=== PATIENT | male | born 1940 | race Hispanic/Latino ===

== ENCOUNTER 2017-04-27 11:30 | Outpatient (RCR) | payer MEDICARE ==
[~2017-04-27 11:30] MED LIST: ALENDRONATE SOD70 MG PO; AMLODIPINE-BEN1 EACH PO; ASPIRIN EC81 MG PO; ATORVASTATIN CA20 MG PO; CIPRO500 MG PO; CLOPIDOGREL75 MG PO; EXELON1 EACH TD; INSULIN 70/30 SC; IRON159 MG PO; LIDOCAINE VISC 2% SOLN 15 ML UDC ONE; METFORMIN HCL850 MG PO; OMEPRAZOLE40 MG PO; ULTRAM 50MG50 MG PO
== END 2017-04-29 ==
LOC: WCC 11:30
PROVIDERS: ATTEND Podiatrist Foot & Ankle Surgery
DX: E11.621 Type 2 diabetes mellitus with foot ulcer (principal); M86.172 Other acute osteomyelitis, left ankle and foot; L97.524 Non-pressure chronic ulcer of other part of left foot with necrosis of bone; I70.202 Unspecified atherosclerosis of native arteries of extremities, left leg; I10 Essential (primary) hypertension; I25.10 Atherosclerotic heart disease of native coronary artery without angina pectoris
CPT/HCPCS: 15275; 15276; G0463 ×9; Q4121

== ENCOUNTER → 2017-05-30 | Outpatient (RCR) | payer MEDICARE | LOC: WCC 05-02 12:44 | PROVIDERS: ATTEND Podiatrist Foot & Ankle Surgery | DX: E11.621 Type 2 diabetes mellitus with foot ulcer (principal); M86.172 Other acute osteomyelitis, left ankle and foot; L97.524 Non-pressure chronic ulcer of other part of left foot with necrosis of bone; L97.529 Non-pressure chronic ulcer of other part of left foot with unspecified severity; I70.202 Unspecified atherosclerosis of native arteries of extremities, left leg; B96.5 Pseudomonas (aeruginosa) (mallei) (pseudomallei) as the cause of diseases classified elsewhere; B96.89 Other specified bacterial agents as the cause of diseases classified elsewhere; I10 Essential (primary) hypertension; I25.10 Atherosclerotic heart disease of native coronary artery without angina pectoris | CPT/HCPCS: 15275; 97597; G0463 ×10; Q4131 ==

== ENCOUNTER → 2017-06-27 | Outpatient (RCR) | payer MEDICARE ==
[~2017-06-27] MED LIST changes: +MINERAL OIL/PETROLAT/GLYCERI 6OZ BTL ONE
== END ==
LOC: WCC 06-01 11:26
PROVIDERS: ATTEND Podiatrist Foot & Ankle Surgery
DX: E11.621 Type 2 diabetes mellitus with foot ulcer (principal); M86.172 Other acute osteomyelitis, left ankle and foot; L97.524 Non-pressure chronic ulcer of other part of left foot with necrosis of bone; I70.202 Unspecified atherosclerosis of native arteries of extremities, left leg; I10 Essential (primary) hypertension; I25.10 Atherosclerotic heart disease of native coronary artery without angina pectoris
CPT/HCPCS: 15275 ×2; 36415; 82948; 99212; 99213 ×9; Q4131 ×2

== ENCOUNTER 2017-07-25 12:30 | Outpatient (RCR) | payer MEDICARE ==
[~2017-07-25 12:30] MED LIST changes: -LIDOCAINE VISC 2% SOLN 15 ML UDC ONE
[2017-07-25] MEDS ORDERED: MINERAL OIL/PETROLAT/GLYCERI 6OZ BTL ONE (13:42)
== END 2017-07-28 ==
LOC: WCC 12:30
PROVIDERS: ATTEND Podiatrist Foot & Ankle Surgery
DX: E11.621 Type 2 diabetes mellitus with foot ulcer (principal); M86.172 Other acute osteomyelitis, left ankle and foot; L97.524 Non-pressure chronic ulcer of other part of left foot with necrosis of bone; I70.202 Unspecified atherosclerosis of native arteries of extremities, left leg; I10 Essential (primary) hypertension; I25.10 Atherosclerotic heart disease of native coronary artery without angina pectoris
CPT/HCPCS: 15275; 99212; 99213 ×6; Q4131

== ENCOUNTER → 2017-08-27 | Day surgery (SDC) | payer MEDICARE ==
[2017-08-24 08:48] LABS: BASOPHILS # (AUTO) 0.1 (0.0-0.1); BASOPHILS % 0.5 % (0.0-1.0); EOSINOPHILS # (AUTO) 0.2 (0.0-0.4); EOSINOPHILS % 1.8 % (0.0-6.0); HEMATOCRIT 33.9 % (38.2-49.6); HEMOGLOBIN 11.2 g/dL (14.0-18.0); LYMPHOCYTES # (AUTO) 1.8 (1.0-3.2); LYMPHOCYTES % 18.9 % (18.0-39.1); MEAN CORPUSCULAR VOLUME 72.6 fL (81-99); MONOCYTES # (AUTO) 0.8 (0.2-0.8); MONOCYTES % 8.1 % (4.4-11.3); NEUTROPHILS # (AUTO) 6.9 (2.1-6.9); NEUTROPHILS % 70.5 % (38.7-80.0); PLATELET COUNT 356 x10e3/uL (140-360); RED BLOOD COUNT 4.67 x10e6/uL (4.3-5.7)
[2017-08-24 09:08] LABS: ALANINE AMINOTRANSFERASE 11 IU/L (0-55); ALBUMIN 3.2 g/dL (3.5-5.0); ALBUMIN/GLOBULIN RATIO 0.7 (0.8-2.0); ALKALINE PHOSPHATASE 68 IU/L (40-150); ANION GAP 14.3 mmol/L (8-16); BLOOD UREA NITROGEN 10 mg/dL (7-26); BUN/CREATININE RATIO 15 (6-25); CALCIUM 9.6 mg/dL (8.4-10.2); CARBON DIOXIDE 24 mmol/L (22-29); CHLORIDE 95 mmol/L (98-107); CREATININE, SERUM 0.65 mg/dL (0.72-1.25); EST GLOMERULAR FILTRATION RATE > 60 ML/MIN (60-); GLUCOSE 139 mg/dL (74-118); POTASSIUM 4.3 mmol/L (3.5-5.1); SODIUM 129 mmol/L (136-145)
[~2017-08-27] VITALS: Ht 170.2 cm; Wt 55.3 kg
[~2017-08-27] MED LIST changes: +FENTANYL CITRATE/PF 100MCG/2 ML INJ ONE; +HEPARIN SOD/SOD CHLORIDE 2,000 ML ONE; +IOPAMIDOL 370 MG/ML 200 ML INFUS..BTL INJ ONE; +LIDOCAINE HCL 2% LOCAL 20 ML VIAL ONE; +MIDAZOLAM HCL 2 MG/2 ML VIAL ONE; -MINERAL OIL/PETROLAT/GLYCERI 6OZ BTL ONE; +SODIUM CHLORIDE 0.9% 1000ML 1,000 ML ONE
--- OUTSIDE RECORDS SUMMARY | 2017-08-27 07:07 | XMS REPORT ---
[facility] Address Unknown Phone Unavailable Care Team Providers Care Metallurgy Laboratory Technician Name Role Phone AV DONIS Unavailable Unavailable Problems This patient has no known problems. Allergies, Adverse Reactions, Alerts This patient has no known allergies or adverse reactions. Medications This patient has no known medications. Results Test Description Test Time Test Comments Text Results Atomic Results Result Comments CHEST 2 VIEWS [place] [address] Patient Name: KELLY GUAMAN MR #: [id number] : 1940 Age/Sex: 76/M Req #: [id number] Adm Physician: Ordered by: AV DONIS DPM Report #: [id number] Location: OR Room/Bed: Procedure: [id number] DX/CHEST 2 VIEWS Exam Date: 01/15/17 Exam Time: 1300 REPORT STATUS: Signed PROCEDURE: X-RAY CHEST , TWO VIEWS COMPARISON: 11/15/2016. INDICATIONS: pre-op foot surgery FINDINGS: LUNGS: No consolidations or edema. Biapical pleural- parenchymal scar. Right upper lobe calcified granuloma. PLEURA: No effusions or pneumothorax. HEART T MEDIASTINUM: The heart is within normal size-limits. Tortuous thoracic aorta with atherosclerotic calcification. BONES T SOFT TISSUES: No acute findings. CONCLUSION: No acute thoracic abnormality. Dictated by: Lyubov Doty M.D. on 01/15/2017 at 14:55 Electronically approved by: Lyubov Doty M.D. on 01/15/2017 at 14:55 Dictated By: LYUBOV DOTY MD [id number] Transcribed By: SAIDA on 01/15/17 1455 COPY TO: AV DONIS DPM
--- OUTSIDE RECORDS SUMMARY | 2017-08-27 07:07 | XMS REPORT | Continuity of Care Document ---
Author Author [facility] Organization [facility] Address [address] [place] [address] Phone Unavailable Care Team Providers Care Maths Tutor Name Role Phone KAREN GAMING PCP Insurance Providers Guarantor Juanito Guaman Address [address] [place] [address] Email NONE Payer Medicare A & B Policy Number [id number] Subscriber's Name Juanito Guaman Relationship 18 Self / Same As Patient Group Number [id number] Group Name RETIRED Effective Date 03 Advance Directives Directive Response Recorded Date/Time Does the patient have an advance directive? No 11/09/16 5:04am If yes, is advance directive on file with [facility]? No 11/09/16 5:04am If not on file with [facility] will patient provide a copy? No 01/16/17 8:17am Do you have a Directive to Physician? No 06/28/17 1:48pm Do you have a Medical Power of Cytology Technologist? No 06/28/17 1:48pm Do you have an out of hospital Do Not Resuscitate Order? No 06/28/17 1:48pm Do you have any special needs we should be aware of? No 06/28/17 1:48pm Do you have a support person here with you today? No 06/28/17 1:48pm Did patient receive Notice of Privacy Practices? Yes 06/28/17 1:48pm Did patient receive patient rights and responsibilities? Yes 06/28/17 1:48pm Problems Medical Problem Onset Date Status Cellulitis Unknown Gangrene Unknown Hyponatremia Unknown Osteomyelitis Unknown Poorly controlled diabetes mellitus Unknown Medications Current Home Medications Medication Dose Units Route Directions Days Qty Instructions Start Date Amlodipine Besylate/Benazepril (Amlodipine-Benazepril 5-20 Mg) 1 Each Capsule 1 Tab Oral Daily Atorvastatin Calcium 20 Mg Tablet 40 Mg Oral Bedtime 30 Tab Ciprofloxacin Hcl (Cipro) 500 Mg Tablet 500 Mg Oral Every 12 Hours 30 Tab Clopidogrel Bisulfate (Clopidogrel) 75 Mg Tablet 75 Mg Oral Daily 30 Days 30 Tab 10/25/16 Ferrous Sulfate, Dried (Iron) 159 Mg Tablet.er 1 Tab Oral Daily Insulin 70/30 8 Units Subcutaneously Twice A Day Metformin Hcl 850 Mg Tablet 850 Mg Oral Twice A Day 30 Tab Omeprazole 40 Mg Capsule.dr 40 Mg Oral Daily Rivastigmine Tartrate (Exelon) 1 Each Patch 9.5 Mg Transderm Daily Tramadol Hcl (Ultram 50MG*) 50 Mg Tab 50 Mg Oral Three Times A Day as needed for Pain Past Home Medications Medication Directions Ordered Status Alendronate Sodium 70 Mg Tablet, 70 Mg Oral Weekly Discontinued Aspirin (Aspirin Ec) 81 Mg Tablet.dr, 81 Mg Oral Daily 10/25/16 Discontinued Social History Social History Problem Response Recorded Date/Time Onset Date Status Hx Psychiatric Problems No 11/09/2016 5:04am Not Applicable Not Applicable Hx Eating Disorder No 11/09/2016 5:04am Not Applicable Not Applicable Hx Substance Use Disorder No 11/09/2016 5:04am Not Applicable Not Applicable Hx Depression No 11/09/2016 5:04am Not Applicable Not Applicable Hx Alcohol Use No 11/09/2016 5:04am Not Applicable Not Applicable Hx Substance Use Treatment No 11/09/2016 5:04am Not Applicable Not Applicable Hx Physical Abuse No 11/09/2016 5:04am Not Applicable Not Applicable Hospital Discharge Instructions No hospital discharge instruction information available. Plan of Care Prescriptions See Medication Section Functional Status No functional status information available. Allergies, Adverse Reactions, Alerts Allergen Type Severity Reaction Status Last Updated Aspirin Allergy Unknown RASH/FACIAL SWELLING Active 01/15/17 Immunizations No immunization information available. Vital Signs Acute Vital Signs Vital Response Date/Time Temperature (Fahrenheit) 97.0 degrees F (97.6 - 99.5) 11/16/2016 4:21pm Pulse Pulse Rate (adult) 69 bpm (60 - 90) 11/16/2016 4:21pm Respiratory Rate 20 bpm (12 - 24) 11/16/2016 4:21pm Blood Pressure 152/71 mm Hg 11/16/2016 4:21pm Results Laboratory Results Test Name Result Units Flags Reference Collection Date/Time Result Date/ Time Comments Triglycerides Level 203 MG/DL H 0-149 10/23/2016 9:45am 10/23/2016 10: 19am Cholesterol Level 185 MD/DL 0-199 10/23/2016 9:45am 10/23/2016 10:19am Less than 200 mg/dL Low Risk 201 - 239 mg/dL Borderline Risk 240 mg/dl and greater High Risk LDL Cholesterol 93 MG/DL 60-130 10/23/2016 9:45am 10/23/2016 10:19am HDL Cholesterol 51 MG/DL 40-60 10/23/2016 9:45am 10/23/2016 10:19am Cholesterol/HDL Ratio 3.6 L 3.9-4.7 10/23/2016 9:45am 10/23/2016 10: 19am Prothrombin Time 13.6 seconds 11.9-14.5 11/11/2016 10:30am 11/11/2016 10:52am Prothromb Time International Ratio 0.99 11/11/2016 10:30am 2016 10:52am Oral Anticoagulant Therapy INR Values: 1. Low Intensity Therapy 1.5 - 2.0 2. Moderate Intensity Therapy 2.0 - 3.0 3. High Intensity Therapy(1) 2.5 - 3.5 4. High Intensity Therapy(2) 3.0 - 4.0 5. Panic Value INR > 5.0 Activated Partial Thromboplast Time 50.9 seconds H 23.8-35.5 11/11/2016 10:30am 11/11/2016 11:39am Urine Color STRAW YELLOW 11/11/2016 11:15am 11/11/2016 12:08pm Urine Clarity CLEAR CLEAR 11/11/2016 11:1511/11/2016 12:08pm Urine Specific [place] 1.010 1.010-1.025 11/11/2016 11:152016 12:08pm Urine pH 8 H 5 - 7 11/11/2016 11:11/11/2016 12:08pm Urine Leukocyte Esterase NEGATIVE NEGATIVE 11/11/2016 11:152016 12:08pm Urine Nitrite NEGATIVE NEGATIVE 11/11/2016 11:1511/11/2016 12: 08pm Urine Protein NEGATIVE NEGATIVE 11/11/2016 11:11/11/2016 12: 08pm Urine Glucose (UA) 1+ H NEGATIVE 11/11/2016 11:1511/11/2016 12: 08pm Urine Ketones TRACE H NEGATIVE 11/11/2016 11:11/11/2016 12:08pm Urine Urobilinogen 0.2 mg/dL 0.2 - 1 11/11/2016 11:1511/11/2016 12: 08pm Urine Bilirubin NEGATIVE NEGATIVE 11/11/2016 11:11/11/2016 12: 08pm Urine Blood NEGATIVE NEGATIVE 11/11/2016 11:1511/11/2016 12:08pm Urine WBC 0-5 /HPF 0-5 11/11/2016 11:1511/11/2016 12:27pm Urine RBC 0-5 /HPF 0-5 11/11/2016 11:1511/11/2016 12:27pm Urine Bacteria NONE /HPF NONE 11/11/2016 11:1511/11/2016 12:27pm Urine Epithelial Cells RARE /LPF NONE 11/11/2016 11:1511/11/2016 12: 27pm Urine Sperm PRESENT NONE 11/11/2016 11:1511/11/2016 12:27pm Lactic Acid Level 10.5 MG/DL 4.5-19.8 11/08/2016 10:30pm 11/08/2016 10: 54pm Magnesium Level 2.2 MG/DL H 1.3-2.1 11/08/2016 9:15pm 11/08/2016 10: 42pm Creatine Kinase 29 IU/L L 30-200 11/09/2016 4:35pm 11/09/2016 5:06pm Creatine Kinase MB 0.70 ng/mL 0.00-5.00 11/09/2016 4:35pm 11/09/2016 5: 35pm Troponin I 0.004 ng/mL 0-0.300 11/09/2016 4:35pm 11/09/2016 5:35pm Vancomycin Level Trough 7.7 ug/mL 5.0-10.0 11/15/2016 8:30am 2016 9:15am White Blood Count 10.16 x10e3/uL 4.8-10.8 03/14/2017 1:35pm 03/14/2017 5:10pm Red Blood Count 4.37 x10e6/uL 4.3-5.7 03/14/2017 1:35pm 03/14/2017 5: 10pm Hemoglobin 11.3 g/dL L 14.0-18.0 03/14/2017 1:35pm 03/14/2017 5:10pm Hematocrit 34.5 % L 38.2-49.6 03/14/2017 1:35pm 03/14/2017 5:10pm Mean Corpuscular Volume 78.9 fL L 81-99 03/14/2017 1:35pm 03/14/2017 5: 10pm Mean Corpuscular Hemoglobin 25.9 pg L 28-32 03/14/2017 1:35pm 2016 5:10pm Mean Corpuscular Hemoglobin Concent 32.8 g/dL 31-35 03/14/2017 1:35pm 03/14/2017 5:10pm Red Cell Distribution Width 16.3 % H 11.7-14.4 03/14/2017 1:35pm 2016 5:10pm Platelet Count 415 x10e3/uL H 140-360 03/14/2017 1:35pm 03/14/2017 5: 10pm Neutrophils (%) (Auto) 70.0 % 38.7-80.0 03/14/2017 1:35pm 03/14/2017 5: 10pm Lymphocytes (%) (Auto) 21.0 % 18.0-39.1 03/14/2017 1:35pm 03/14/2017 5: 10pm Monocytes (%) (Auto) 7.4 % 4.4-11.3 03/14/2017 1:35pm 03/14/2017 5: 10pm Eosinophils (%) (Auto) 0.7 % 0.0-6.0 03/14/2017 1:35pm 03/14/2017 5: 10pm Basophils (%) (Auto) 0.5 % 0.0-1.0 03/14/2017 1:35pm 03/14/2017 5:10pm IM GRANULOCYTES % 0.4 % 0.0-1.0 03/14/2017 1:35pm 03/14/2017 5:10pm Neutrophils # (Auto) 7.1 H 2.1-6.9 03/14/2017 1:35pm 03/14/2017 5: 10pm Lymphocytes # (Auto) 2.1 1.0-3.2 03/14/2017 1:35pm 03/14/2017 5:10pm Monocytes # (Auto) 0.8 0.2-0.8 03/14/2017 1:35pm 03/14/2017 5:10pm Eosinophils # (Auto) 0.1 0.0-0.4 03/14/2017 1:35pm 03/14/2017 5:10pm Basophils # (Auto) 0.1 0.0-0.1 03/14/2017 1:35pm 03/14/2017 5:10pm Absolute Immature Granulocyte (auto 0.04 x10e3/uL 0-0.1 03/14/2017 1: 35pm 03/14/2017 5:10pm Sodium Level 131 mmol/L L 136-145 03/14/2017 1:35pm 03/14/2017 5:30pm Potassium Level 4.5 mmol/L 3.5-5.1 03/14/2017 1:3503/14/2017 5:30pm Chloride Level 96 mmol/L L 98-107 03/14/2017 1:3503/14/2017 5:30pm Carbon Dioxide Level 23 mmol/L 22-29 03/14/2017 1:35pm 03/14/2017 5: 30pm Anion Gap 16.5 mmol/L H 8-16 03/14/2017 1:35pm 03/14/2017 5:30pm Blood Urea Nitrogen 8 mg/dL 7-26 03/14/2017 1:35pm 03/14/2017 5:30pm Creatinine 0.69 mg/dL L 0.72-1.25 03/14/2017 1:35pm 03/14/2017 5:30pm BUN/Creatinine Ratio 12 6-25 03/14/2017 1:35pm 03/14/2017 5:30pm Estimat Glomerular Filtration Rate > 60 ML/MIN 60- 03/14/2017 1:35pm 5:30pm Ranges were taken from the National Kidney Disease Education Program and the National Kid[employer] Foundation literature. Reference ranges: 60 or greater: Normal 16-59 (for 3 consecutive months): Chronic kidney disease 15 or less: Kidney failure Glucose Level 94 mg/dL 74-118 03/14/2017 1:35pm 03/14/2017 5:30pm Calcium Level 9.5 mg/dL 8.4-10.2 03/14/2017 1:35pm 03/14/2017 5:30pm Hemoglobin A1c Percent 6.1 % 4.0-7.0 03/14/2017 1:35pm 03/14/2017 5: 28pm Total Bilirubin 0.5 mg/dL 0.2-1.2 03/14/2017 1:35pm 03/14/2017 5:30pm Aspartate Amino Transf (AST/SGOT) 23 IU/L 5-34 03/14/2017 1:35pm 2016 5:30pm Alanine Aminotransferase (ALT/SGPT) 17 IU/L 0-55 03/14/2017 1:35pm 5:30pm Total Protein 8.6 g/dL H 6.5-8.1 03/14/2017 1:35pm 03/14/2017 5:30pm Albumin 3.5 g/dL 3.5-5.0 03/14/2017 1:35pm 03/14/2017 5:30pm Globulin 5.1 g/dL H 2.3-3.5 03/14/2017 1:35pm 03/14/2017 5:30pm Albumin/Globulin Ratio 0.7 L 0.8-2.0 03/14/2017 1:35pm 03/14/2017 5: 30pm Alkaline Phosphatase 98 IU/L 40-150 03/14/2017 1:35pm 03/14/2017 5: 30pm Prealbumin 12 mg/dL 9-32 03/14/2017 1:35pm 03/15/2017 10:22am Performed at: - [facility] [id number] Acupuncturist: Brenden Shay MD, Phone: [phone] Bedside Glucose 276 mg/dL H 70-120 06/04/2017 10:43am 06/04/2017 10: 53am Meter ID: [id number] Microbiology Results Procedure Source Organism/Result Collection Date/Time Result Date/Time Result Status Blood Culture Blood GRAM POSITIVE MARIANO 11/08/2016 9:19pm 11/14/2016 8:11am Final Blood Culture Blood NO GROWTH AFTER 5 DAYS, FINAL REPORT 11/08/2016 9:19pm 11/14/2016 5:23am Final Wound Culture Foot, Left PSEUDOMONAS AERUGINOSA 01/16/2017 10:37am 2016 10:08am Final Procedures Procedure Status Date Provider(s) DETACHMENT AT LEFT FOOT, PARTIAL 1ST RAY, OPEN APPROACH Completed 11/15/16 PAULINE GALEAS DPM INSERTION OF INFUSION DEV INTO SUP VENA CAVA, PERC APPROACH Completed DOROTHY HERZOG MD SKIN SUB GRAFT FACE/NK/HF/G Completed 01/16/17 AV DONIS DPM AMPUTATION THRU METATARSAL Completed 01/16/17 AV DONIS DPM X-ray of chest, two views Active 11/08/16 JOHN DONAHUE MD X-ray of chest, two views Active 01/15/17 AV DONIS DPM Encounters Encounter Location Arrival/Admit Date Discharge/Depart Date Attending Provider Discharged [facility] 07/25/17 12:30pm 11:59pm AV DONIS DPM Discharged [facility]ring [facility] 06/01/17 11:26am 11:59pm AV DONIS DPM Discharged [facility]ring [facility] 05/02/17 12:44pm 11:59pm AV DONIS DPM Discharged [facility]ring [facility] 03/30/17 11:59am 11:59pm AV DONIS DPM Discharged [facility]urring [facility] 02/28/17 9:11am 03/29/17 11:59pm AV DONIS DPM Discharged [facility]ring [facility] 01/29/17 7:26am 02/27/17 11:59pm JOHANNA NOWAK MD Registered Surgical Day Care [facility] 01/16/17 8:17am AV DONIS DPM Discharged [facility]ring [facility] 12/29/16 9:25am 01/27/17 11:59pm AV DONIS DPM Departed Emergency Room [facility] 12/10/16 5:14pm 7:11pm LOUISA FERNÁNDEZ MD Discharged [facility]ring [facility] 12/04/16 7:48am 12/28/16 11:59pm AV DONIS DPM Discharged [facility]urring [facility] 11/20/16 9:15am 11/27/16 11:59pm JOHANNA NOWAK MD Discharged Inpatient [facility] 11/09/16 12:57am 6:37pm STEPHEN DUFF MD Discharged Inpatient (obs) [facility] 10/24/16 5:32pm 12:56pm DAMARIS HAIDER MD Registered Surgical Day Care [facility] 10/24/16 6:48am DAMARIS HAIDER MD
[2017-08-27 07:09] VITALS: BP 120/67
[2017-08-27 11:26] VITALS: BP 135/68
--- NOTE | 2017-10-02 12:38 | Operative Report ---
DATE OF PROCEDURE: August 27, 2017 INDICATIONS: Coronary artery disease, abnormal stress test. PROCEDURES PERFORMED: 1. Left heart catheterization, selective coronary angiography. 2. Deployment of right groin Vascade. Access was obtained in the right femoral artery. A 6-Nauruan sheath was placed. Diagnostic coronary angiogram revealed a patent left main. Left anterior descending artery 50%, mid 90%, circumflex 90% tandem lesions. 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 Grade 2 collaterals from the left coronary system supplied the right posterior descending artery. Left internal mammary artery was widely patent. Right groin repaired using Vascade closer device. Patient was discharged home with recommendations for coronary artery bypass surgery. Job#: [id number]
== END | disposition home or self-care (01) ==
LOC: CATH LAB 07:05
PROVIDERS: ATTEND Internal Medicine Interventional Cardiology
DX: I25.10 Atherosclerotic heart disease of native coronary artery without angina pectoris (principal); I25.82 Chronic total occlusion of coronary artery; R94.39 Abnormal result of other cardiovascular function study; I10 Essential (primary) hypertension; Z88.6 Allergy status to analgesic agent; Z01.812 Encounter for preprocedural laboratory examination; Z79.02 Long term (current) use of antithrombotics/antiplatelets; Z79.4 Long term (current) use of insulin
CPT/HCPCS: 36415; 77002; 80053; 85025; 93458; C1760; C1769; J2001; J2250; J7030; Q9967; 36140

== ENCOUNTER → 2018-10-04 | Outpatient (CLI) | payer MEDICARE ==
[~2018-10-04] MED LIST changes: -FENTANYL CITRATE/PF 100MCG/2 ML INJ ONE; -HEPARIN SOD/SOD CHLORIDE 2,000 ML ONE; -IOPAMIDOL 370 MG/ML 200 ML INFUS..BTL INJ ONE; -LIDOCAINE HCL 2% LOCAL 20 ML VIAL ONE; -MIDAZOLAM HCL 2 MG/2 ML VIAL ONE; +REGADENOSON 0.4 MG/5 ML SYR IV ONE; -SODIUM CHLORIDE 0.9% 1000ML 1,000 ML ONE
== END ==
LOC: NM 09:54
PROVIDERS: ATTEND Internal Medicine
DX: I25.10 Atherosclerotic heart disease of native coronary artery without angina pectoris (principal); Z95.1 Presence of aortocoronary bypass graft
CPT/HCPCS: 78452; 93017; A9502; J2785

== ENCOUNTER 2018-10-17 14:31 | Observation (INO) | payer MEDICARE ==
[2018-10-16 14:47] LABS: BASOPHILS # (AUTO) 0.1 (0.0-0.1); BASOPHILS % 0.5 % (0.0-1.0); EOSINOPHILS # (AUTO) 0.1 (0.0-0.4); EOSINOPHILS % 0.9 % (0.0-6.0); HEMATOCRIT 38.6 % (38.2-49.6); HEMOGLOBIN 12.9 g/dL (14.0-18.0); LYMPHOCYTES # (AUTO) 1.6 (1.0-3.2); LYMPHOCYTES % 14.5 % (18.0-39.1); MEAN CORPUSCULAR HEMOGLOBIN 29.3 pg (28-32); MEAN CORPUSCULAR HGB CONC 33.4 g/dL (31-35); MEAN CORPUSCULAR VOLUME 87.5 fL (81-99); MONOCYTES # (AUTO) 0.8 (0.2-0.8); MONOCYTES % 7.4 % (4.4-11.3); NEUTROPHILS # (AUTO) 8.4 (2.1-6.9); NEUTROPHILS % 76.3 % (38.7-80.0); PLATELET COUNT 281 x10e3/uL (140-360); RED BLOOD COUNT 4.41 x10e6/uL (4.3-5.7); RED CELL DISTRIBUTION WIDTH 12.3 % (11.7-14.4)
[2018-10-16 14:57] LABS: INR 0.96; PROTHROMBIN TIME 13.3 seconds (11.9-14.5)
[2018-10-16 15:07] LABS: ALANINE AMINOTRANSFERASE 22 IU/L (0-55); ALBUMIN 3.8 g/dL (3.5-5.0); ALKALINE PHOSPHATASE 70 IU/L (40-150); ANION GAP 13.8 mmol/L (8-16); BLOOD UREA NITROGEN 15 mg/dL (7-26); BUN/CREATININE RATIO 20 (6-25); CALCIUM 9.6 mg/dL (8.4-10.2); CARBON DIOXIDE 25 mmol/L (22-29); CHLORIDE 93 mmol/L (98-107); CREATININE, SERUM 0.76 mg/dL (0.72-1.25); EST GLOMERULAR FILTRATION RATE > 60 ML/MIN (60-); GLUCOSE 170 mg/dL (74-118); POTASSIUM 4.8 mmol/L (3.5-5.1); SODIUM 127 mmol/L (136-145)
[~2018-10-17] VITALS: Ht 170.2 cm; Wt 62.1 kg
[~2018-10-17 14:31] MED LIST changes: -REGADENOSON 0.4 MG/5 ML SYR IV ONE
--- OUTSIDE RECORDS SUMMARY | 2018-10-17 14:34 | XMS REPORT | Clinical Summary ---
Author Author [employer] [facility] [employer] Address Unknown Phone Unavailable Care Team Providers Care Manager Oracle Database Name Role Phone Asked, No Pcp PCP Unavailable Allergies Comments Active Allergy Reactions Severity Noted Date Aspirin Swelling High 11/07/2017 Medications End Date Status Medication Sig Dispensed Refills Start Date Active insulin 70/30 NPH and Inject 10 0 regular human (HumuLIN Units under 70/30) 100 unit/mL the skin 2 (70-30) injection (two) times a day before meals. Active alendronate (FOSAMAX) 70 Take 70 mg by 0 MG tablet mouth every 7 days. Take in the morning with a full glass of water on an empty stomach, do NOT take anything else by mouth or lie down for the next 30 min. TAKES SUNDAY Active metFORMIN (GLUCOPHAGE) Take 500 mg 0 500 mg tablet by mouth 2 (two) times a day with meals. Active clopidogrel (PLAVIX) 75 Take 75 mg by 0 mg tablet mouth daily. Active omeprazole (PriLOSEC) 40 Take 40 mg by 0 MG capsule mouth daily. 11/17/2018 Active atorvastatin (LIPITOR) 10 Take 1 tablet 90 tablet 0 MG tablet (10 mg total) 8 by mouth nightly. 11/17/2018 Active ferrous sulfate 325 (65 Take 1 tablet 90 tablet 0 FE) MG tablet (325 mg 8 total) by mouth 2 (two) times a day with meals. 11/17/2017 Discontinued amlodipine-benazepril Take 1 0 (LOTREL) 10-20 mg per capsule by capsule mouth daily. 02/15/2018 metoprolol tartrate Take 1 tablet 180 tablet 0 (LOPRESSOR) 25 mg tablet (25 mg total) 8 by mouth 2 (two) times a day for 90 days. Active Problems Problem Noted Date Physical deconditioning 11/13/2017 Postoperative anemia due to acute blood loss 11/13/2017 Thrombocytopenia due to blood loss 11/13/2017 CAD (coronary artery disease) 11/12/2017 S/P CABG x 3 11/12/2017 Acute postoperative pulmonary insufficiency 11/12/2017 Post-op pain 11/12/2017 Essential hypertension 11/12/2017 Type 2 diabetes mellitus without complication 11/12/2017 Encounters Care Team Description Date Type Specialty Nancy Aragon RN 11/17/2017 Patient Quality Outreach Roberto Carlos Martines MD CABx3 (AO-FREE POWER-LAD; AO-OM2-PDA) 11/12/2017 Surgery Cardiothoracic Surgery Jennifer Eugene NP 11/12/2017 Anesthesia Cardiothoracic Surgery Event Roberto Carlos Martines MD 11/12/2017 Hospital Cardiovascular - Encounter 11/17/2017 Roberto Carlos Martines MD 11/07/2017 Hospital Radiology Encounter Roberto Carlos Martines MD 11/07/2017 Hospital Pulmonology Encounter Roberto Carlos Martines MD Preop testing (Primary Dx) 11/07/2017 Pre-Admit Pre-Admission Testing Testing Appointment after 10/16/2017 Social History Date Tobacco Use Types Packs/Day Years Used Never Smoker Smokeless Tobacco: Never Used Alcohol Use Drinks/Week oz/Week Comments Yes 2 Standard 1.2 drinks or equivalent Sex Assigned at Date Recorded Not on file Industry Job Start Date Occupation Not on file Not on file Not on file Travel End Travel History Travel Start No recent travel history available. Last Filed Vital Signs Time Taken Vital Sign Reading 11/17/2017 11:14 AM CDT Blood Pressure 124/59 11/17/2017 11:14 AM CDT Pulse 86 11/17/2017 11:14 AM CDT Temperature 36.8 C (98.2 F) 11/17/2017 11:14 AM CDT Respiratory Rate 14 11/17/2017 11:14 AM CDT Oxygen Saturation 99% - Inhaled Oxygen - Concentration 11/17/2017 5:00 AM CDT Weight 59.5 kg (131 lb 3.2 oz) 11/12/2017 1:28 PM CDT Height 170 cm (5' 6.93") 11/12/2017 1:28 PM CDT Body Mass Index 20.59 Plan of Treatment Health Maintenance Due Date Last Done Comments DIABETIC RETINAL EYE EXAM 1938 DIABETIC FOOT EXAM 1948 URINE MICROALBUMIN 1948 SHINGLES VACCINES (#1) 1988 65+ PNEUMOCOCCAL VACCINE 09/12/2003 04/30/2017 (2 of 2 - PPSV23) INFLUENZA VACCINE 11/28/2018 04/30/2017 Implants Device Identifier Shelf Expiration Date Model / Serial / Lot Implanted Type [place] [id number] / / Lead Pace Gonzalo Mycrdl Unipol Tmpry Cardiovasc N/A: N/A [employer] Streamline - [id number] [facility] - Implanted: 11/12/2017 (Quantity not Implants CARDIAC on file) SRGRY 02/27/2022 [id number] / / [id number] Drain Fluted Full Chnl Silicone Rnd Surgical N/A: N/A CR BARD Hubless 19fr 1/4in 6.3mm - Implants; [id number] Expanders; Implanted: 11/12/2017 (Quantity not Extenders; on file) Surgical Wires 02/27/2022 [id number] / / [id number] Drain Fluted Full Chnl Silicone Rnd Surgical N/A: N/A CR BARD Hubless 19fr 1/4in 6.3mm - Implants; [id number] Expanders; Implanted: 11/12/2017 (Quantity not Extenders; on file) Surgical Wires 05/27/2022 [id number] / / [id number] Silver Perph Vasclr Ptfe 1.2x10cm Vascular N/A: N/A BARD 1.65mm - [id number] Graft PERIPHERAL Implanted: 11/12/2017 (Quantity not VASCULAR on file) Procedures Comments Procedure Name Priority Date/Time Associated Diagnosis POC GLUCOSE Routine 11/17/2017 12:27 PM CDT POC GLUCOSE Routine 11/17/2017 11:13 AM CDT POC GLUCOSE Routine 11/17/2017 7:41 AM CDT HC COMPLETE BLD COUNT Routine 11/17/2017 W/AUTO DIFF 4:45 AM CDT ZZESTIMATED GFR Routine 11/17/2017 4:00 AM CDT MAGNESIUM LEVEL Routine 11/17/2017 4:00 AM CDT BASIC METABOLIC PANEL Routine 11/17/2017 4:00 AM CDT POC GLUCOSE Routine 11/16/2017 9:13 PM CDT POC GLUCOSE Routine 11/16/2017 4:49 PM CDT XR CHEST 1 VW PORTABLE Routine 11/16/2017 1:34 PM CDT POC GLUCOSE Routine 11/16/2017 12:23 PM CDT POC GLUCOSE Routine 11/16/2017 8:03 AM CDT HC COMPLETE BLD COUNT Routine 11/16/2017 W/AUTO DIFF 5:00 AM CDT ZZESTIMATED GFR Routine 11/16/2017 4:00 AM CDT MAGNESIUM LEVEL Routine 11/16/2017 4:00 AM CDT BASIC METABOLIC PANEL Routine 11/16/2017 4:00 AM CDT POC GLUCOSE Routine 11/15/2017 10:22 PM CDT POC GLUCOSE Routine 11/15/2017 5:00 PM CDT POC GLUCOSE Routine 11/15/2017 12:07 PM CDT POC GLUCOSE Routine 11/15/2017 7:30 AM CDT POC GLUCOSE Routine 11/15/2017 5:46 AM CDT POC GLUCOSE Routine 11/15/2017 5:11 AM CDT CBC HEMOGRAM Routine 11/15/2017 3:03 AM CDT ZZESTIMATED GFR Routine 11/15/2017 12:00 AM CDT PHOSPHORUS LEVEL Routine 11/15/2017 12:00 AM CDT IONIZED CALCIUM Routine 11/15/2017 12:00 AM CDT MAGNESIUM LEVEL Routine 11/15/2017 12:00 AM CDT BASIC METABOLIC PANEL Routine 11/15/2017 12:00 AM CDT POC GLUCOSE Routine 11/14/2017 9:11 PM CDT POC GLUCOSE Routine 11/14/2017 4:40 PM CDT POC GLUCOSE Routine 11/14/2017 1:39 PM CDT POC GLUCOSE Routine 11/14/2017 11:56 AM CDT POC GLUCOSE Routine 11/14/2017 11:24 AM CDT POC GLUCOSE Routine 11/14/2017 10:08 AM CDT POC GLUCOSE Routine 11/14/2017 7:43 AM CDT POC GLUCOSE Routine 11/14/2017 6:28 AM CDT ECG 12-LEAD Routine 11/14/2017 6:14 AM CDT POC GLUCOSE Routine 11/14/2017 5:38 AM CDT POC GLUCOSE Routine 11/14/2017 4:34 AM CDT POC GLUCOSE Routine 11/14/2017 4:03 AM CDT POC GLUCOSE Routine 11/14/2017 1:32 AM CDT ZZESTIMATED GFR Routine 11/14/2017 1:15 AM CDT MAGNESIUM LEVEL Routine 11/14/2017 1:15 AM CDT BASIC METABOLIC PANEL Routine 11/14/2017 1:15 AM CDT POC GLUCOSE Routine 11/14/2017 12:33 AM CDT CBC HEMOGRAM Routine 11/14/2017 12:30 AM CDT POC GLUCOSE Routine 11/14/2017 12:03 AM CDT POC GLUCOSE Routine 11/14/2017 12:01 AM CDT POC GLUCOSE Routine 11/13/2017 8:11 PM CDT IONIZED CALCIUM Routine 11/13/2017 4:40 PM CDT PHOSPHORUS LEVEL Routine 11/13/2017 4:40 PM CDT MAGNESIUM LEVEL Routine 11/13/2017 4:40 PM CDT POTASSIUM LEVEL Routine 11/13/2017 4:40 PM CDT POC GLUCOSE Routine 11/13/2017 3:40 PM CDT POC GLUCOSE Routine 11/13/2017 2:21 PM CDT POC GLUCOSE Routine 11/13/2017 11:17 AM CDT XR CHEST 1 VW PORTABLE STAT 11/13/2017 9:38 AM CDT POC GLUCOSE Routine 11/13/2017 7:11 AM CDT XR CHEST 1 VW PORTABLE Routine 11/13/2017 6:52 AM CDT POC GLUCOSE Routine 11/13/2017 6:05 AM CDT ECG 12-LEAD Routine 11/13/2017 5:44 AM CDT POC GLUCOSE Routine 11/13/2017 5:02 AM CDT IONIZED CALCIUM Routine 11/13/2017 4:00 AM CDT PHOSPHORUS LEVEL Routine 11/13/2017 4:00 AM CDT O2 SATURATION, VENOUS Routine 11/13/2017 4:00 AM CDT ZZESTIMATED GFR Routine 11/13/2017 4:00 AM CDT MAGNESIUM LEVEL Routine 11/13/2017 4:00 AM CDT BASIC METABOLIC PANEL Routine 11/13/2017 4:00 AM CDT CBC HEMOGRAM Routine 11/13/2017 4:00 AM CDT POC GLUCOSE Routine 11/13/2017 3:55 AM CDT POC GLUCOSE Routine 11/13/2017 2:46 AM CDT POC GLUCOSE Routine 11/13/2017 1:00 AM CDT POC GLUCOSE Routine 11/13/2017 12:20 AM CDT POC GLUCOSE Routine 11/12/2017 10:59 PM CDT POC GLUCOSE Routine 11/12/2017 10:06 PM CDT POC GLUCOSE Routine 11/12/2017 9:06 PM CDT ECG 12-LEAD Routine 11/12/2017 8:39 PM CDT XR CHEST 1 VW PORTABLE Routine 11/12/2017 8:35 PM CDT IONIZED CALCIUM, ARTERIAL Routine 11/12/2017 8:30 PM CDT PROTHROMBIN TIME WITH INR Routine 11/12/2017 8:30 PM CDT PARTIAL THROMBOPLASTIN Routine 11/12/2017 TIME (PTT) 8:30 PM CDT HC COMPLETE BLD COUNT Routine 11/12/2017 W/AUTO DIFF 8:30 PM CDT ARTERIAL BLOOD GAS Routine 11/12/2017 8:30 PM CDT ZZESTIMATED GFR Routine 11/12/2017 8:23 PM CDT PHOSPHORUS LEVEL Routine 11/12/2017 8:23 PM CDT MAGNESIUM LEVEL Routine 11/12/2017 8:23 PM CDT BASIC METABOLIC PANEL Routine 11/12/2017 8:23 PM CDT IONIZED CALCIUM, ARTERIAL STAT 11/12/2017 7:10 PM CDT GLUCOSE LEVEL, SYRINGE STAT 11/12/2017 7:10 PM CDT HEMOGLOBIN, SYRINGE STAT 11/12/2017 7:10 PM CDT POTASSIUM, SYRINGE STAT 11/12/2017 7:10 PM CDT SODIUM LEVEL, SYRINGE STAT 11/12/2017 7:10 PM CDT ARTERIAL BLOOD GAS, STAT 11/12/2017 CORRECTED 7:10 PM CDT FIBRINOGEN Routine 11/12/2017 6:32 PM CDT PLATELET COUNT Routine 11/12/2017 6:32 PM CDT PROTHROMBIN TIME WITH INR Routine 11/12/2017 6:32 PM CDT LACTIC ACID, SYRINGE Routine 11/12/2017 6:32 PM CDT GLUCOSE LEVEL, SYRINGE Routine 11/12/2017 6:32 PM CDT HEMOGLOBIN, SYRINGE Routine 11/12/2017 6:32 PM CDT IONIZED CALCIUM, ARTERIAL Routine 11/12/2017 6:32 PM CDT SODIUM LEVEL, SYRINGE Routine 11/12/2017 6:32 PM CDT POTASSIUM, SYRINGE Routine 11/12/2017 6:32 PM CDT ARTERIAL BLOOD GAS, Routine 11/12/2017 CORRECTED 6:32 PM CDT TRANSFUSE RED BLOOD CELLS Routine 11/12/2017 6:08 PM CDT GLUCOSE LEVEL, SYRINGE STAT 11/12/2017 5:35 PM CDT IONIZED CALCIUM, ARTERIAL STAT 11/12/2017 5:35 PM CDT HEMOGLOBIN, SYRINGE STAT 11/12/2017 5:35 PM CDT POTASSIUM, SYRINGE STAT 11/12/2017 5:35 PM CDT SODIUM LEVEL, SYRINGE STAT 11/12/2017 5:35 PM CDT ARTERIAL BLOOD GAS, STAT 11/12/2017 CORRECTED 5:35 PM CDT GLUCOSE LEVEL, SYRINGE STAT 11/12/2017 5:01 PM CDT IONIZED CALCIUM, ARTERIAL STAT 11/12/2017 5:01 PM CDT SODIUM LEVEL, SYRINGE STAT 11/12/2017 5:01 PM CDT HEMOGLOBIN, SYRINGE STAT 11/12/2017 5:01 PM CDT POTASSIUM, SYRINGE STAT 11/12/2017 5:01 PM CDT ARTERIAL BLOOD GAS, STAT 11/12/2017 CORRECTED 5:01 PM CDT TRANSFUSE RED BLOOD CELLS Routine 11/12/2017 4:39 PM CDT GLUCOSE LEVEL, SYRINGE STAT 11/12/2017 4:28 PM CDT IONIZED CALCIUM, ARTERIAL STAT 11/12/2017 4:28 PM CDT LACTIC ACID, SYRINGE STAT 11/12/2017 4:28 PM CDT HEMOGLOBIN, SYRINGE STAT 11/12/2017 4:28 PM CDT SODIUM LEVEL, SYRINGE STAT 11/12/2017 4:28 PM CDT POTASSIUM, SYRINGE STAT 11/12/2017 4:28 PM CDT ARTERIAL BLOOD GAS, STAT 11/12/2017 CORRECTED 4:28 PM CDT ANESTHESIA CHELE Routine 11/12/2017 4:17 PM CDT Procedure Note - Ariadne Covarrubias MD - 11/12/2017 4:17 PM CDT Procedure Performed: CHELE Start Time: 11/12/2017 1:38 PM End Time: 11/12/2017 7:23 PM Preanesth esia Checklist: Patient identified , IV assessed, risks and benefits discussed, monitors and equipment assessed, procedure being performed at surgeon's request, anesthesia consent obtained. General Procedure Informatio n Diagnostic Indication s for Echo: hemodynami c monitoring Physician Requesting Echo: ROBERTO CARLOS MARTINES Location performed: OR Intubated Bite block not placed Heart visualized Probe Insertion: Easy Probe Type: Multiplane Modalities : 2D only, color flow mapping and pulse wave Doppler Echocardi ographic and Doppler Measuremen ts Ventricle s Right Ventricle: Cavity size normal. Hypertroph y not present. Thrombus not present. Global function normal. Ejection Fraction 50%. Left Ventricle: Cavity size normal. Hypertroph y present. Thrombus not present. Global Function normal. Ejection Fraction 55%. Ventricul ar Regional Function: 1- Basal Anterosept al: normal 2- Basal Anterior: normal 3- Basal Anterolate ral: normal 4- Basal Inferolate ral: normal 5- Basal Inferior: normal 6- Basal Inferosept al: normal 7- Mid Anterosept al: normal 8- Mid Anterior: normal 9- Mid Anterolate ral: normal 10- Mid Inferolate ral: normal 11- Mid Inferior: normal 12- Mid Inferosept al: normal 13- Apical Anterior: normal 14- Apical Lateral: normal 15- Apical Inferior: normal 16- Apical Septal: normal 17- [place]: normal Valves Aortic Valve: Annulus normal. Stenosis not present. Regurgitat ion absent. Leaflets normal. Leaflet motions normal. Mitral Valve: Annulus normal. Stenosis not present. Regurgitat ion absent. Leaflets normal. Leaflet motions normal. Tricuspid Valve: Annulus normal. Stenosis not present. Regurgitat ion absent. Leaflets normal. Leaflet motions normal. Pulmonic Valve: Annulus normal. Stenosis not present. Regurgitat ion absent. Aorta Ascending Aorta: Size normal. Diameter 2 cm. Dissection not present. Plaque thickness less than 3 mm. Mobile plaque not present. Aortic Arch: Size normal. Diameter 2.3 cm. Dissection not present. Plaque thickness greater than 3 mm. Mobile plaque not present. Descending Aorta: Size normal. Diameter 2.1 cm. Dissection not present. Plaque thickness greater than 3 mm. Mobile plaque not present. Atria Right Atrium: Size normal. Spontaneou s echo contrast not present. Thrombus not present. Tumor not present. Device not present. Left Atrium: Size dilated. Spontaneou s echo contrast not present. Thrombus not present. Tumor not present. Device not present. Left atrial appendage normal. Septa Atrial Septum: Intra-atri al septal morphology aneurysmal . Ventricul ar Septum: Intra-vent ricular septum morphology normal. Diastolic Function Measuremen ts: Diastolic Dysfunctio n Grade=II E=ms A=ms E/A Ratio= DT=ms S/D= IVRT= Other Findings Pericardiu m: normal Pleural Effusion: none Pulmonary Arteries: normal Pulmonary Venous Flow: blunted (decreased ) systolic flow Anesthesi a Informatio n Performed Personally Anesthesio logist: ARIADNE COVARRUBIAS Echocardio gram Comments: Post-proce dure: under-fill ed ventricula r chambers, good biventricu lar function with LVEF >60%, no RWMA's, valves functional ly and structural ly normal, no aortic dissection , no effusions seen. Pt tolerated procedure well - CHELE probe inserted and removed without difficulty . PA CATHETER Routine 11/12/2017 1:42 PM CDT Procedure Note - Ariadne Covarrubias MD - 11/12/2017 1:42 PM CDT PA catheter Performed by: MATTHEW MARQUIS Authorized by: ARIADNE COVARRUBIAS Patient Location: OR Start Time: 11/12/2017 1:19 PM End Time: 11/12/2017 1:25 PM Staff: Anesthesio logist: ARIADNE COVARRUBIAS Other Staff: VALERIA SZYMANSKI Performed by: Other staff and anesthesio logist Preprocedu re: patient identified , IV checked, site and side verified, risks and benefits discussed, procedure verified, surgical consent complete, patient position confirmed, monitors and equipment checked and pre-op evaluation complete MSBT: antiseptic used, all elements of maximal sterile barrier technique followed, hand hygiene performed, cap/gown used by other personnel and solutions labeled Procedure details: PA Catheter Type: MIXER OPERATOR VACUUM PAN SALT PA Catheter Size: 9 PA Catheter Side: Right PA Catheter Site: Internal jugular PA Catheter secured at: 48 cm PA Catheter placed: PA Catheter placed through a second separate venous access point PA Catheter placed: PA Catheter placed without difficulty Waveform: PA Catheter wave confirmed Ports flushed: All ports flushed pre-proced ure Balloon checked: Balloon checked prior to insertion Post-proc edure: No arrhythmia : No arrhythmia s noted Patient tolerance: Patient tolerated the procedure well with no immediate complicati ons CENTRAL LINE Routine 11/12/2017 1:38 PM CDT Procedure Note - Ariadne Covarrubias MD - 11/12/2017 1:38 PM CDT Central line Performed by: MATTHEW MARQUIS Authorized by: ARIADNE COVARRUBIAS Patient Location: OR Start Time: 11/12/2017 1:14 PM End Time: 11/12/2017 1:19 PM Staff: Anesthesio logist: ARIADNE COVARRUBIAS Other Staff: VALERIA SZYMANSKI Performed by: Other staff and anesthesio logist Preprocedu re:patient identified , IV checked, site and side verified, risks and benefits discussed, procedure verified, surgical consent complete, patient position confirmed, monitors and equipment checked and pre-op evaluation complete MSBT: antiseptic used during central venous catheter insertion, all elements of maximal sterile barrier technique followed, hand hygiene performed prior to central venous catheter insertion, cap/gown used by other personnel during central venous catheter insertion, solutions labeled and all ports not used during insertion clamped Indication s: Indication s: Vascular access Anesthesia : Anesthesia : General Procedure details: Patient position: Supine Catheter Type: Triple lumen Catheter Size: 9 Fr Catheter Site: internal jugular vein Catheter site laterality : Right Pre-proced ure: Landmarks identified Ultrasound guidance used: Yes Ultrasound image saved: No Number of attempts: 1 Successful placement: Yes Guidewire removal: Guidewire removal is confirmed Guidewire removal witnessed by: MATTHEW MARQUIS Post-proce dure: Post-proce dure: line sutured, sterile dressing applied per protocol and ports flushed with saline Post-proce dure: Blood cleaned with CHG and sterile caps on all hubs Assessment : Blood return through all ports and free fluid flow Patient tolerance: Patient tolerated the procedure well with no immediate complicati ons ARTERIAL LINE Routine 11/12/2017 1:36 PM CDT Procedure Note - Airadne Covarrubias MD - 11/12/2017 1:36 PM CDT Arterial line Performed by: MATTHEW MARQUIS Authorized by: ARIADNE COVARRUBIAS Patient Location: Pre-op Start Time: 11/12/2017 1:01 PM End Time: 11/12/2017 1:02 PM Staff: Anesthesio logist: ARIADNE COVARRUBIAS Performed by: Resident/C KEVAN Pre-proced ure: patient identified , IV checked, site and side verified, risks and benefits discussed, procedure verified, surgical consent complete, patient position confirmed, monitors and equipment checked and pre-op evaluation complete MSBT: antiseptic used, all elements of maximal sterile barrier technique followed, hand hygiene performed, cap/gown used by other personnel and solutions labeled Indication s: Indication s: multiple ABGs and hemodynami c monitoring Anesthesia : Anesthesia : Local infiltrati on Procedure Details: Arterial Line placement: Placed post induction Line placement site: Brachial Line placement side: Left Arterial line gauge: 20 G Number of attempts: 1 Ultrasound guidance used: No Post-proce dure: Post-proce dure: Sterile dressing applied and line sutured Post procedure circulatio n, sensation, movement: Normal Patient tolerance: Patient tolerated the procedure well with no immediate complicati ons Notes: Attempted right radial access in pre op with US. Atery is very small, poorly visualized . Accessed once but unable to thread cath. Elect brachial to left NM AN ELECTIVE Routine 11/12/2017 ENDOTRACHEAL AIRWAY 1:35 PM CDT Procedure Note - Ariadne Covarrubias MD - 11/12/2017 1:35 PM CDT Airway Date/Time: 11/12/2017 1:03 PM Performed by: MATTHEW MARQUIS Authorized by: ARIADNE COVARRUBIAS Location: OR Urgency: Elective Difficult Airway: No Anesthesio logist: ARIADNE COVARRUBIAS Resident/C KEVAN/AA: MATTHEW MARQUIS Other Anesthesia Staff: VALERIA SZYMANSKI Performed by: other anesthesia staff Preoxygena maurisio with 100% O2: Yes C-spine Precaution s Maintained Throughout : Yes Mask Ventilatio n: Easy mask Final Airway Type: Endotrache al airway Final Endotrache al Airway: ETT Cuffed: Yes Technique Used: Direct laryngosco py Insertion Site: Oral Blade Type: Romano Laryngosco pe Blade/Vide olaryngosc ope Blade Size: 2 ETT Size (mm): 8.0 Cuff at minimum occlusion pressure: Yes Measured from: Lips ETT to Lips (cm): 21 Placement Verified by: CO2 detection, direct visualizat ion and equal breath sounds Laryngosco pic view: Grade I - full view of glottis Rapid Sequence Induction (RSI): No Modified RSI: No Number of Attempts at Approach: 1 MAGNESIUM LEVEL STAT 11/12/2017 1:30 PM CDT IONIZED CALCIUM, ARTERIAL STAT 11/12/2017 1:30 PM CDT HEMOGLOBIN, SYRINGE STAT 11/12/2017 1:30 PM CDT GLUCOSE LEVEL, SYRINGE STAT 11/12/2017 1:30 PM CDT POTASSIUM, SYRINGE STAT 11/12/2017 1:30 PM CDT SODIUM LEVEL, SYRINGE STAT 11/12/2017 1:30 PM CDT ARTERIAL BLOOD GAS, STAT 11/12/2017 CORRECTED 1:30 PM CDT POC GLUCOSE Routine 11/12/2017 12:07 PM CDT XR CHEST 2 VW Routine 11/07/2017 Preop testing 1:45 PM CDT URINE CULTURE Routine 11/07/2017 1:26 PM CDT SPIROMETRY Routine 11/07/2017 Preop testing 1:02 PM CDT ECG PRE/POST OP Routine 11/07/2017 Preop testing 12:29 PM CDT PREPARE RBC Routine 11/07/2017 12:05 PM CDT ZZESTIMATED GFR Routine 11/07/2017 12:05 PM CDT URINALYSIS SCREEN AND Routine 11/07/2017 Preop testing MICROSCOPY, WITH REFLEX 12:05 PM CDT TO CULTURE HEMOGLOBIN A1C Routine 11/07/2017 Preop testing 12:05 PM CDT COMPREHENSIVE METABOLIC Routine 11/07/2017 Preop testing PANEL 12:05 PM CDT TYPE AND SCREEN Routine 11/07/2017 Preop testing 12:05 PM CDT PROTHROMBIN TIME WITH INR Routine 11/07/2017 Preop testing 12:05 PM CDT PARTIAL THROMBOPLASTIN Routine 11/07/2017 Preop testing TIME (PTT) 12:05 PM CDT HC COMPLETE BLD COUNT Routine 11/07/2017 Preop testing W/AUTO DIFF 12:05 PM CDT VITAMIN B12 LEVEL Routine 11/07/2017 Preop testing 12:04 PM CDT FERRITIN LEVEL Routine 11/07/2017 Preop testing 12:04 PM CDT TOTAL IRON BINDING Routine 11/07/2017 Preop testing CAPACITY 12:04 PM CDT after 10/16/2017 Results * POC glucose (11/17/2017 12:27 PM CDT) Only the most recent of 43 results within the time period is included. Pathologist [facility] POC glucose 289 (H) 65 - 99 mg/dL [facility] DEPARTMENT Comment: OF PATHOLOGY Meter ID: [id number] AND GENOMIC Php Web Developer: Arron Bird MEDICINE Specimen Performing Organization Address City/State/Zipcode Phone Number [facility] DEPARTMENT OF [address] [place] [address] PATHOLOGY AND GENOMIC MEDICINE * CBC with platelet and differential (11/17/2017 4:45 AM CDT) Only the most recent of 4 results within the time period is included. WBC 9.33 4.50 - 11.00 k/uL [facility] DEPARTMENT OF PATHOLOGY AND GENOMIC MEDICINE RBC 3.34 (L) 4.40 - 6.00 m/uL [facility] DEPARTMENT OF PATHOLOGY AND GENOMIC MEDICINE HGB 8.7 (L) 14.0 - 18.0 g/dL [facility] DEPARTMENT OF PATHOLOGY AND GENOMIC MEDICINE HCT 26.6 (L) 41.0 - 51.0 % [facility] DEPARTMENT OF PATHOLOGY AND GENOMIC MEDICINE MCV 79.6 (L) 82.0 - 100.0 fL [facility] DEPARTMENT OF PATHOLOGY AND GENOMIC MEDICINE MCH 26.0 (L) 27.0 - 34.0 pg [facility] DEPARTMENT OF PATHOLOGY AND GENOMIC MEDICINE MCHC 32.7 31.0 - 37.0 g/dL [facility] DEPARTMENT OF PATHOLOGY AND GENOMIC MEDICINE RDW - SD 50.1 37.0 - 55.0 fL [facility] DEPARTMENT OF PATHOLOGY AND GENOMIC MEDICINE MPV 9.7 8.8 - 13.2 fL [facility] DEPARTMENT OF PATHOLOGY AND GENOMIC MEDICINE Platelet count 209 150 - 400 k/uL [facility] DEPARTMENT OF PATHOLOGY AND GENOMIC MEDICINE Nucleated RBC 0.00 /100 WBC [facility] DEPARTMENT OF PATHOLOGY AND GENOMIC MEDICINE Neutrophils 69.4 (H) 39.0 - 69.0 % [facility] DEPARTMENT OF PATHOLOGY AND GENOMIC MEDICINE Lymphocytes 14.5 (L) 25.0 - 45.0 % [facility] DEPARTMENT OF PATHOLOGY AND GENOMIC MEDICINE Monocytes 12.5 (H) 0.0 - 10.0 % [facility] DEPARTMENT OF PATHOLOGY AND GENOMIC MEDICINE Eosinophils 2.8 0.0 - 5.0 % [facility] DEPARTMENT OF PATHOLOGY AND GENOMIC MEDICINE Basophils 0.4 0.0 - 1.0 % [facility] DEPARTMENT OF PATHOLOGY AND GENOMIC MEDICINE Immature 0.4Comment: "Immature 0.0 - 1.0 % [facility] [facility] DE[facility] granulocytes granulocytes" (promyelocytes, OF PATHOLOGY myelocytes, metamyelocytes) AND GENOMIC MEDICINE Specimen Blood Performing Organization Address City/State/Zipcode Phone Number [facility] DEPARTMENT OF [address] [place] [address] PATHOLOGY AND GENOMIC MEDICINE * Estimated GFR (11/17/2017 4:00 AM CDT) Only the most recent of 7 results within the time period is included. GFR Non Af Amer >90 mL/min/1.73 m2 [facility] DEPARTMENT OF PATHOLOGY AND GENOMIC MEDICINE GFR Af Amer >90 mL/min/1.73 m2 [facility] DEPARTMENT Comment: OF PATHOLOGY Chronic kidney disease: <60 AND GENOMIC mL/min/1.73m2 MEDICINE Kidney failure: <15 mL/min/1.73m2 The estimated GFR is calculated from the IDMS-traceable Modification of Diet in Renal Disease Equation. The accuracy of the calculation is poor when the creatinine is normal. Calculated values >90 mL/min/1.73m2 are not reported. This equation has not been validated in children (<18 years), women, the elderly (>70 years), or ethnic groups other than Caucasians and Americans. Specimen Plasma specimen Performing Organization Address City/[facility] [place] [address] PATHOLOGY [facility] * Magnesium level (11/17/2017 4:00 AM CDT) Only the most recent of 8 results within the time period is included. [facility] Magnesium 1.8 1.6 - 2.4 mg/dL [facility] PATHOLOGY AND GENOMIC MEDICINE Specimen Plasma specimen Performing Organization Address City/[facility] [place] [address] PATHOLOGY [facility] * Basic metabolic panel (11/17/2017 4:00 AM CDT) Only the most recent of 6 results within the time period is included. Pathologist [facility] Sodium 133 (L) 135 - 148 mEq/L [facility] DEPARTMENT OF PATHOLOGY AND GENOMIC MEDICINE Potassium 3.8 3.5 - 5.0 mEq/L [facility] DEPARTMENT OF PATHOLOGY AND GENOMIC MEDICINE Chloride 95 (L) 98 - 112 mEq/L [facility] DEPARTMENT OF PATHOLOGY AND GENOMIC MEDICINE CO2 26 24 - 31 mEq/L [facility] DEPARTMENT OF PATHOLOGY AND GENOMIC MEDICINE Anion gap 12@ANIO 7 - 15 mEq/L [facility] DEPARTMENT OF PATHOLOGY AND GENOMIC MEDICINE BUN 13 8 - 23 mg/dL [facility] DEPARTMENT OF PATHOLOGY AND GENOMIC MEDICINE Creatinine 0.6 (L) 0.7 - 1.2 mg/dL [facility] DEPARTMENT OF PATHOLOGY AND GENOMIC MEDICINE Glucose 95 65 - 99 mg/dL [facility] DEPARTMENT OF PATHOLOGY AND GENOMIC MEDICINE Calcium 8.5 (L) 8.8 - 10.2 mg/dL [facility] DEPARTMENT OF PATHOLOGY AND GENOMIC MEDICINE Specimen Plasma specimen Performing Organization Address [facility] [place] [address] PATHOLOGY AND GENOMIC MEDICINE * XR Chest 1 Vw Portable (11/16/2017 1:34 PM CDT) Only the most recent of 4 results within the time period is included. Specimen Narrative Performed At EXAMINATION:XR CHEST 1 [facility] CLINICAL H[facility]ORY:Shortness of breath COMPARISON:November 13, 2017 IMPRESSION: Changes related to midline sternotomy are noted.There is thoracic scoliosis. Heart size is the upper is normal.Pulmonary vessels are congested bilaterally with some minimal interstitial infiltrates.There is blunting of the costophrenic sulcus and atelectasis at the left lung base.There appear to be subacute left rib fractures with callus formation. [facility]-[id number] Procedure Note Hm Interface, Radiology Results Incoming - 11/16/2017 1:53 PM CDT EXAMINATION: XR CHEST 1 VW PORTABLE CLINICAL HISTORY: Shortness of breath COMPARISON: November 13, 2017 IMPRESSION: Changes related to midline sternotomy are noted. There is thoracic scoliosis. Heart size is the upper is normal. Pulmonary vessels are congested bilaterally with some minimal interstitial infiltrates. There is blunting of the costophrenic sulcus and atelectasis at the left lung base. There appear to be subacute left rib fractures with callus formation. [facility]-[id number] Performing Organization Address City/[facility]/Zipcode Phone Number [place] [phone] [place] [address] * CBC hemogram (11/15/2017 3:03 AM CDT) Only the most recent of 3 results within the time period is included. WBC 12.75 (H) 4.50 - 11.00 k/uL [facility] DEPARTMENT OF PATHOLOGY AND GENOMIC MEDICINE RBC 3.38 (L) 4.40 - 6.00 m/uL [facility] DEPARTMENT OF PATHOLOGY AND GENOMIC MEDICINE HGB 8.7 (L) 14.0 - 18.0 g/dL [facility] DEPARTMENT OF PATHOLOGY AND GENOMIC MEDICINE HCT 27.3 (L) 41.0 - 51.0 % [facility] DEPARTMENT OF PATHOLOGY AND GENOMIC MEDICINE MCV 80.8 (L) 82.0 - 100.0 fL [facility] DEPARTMENT OF PATHOLOGY AND GENOMIC MEDICINE MCH 25.7 (L) 27.0 - 34.0 pg [facility] DEPARTMENT OF PATHOLOGY AND GENOMIC MEDICINE MCHC 31.9 31.0 - 37.0 g/dL [facility] DEPARTMENT OF PATHOLOGY AND GENOMIC MEDICINE RDW - SD 50.6 37.0 - 55.0 fL [facility] DEPARTMENT OF PATHOLOGY AND GENOMIC MEDICINE MPV 9.8 8.8 - 13.2 fL [facility] DEPARTMENT OF PATHOLOGY AND GENOMIC MEDICINE Platelet count 120 (L) 150 - 400 k/uL [facility] DEPARTMENT OF PATHOLOGY AND GENOMIC MEDICINE Nucleated RBC 0.00 /100 WBC [facility] DEPARTMENT OF PATHOLOGY AND GENOMIC MEDICINE Specimen Blood Performing Organization Address City/[facility]/Zipcode Phone Number [address] [address] PATHOLOGY AND GENOMIC MEDICINE * Phosphorus level (11/15/2017 12:00 AM CDT) Only the most recent of 4 results within the time period is included. Phosphorus 2.2 (L) 2.4 - 4.5 mg/dL [facility] DEPARTMENT OF PATHOLOGY AND GENOMIC MEDICINE Specimen Plasma specimen Performing Organization Address [facility] [place] [address] [facility] MEDICINE * Ionized calcium (11/15/2017 12:00 AM CDT) Only the most recent of 3 results within the time period is included. pH 7.57 [facility] DEPARTMENT OF PATHOLOGY AND GENOMIC MEDICINE Ionized calcium 1.06 (L) 1.11 - 1.32 mmol/L [facility] PATHOLOGY AND GENOMIC MEDICINE Specimen Plasma specimen Performing Organization Address [facility] Phone Number [facility] [place] [address] [facility] MEDICINE * ECG 12 lead (11/14/2017 6:14 AM CDT) Only the most recent of 3 results within the time period is included. Ventricular 82 [facility] MUSE rate Atrial rate 82 H MUSE NM interval 174 [facility] QRSD interval 82 [facility] MUSE QT interval 382 [facility] MUSE QTC interval 446 [facility] P axis 1 32 [facility] QRS axis 1 33 [facility] MUSE T wave axis 32 [facility] MUSE EKG impression Normal sinus rhythm-Possible [facility] MUSE Inferior infarct , age undetermined-Abnormal ECG-In automated comparison with ECG of 13-NOV-2017 05:44,-No significant change was found- Specimen Performing Organization Address City/[facility] Phone Number [facility] MUSE [address] [place] [address] * Potassium level (11/13/2017 4:40 PM CDT) Potassium 4.0 3.5 - 5.0 mEq/L [facility] DEPARTMENT PATHOLOGY AND GENOMIC MEDICINE Specimen Plasma specimen Performing Organization Address [facility] [place] [address] [facility] MEDICINE * O2 saturation, venous (11/13/2017 4:00 AM CDT) [facility] Hemoglobin, 9.9 (L) 14.0 - 18.0 g/dL [facility] DEPARTMENT venous, syringe OF PATHOLOGY AND GENOMIC MEDICINE O2 saturation, 73 (H) 40 - 70 % [facility] DEPARTMENT venous OF PATHOLOGY AND GENOMIC MEDICINE Specimen Blood Performing Organization Address City/[facility] Phone Number [facility] [place] [address] PATHOLOGY AND GENOMIC MEDICINE * Ionized calcium, arterial (11/12/2017 8:30 PM CDT) Only the most recent of 7 results within the time period is included. [facility] Ionized 1.18 1.11 - 1.32 mmol/L [facility] DEPARTMENT calcium, OF PATHOLOGY arterial AND GENOMIC MEDICINE Specimen Blood Performing Organization Address [facility] Phone Number [facility] [address] PATHOLOGY AND GENOMIC MEDICINE * Partial thromboplastin time, activated (11/12/2017 8:30 PM CDT) Only the most recent of 2 results within the time period is included. [facility] PTT 30.9 23.0 - 36.0 sec [facility] DEPARTMENT Comment: OF PATHOLOGY PTT therapeutic range for AND GENOMIC unfractionated heparin is MEDICINE 61.0-112.0 seconds which corresponds to Anti-Xa 0.3-0.7 U/ml. Specimen Blood Performing Organization Address [facility] Phone Number [facility] [address] PATHOLOGY AND [employer] MEDICINE * Prothrombin time with INR (11/12/2017 8:30 PM CDT) Only the most recent of 3 results within the time period is included. [facility] Prothrombin 20.0 (H) 12.0 - 15.0 sec [facility] DEPARTMENT time OF PATHOLOGY AND GENOMIC MEDICINE INR 1.7 [facility] DEPARTMENT Comment: OF PATHOLOGY The International Normalized AND GENOMIC Ratio (INR) is a therapeutic MEDICINE monitoring tool for patients who are stable on oral anticoagulant therapy. An INR of 2.0-3.0 is suggested for deep vein thrombosis/pulmonary embolism. Specimen Blood Performing Organization Address [facility] Phone Number [facility] [address] PATHOLOGY AND [employer] MEDICINE * Arterial blood gas (11/12/2017 8:30 PM CDT) pH, arterial 7.45 7.35 - 7.45 [facility] DEPARTMENT OF PATHOLOGY AND GENOMIC MEDICINE pCO2, arterial 31 (L) 35 - 45 mmHg [facility] DEPARTMENT OF PATHOLOGY AND GENOMIC MEDICINE pO2, arterial 206 (H) 80 - 90 mmHg [facility] DEPARTMENT OF PATHOLOGY AND GENOMIC MEDICINE Bicarbonate, 21.0 21.0 - 28.0 mmol/L [facility] DEPARTMENT arterial OF PATHOLOGY AND GENOMIC MEDICINE Base excess, -2 -2 - 2 mEq/L [facility] DEPARTMENT arterial OF PATHOLOGY AND GENOMIC MEDICINE O2 saturation, 99 95 - 100 % [facility] DEPARTMENT arterial OF PATHOLOGY AND GENOMIC MEDICINE Specimen Blood Performing Organization Address City/[facility] [place] [address] PATHOLOGY AND GENOMIC MEDICINE * Sodium level, syringe (11/12/2017 7:10 PM CDT) Only the most recent of 6 results within the time period is included. Sodium, syringe 135 135 - 148 mEq/L [facility] DEPARTMENT OF PATHOLOGY AND GENOMIC MEDICINE Specimen Blood Performing Organization Address City/[facility] [place] [address] PATHOLOGY AND GENOMIC MEDICINE * Potassium, syringe (11/12/2017 7:10 PM CDT) Only the most recent of 6 results within the time period is included. Potassium, 3.5 3.5 - 5.0 mEq/L [facility] DEPARTMENT syringe OF PATHOLOGY AND GENOMIC MEDICINE Specimen Blood Performing Organization Address City/[facility] [place] [address] PATHOLOGY AND GENOMIC MEDICINE * Hemoglobin, syringe (11/12/2017 7:10 PM CDT) Only the most recent of 6 results within the time period is included. Hemoglobin, 9.5 (L) 14.0 - 18.0 g/dL [facility] DEPARTMENT syringe OF PATHOLOGY AND GENOMIC MEDICINE Specimen Blood Performing Organization Address City/[facility] [place] [address] PATHOLOGY AND GENOMIC MEDICINE * Glucose level, syringe (11/12/2017 7:10 PM CDT) Only the most recent of 6 results within the time period is included. Glucose, 209 (H) 65 - 99 mg/dL [facility] DEPARTMENT syringe OF PATHOLOGY AND GENOMIC MEDICINE Specimen Blood Performing Organization Address [facility] Phone Number [facility] [place] [address] PATHOLOGY AND GENOMIC MEDICINE * Arterial blood gas, corrected (11/12/2017 7:10 PM CDT) Only the most recent of 6 results within the time period is included. pH, arterial 7.42 7.35 - 7.45 [facility] DEPARTMENT OF PATHOLOGY AND GENOMIC MEDICINE pCO2, arterial 35 35 - 45 mmHg [facility] DEPARTMENT OF PATHOLOGY AND GENOMIC MEDICINE pO2, arterial 366 (H) 80 - 90 mmHg [facility] DEPARTMENT OF PATHOLOGY AND GENOMIC MEDICINE Temperature, 37.0 Degrees C [facility] DEPARTMENT [employer] OF PATHOLOGY AND GENOMIC MEDICINE O2 saturation, 100 95 - 100 % [facility] DEPARTMENT arterial OF PATHOLOGY AND GENOMIC MEDICINE pH, arterial 7.42 [facility] DEPARTMENT corrected OF PATHOLOGY AND GENOMIC MEDICINE pCO2, arterial 35 mmHg [facility] DEPARTMENT corrected OF PATHOLOGY AND GENOMIC MEDICINE pO2, arterial 366 mmHg [facility] DEPARTMENT corrected OF PATHOLOGY AND GENOMIC MEDICINE Base excess, -2 -2 - 2 mEq/L [facility] DEPARTMENT arterial OF PATHOLOGY AND GENOMIC MEDICINE Specimen Blood Performing Organization Address [facility] Phone Number [facility] [place] [address] PATHOLOGY AND GENOMIC MEDICINE * Lactic acid, syringe (11/12/2017 6:32 PM CDT) Only the most recent of 2 results within the time period is included. Lactic acid, 2.0 0.5 - 2.2 mmol/L [facility] DEPARTMENT syringe OF PATHOLOGY AND GENOMIC MEDICINE Specimen Blood Performing Organization Address [facility] Phone Number [facility] [place] [address] PATHOLOGY AND GENOMIC MEDICINE * Fibrinogen (11/12/2017 6:32 PM CDT) Fibrinogen 184 (L) 200 - 450 mg/dL [facility] DEPARTMENT OF PATHOLOGY AND GENOMIC MEDICINE Specimen Blood Performing Organization Address [facility] [place] [address] PATHOLOGY AND GENOMIC MEDICINE * Platelet count (11/12/2017 6:32 PM CDT) Platelet count 96 (L) 150 - 400 k/uL [facility] DEPARTMENT OF PATHOLOGY AND GENOMIC MEDICINE Specimen Performing Organization Address [facility] Phone Number [facility] DEPARTMENT OF [address] [place] [address] PATHOLOGY AND GENOMIC MEDICINE * XR Chest 2 Vw (11/07/2017 1:45 PM CDT) Specimen Narrative Performed At EXAMINATION:XR CHEST 2 [facility] CL[facility]ICAL [facility]:77 years Male Z01.818 Encounter for other preprocedural examination, PREOP OPC COMPARISON:None IMPRESSION: 1.Heart size and central vasculature are normal. There are calcifications in the aortic arch. 2.There is blunting of the left costophrenic angle consistent with small effusion versus pleural thickening. There is some adjacent left basilar atelectasis and/or scarring. The right lung is grossly clear. 3.The bones are demineralized with degenerative changes in the spine. There are multiple old left-sided rib fractures. [facility]-[id number] Procedure Note Interface, Radiology Results Incoming - 11/07/2017 1:53 PM CDT EXAMINATION: XR CHEST 2 VW CLINICAL HISTORY:77 years Male Z01.818 Encounter for other preprocedural examination, PREOP OPC COMPARISON: None IMPRESSION: 1. Heart size and central vasculature are normal. There are calcifications in the aortic arch. 2. There is blunting of the left costophrenic angle consistent with small effusion versus pleural thickening. There is some adjacent left basilar atelectasis and/or scarring. The right lung is grossly clear. 3. The bones are demineralized with degenerative changes in the spine. There are multiple old left-sided rib fractures. [facility]-[id number] Performing Organization Address City/[facility]/Zipcode Phone Number [facility] [address] [place] [address] * Urine culture (11/07/2017 1:26 PM CDT) Urine culture SEE COMMENTComment: [facility] DEPARTMENT Bacteriuria screen negative. OF PATHOLOGY AND GENOMIC MEDICINE Specimen Performing Organization Address City/[facility]/Zipcode Phone Number [facility] DEPARTMENT OF [address] [place] [phone] PATHOLOGY AND GENOMIC MEDICINE * Spirometry (11/07/2017 1:02 PM CDT) FEV1 Pre 2.21 1.99 - 3.40 L [facility] FEV1/FVC % Pre 86.17 63.66 - 81.85 % [facility] FVC Pre 2.57 2.73 - 4.39 L [facility] PEF Pre 5.50 4.15 - 9.02 L/s [facility] FEF 25-75% Pre 2.61 0.40 - 3.56 L/s [facility] FEV1 Predicted 2.69 [facility] FEV1 LLN 1.99 [facility] FEV1 % Pre of 82.3 % [facility] Predicted FVC Predicted 3.56 [facility] FVC LLN 2.73 [facility] FVC % Pre of 72.2 % [facility] Predicted FEV1/FVC % 73 [facility] Predicted FEV1/FVC % LLN 64 [facility] FEV1/FVC % Pre 118.4 % [facility] of Predicted FEF 25-75% 1.98 [facility] Predicted FEF 25-75% LLN 0.40 [facility] FEF 25-75% % 132.1 % [facility] Pre of Predicted PEF Predicted 6.59 [facility] PEF LLN 4.15 [facility] PEF % Pre of 83.4 % [facility] Predicted VC Predicted 3.56 [facility] VC LLN 2.73 [facility] ERV Predicted 0.87 [facility] ERV LLN 0.87 [facility] FRCpl % 3.60 [facility] Predicted FRCpl % LLN 2.62 [facility] IC Predicted 2.65 [facility] IC LLN 2.65 [facility] RV Predicted 2.74 [facility] RV LLN 2.06 [facility] RV % TLC 45 [facility] Predicted RV % TLC LLN 36 [facility] TLC Predicted 6.52 [facility] TLC LLN 5.37 [facility] Raw Predicted 3.06 [facility] Raw LLN 3.06 [facility] R0.5IN 3.06 [facility] Predicted R0.5IN LLN 3.06 [facility] sGaw Predicted 0.08 [facility] sGaw LLN 0.08 [facility] DLCO Predicted 22.83 [facility] DLCO LLN 14.87 [facility] DLCOc Predicted 22.83 [facility] DLCOc LLN 14.87 [facility] DL/VA Predicted 3.83 [facility] DL/VA LLN 2.63 [facility] KCOc SB 3.83 [facility] Predicted KCOc SB LLN 2.63 [facility] VA SB Predicted 6.24 [facility] VA SB LLN 4.88 [facility] MIP Predicted 76.76 [facility] MIP LLN 21.93 [facility] MEP Predicted 128.35 [facility] MEP LLN 85.58 [facility] MVV Predicted 101 [facility] MVV LLN 86 [facility] Specimen Performing Organization Address City/[facility] Phone Number [facility] [address] [place] [address] * ECG Pre/Post Op (11/07/2017 12:29 PM CDT) Ventricular 69 [facility] MUSE rate Atrial rate 69 [facility] MUSE NM interval 212 [facility] MUSE QRSD interval 82 [facility] MUSE QT [facility] 386 [facility] MUSE QTC interval 413 [facility] MUSE P axis 1 77 [facility] MUSE QRS axis 1 42 [facility] MUSE T wave axis 38 [facility] MUSE EKG impression Sinus rhythm with 1st degree [facility] MUSE AV block-Otherwise normal ECG-No previous ECGs available- Specimen Performing Organization Address City/[facility] Phone Number [facility] MUSE [address] [place] [address] * Urinalysis screen and microscopy, with reflex to culture (11/07/2017 12:05 PM CDT) Specimen site Clean catch [facility] DEPARTMENT OF PATHOLOGY AND GENOMIC MEDICINE Color, UA Yellow [facility] DEPARTMENT OF PATHOLOGY AND GENOMIC MEDICINE Appearance, UA Clear [facility] DEPARTMENT OF PATHOLOGY AND GENOMIC MEDICINE Specific 1.014 1.001 - 1.035 [facility] DEPARTMENT gravity, OF PATHOLOGY AND GENOMIC MEDICINE pH, UA 6.0 5.0 - 8.5 [facility] DEPARTMENT OF PATHOLOGY AND GENOMIC MEDICINE Protein, UA Negative Negative [facility] DEPARTMENT OF PATHOLOGY AND GENOMIC MEDICINE Glucose, UA Negative Negative [facility] DEPARTMENT OF PATHOLOGY AND GENOMIC MEDICINE Ketones, UA Trace (A) Negative [facility] DEPARTMENT OF PATHOLOGY AND GENOMIC MEDICINE Bilirubin, UA Negative Negative [facility] DEPARTMENT OF PATHOLOGY AND GENOMIC MEDICINE Blood, UA Negative Negative [facility] DEPARTMENT OF PATHOLOGY AND GENOMIC MEDICINE Nitrite, UA Negative Negative [facility] DEPARTMENT OF PATHOLOGY AND GENOMIC MEDICINE Urobilinogen, <2.0 <2.0 [facility] DEPARTMENT UA OF PATHOLOGY AND GENOMIC MEDICINE Leukocyte Negative Negative [facility] DEPARTMENT esterase, UA OF PATHOLOGY AND GENOMIC MEDICINE WBC, UA 1 0 - 1 /HPF [facility] DEPARTMENT OF PATHOLOGY AND GENOMIC MEDICINE RBC, UA 1 0 - 5 /HPF [facility] DEPARTMENT OF PATHOLOGY AND GENOMIC MEDICINE Bacteria, UA Few None seen [facility] DEPARTMENT OF PATHOLOGY AND GENOMIC MEDICINE Yeast, UA None seen [facility] DEPARTMENT OF PATHOLOGY AND GENOMIC MEDICINE Yeast with None seen [facility] DEPARTMENT pseudohyphae, OF PATHOLOGY UA AND GENOMIC MEDICINE Specimen Urine Performing Organization Address City/State/Zipcode Phone Number [facility] DEPARTMENT OF [address] [place] [address] PATHOLOGY AND GENOMIC MEDICINE * Prepare RBC (11/07/2017 12:05 PM CDT) Product name Red Blood Cells -1, Leukored [facility] DEPARTMENT OF PATHOLOGY AND GENOMIC MEDICINE Unit number [id number] [facility] DEPARTMENT OF PATHOLOGY AND GENOMIC MEDICINE Product code [id number] [facility] DEPARTMENT OF PATHOLOGY AND GENOMIC MEDICINE Dispense status Transfused [facility] DEPARTMENT OF PATHOLOGY AND GENOMIC MEDICINE Blood [id number] [facility] DEPARTMENT expiration date OF PATHOLOGY AND GENOMIC MEDICINE Blood type code 6200 [facility] DEPARTMENT OF PATHOLOGY AND GENOMIC MEDICINE Blood type A POSITIVE [facility] DEPARTMENT OF PATHOLOGY AND GENOMIC MEDICINE Product name Red Blood Cells -1, Leukored [facility] DEPARTMENT OF PATHOLOGY AND GENOMIC MEDICINE Unit number [id number] [facility] DEPARTMENT OF PATHOLOGY AND GENOMIC MEDICINE Product code [id number] [facility] DEPARTMENT OF PATHOLOGY AND GENOMIC MEDICINE Dispense status Transfused [facility] DEPARTMENT OF PATHOLOGY AND GENOMIC MEDICINE Blood [id number] [facility] DEPARTMENT expiration date OF PATHOLOGY AND GENOMIC MEDICINE Blood type code 6200 [facility] DEPARTMENT OF PATHOLOGY AND GENOMIC MEDICINE Blood type A POSITIVE [facility] DEPARTMENT OF PATHOLOGY AND GENOMIC MEDICINE Product name Red Blood Cells -1, Leukored [facility] DEPARTMENT OF PATHOLOGY AND GENOMIC MEDICINE Unit number [id number] [facility] DEPARTMENT OF PATHOLOGY AND GENOMIC MEDICINE Product code [id number] [facility] DEPARTMENT OF PATHOLOGY AND GENOMIC MEDICINE Dispense status Returned to BB not transfused [facility] DEPARTMENT OF PATHOLOGY AND GENOMIC MEDICINE Blood [id number] [facility] DEPARTMENT expiration date OF PATHOLOGY AND GENOMIC MEDICINE Blood type code 6200 [facility] DEPARTMENT OF PATHOLOGY AND GENOMIC MEDICINE Blood type A POSITIVE [facility] DEPARTMENT OF PATHOLOGY AND GENOMIC MEDICINE Product name Red Blood Cells -1, Leukored [facility] DEPARTMENT OF PATHOLOGY AND GENOMIC MEDICINE Unit number [id number] [facility] DEPARTMENT OF PATHOLOGY AND GENOMIC MEDICINE Product code [id number] [facility] DEPARTMENT OF PATHOLOGY AND GENOMIC MEDICINE Dispense status Returned to BB not transfused [facility] DEPARTMENT OF PATHOLOGY AND GENOMIC MEDICINE Blood [id number] [facility] DEPARTMENT expiration date OF PATHOLOGY AND GENOMIC MEDICINE Blood type code 6200 [facility] DEPARTMENT OF PATHOLOGY AND GENOMIC MEDICINE Blood type A POSITIVE [facility] DEPARTMENT OF PATHOLOGY AND GENOMIC MEDICINE Specimen Performing Organization Address City/[facility]/Zipcode Phone Number [facility] DEPARTMENT [address] [address] PATHOLOGY AND GENOMIC MEDICINE * Type and screen (11/07/2017 12:05 PM CDT) ABO grouping A [facility] DEPARTMENT OF PATHOLOGY AND GENOMIC MEDICINE Rh type POS [facility] DEPARTMENT OF PATHOLOGY AND GENOMIC MEDICINE Antibody screen NEG [facility] DEPARTMENT (gel) OF PATHOLOGY AND GENOMIC MEDICINE Specimen Blood Performing Organization Address City/State/Zipcode Phone Number [facility] DEPARTMENT OF [address] [place] [phone] PATHOLOGY AND GENOMIC MEDICINE * Hemoglobin A1c (11/07/2017 12:05 PM CDT) Pathologist [facility] Hemoglobin A1C 6.5 (H) 4.0 - 5.6 % [facility] DEPARTMENT Comment: OF PATHOLOGY HbA1c cutoffs for diagnosing AND GENOMIC diabetes: MEDICINE 4.0% - 5.6%=normal 5.7% - 6.4%=increased risk for diabetes (prediabetes) >=6.5%=diabetes Goals for glycemic control (ADA 2016) < 7.0%Target for non adults with diabetes. More or less stringent targets may be appropriate for individual patients. <7.5% Target for Children and adolescents with type 1 diabetes. Specimen Blood Performing Organization Address City/State/Zipcode Phone Number [facility] DEPARTMENT OF [address] [place] [address] PATHOLOGY AND GENOMIC MEDICINE * Comprehensive metabolic panel (11/07/2017 12:05 PM CDT) Sodium 131 (L) 135 - 148 mEq/L [facility] DEPARTMENT OF PATHOLOGY AND GENOMIC MEDICINE Potassium 5.4 (H) 3.5 - 5.0 mEq/L [facility] DEPARTMENT OF PATHOLOGY AND GENOMIC MEDICINE Chloride 92 (L) 98 - 112 mEq/L [facility] DEPARTMENT OF PATHOLOGY AND GENOMIC MEDICINE CO2 25 24 - 31 mEq/L [facility] DEPARTMENT OF PATHOLOGY AND GENOMIC MEDICINE Anion gap 14@ANIO 7 - 15 mEq/L [facility] DEPARTMENT OF PATHOLOGY AND GENOMIC MEDICINE BUN 19 8 - 23 mg/dL [facility] DEPARTMENT OF PATHOLOGY AND GENOMIC MEDICINE Creatinine 0.6 (L) 0.7 - 1.2 mg/dL [facility] DEPARTMENT OF PATHOLOGY AND GENOMIC MEDICINE Glucose 248 (H) 65 - 99 mg/dL [facility] DEPARTMENT OF PATHOLOGY AND GENOMIC MEDICINE Calcium 9.1 8.8 - 10.2 mg/dL [facility] DEPARTMENT OF PATHOLOGY AND GENOMIC MEDICINE Protein 8.1 6.3 - 8.3 g/dL [facility] DEPARTMENT Comment: OF PATHOLOGY [place] AND GENOMIC 4.6-7.0 g/dL MEDICINE 1 week 4.4-7.6 g/dL 7 months-1year 5.1-7.3 g/dL 1-2 years5.6-7 .5 g/dL >3 years6.0-8 .0 g/dL 18-150 6.3-8.3 g/dL Albumin 3.5 3.5 - 5.0 g/dL [facility] DEPARTMENT OF PATHOLOGY AND GENOMIC MEDICINE A/G ratio 0.8 0.7 - 3.8 [facility] DEPARTMENT OF PATHOLOGY AND GENOMIC MEDICINE Alkaline 63 40 - 129 U/L [facility] DEPARTMENT phosphatase OF PATHOLOGY AND GENOMIC MEDICINE AST 14 10 - 50 U/L [facility] DEPARTMENT OF PATHOLOGY AND GENOMIC MEDICINE ALT 8 5 - 50 U/L [facility] DEPARTMENT OF PATHOLOGY AND GENOMIC MEDICINE Total bilirubin <0.2 0.0 - 1.2 mg/dL [facility] DEPARTMENT OF PATHOLOGY AND GENOMIC MEDICINE Specimen Plasma specimen Performing Organization Address City/[facility] [address] PATHOLOGY AND GENOMIC MEDICINE * Total iron binding capacity (11/07/2017 12:04 PM CDT) Iron level 38 (L) 59 - 158 ug/dL [facility] DEPARTMENT OF PATHOLOGY AND GENOMIC MEDICINE Iron binding 362 200 - 400 ug/dL [facility] DEPARTMENT capacity OF PATHOLOGY AND GENOMIC MEDICINE % Saturation 10.5 (L) 20.0 - 40.0 % [facility] DEPARTMENT OF PATHOLOGY AND GENOMIC MEDICINE Specimen Plasma specimen Performing Organization Address City/[facility] [place] [address] PATHOLOGY AND [employer] MEDICINE * Ferritin level (11/07/2017 12:04 PM CDT) Ferritin level 26 (L) 30 - 400 ng/mL [facility] DEPARTMENT OF PATHOLOGY AND GENOMIC MEDICINE Specimen Plasma specimen Performing Organization Address City/[facility] Phone Number [facility] DEPARTMENT OF [address] [place] [address] PATHOLOGY AND GENOMIC MEDICINE * Vitamin B12 level (11/07/2017 12:04 PM CDT) Vitamin B12 839 211 - 946 pg/mL [facility] DEPARTMENT Comment: OF PATHOLOGY Significant overlap exists AND GENOMIC between normal and deficiency MEDICINE states. However, most patients with deficiencies will have Serum B12 <200 pg/mL. Specimen Serum Performing Organization Address City/State/Zipcode Phone Number [facility] DEPARTMENT OF [address] [place] [address] PATHOLOGY AND GENOMIC MEDICINE after 10/16/2017 Insurance Type Payer Benefit Subscriber ID Effective Phone Address Plan / Dates Group HMO [employer] C[employer] xxxxxxxxxxx [id number] [employer] resent NG O MCR ADV Advance Directives Patient has advance care planning documents on file. For more information, elvira hinson contact: Gen [place] [address] [place] [address]
[2018-10-17] MEDS ORDERED: LEVOTHYROXINE50 MCG PO (14:49)
[2018-10-17] MEDS ORDERED: FERROUS SULFAT325 MG PO (14:49)
[2018-10-17] MEDS ORDERED: LISINOPRIL5 MG PO (14:49)
[2018-10-17] MEDS ORDERED: METOPROLOL TART25 MG PO (14:49)
[2018-10-17] MEDS ORDERED: MACRODANTIN100 MG PO (14:49)
[2018-10-17 14:55] VITALS: BP 146/61
[2018-10-17] MEDS ORDERED: FENTANYL CITRATE/PF 100MCG/2 ML INJ ONE (17:10)
[2018-10-17] MEDS ORDERED: MIDAZOLAM HCL 2 MG/2 ML VIAL ONE (17:10)
[2018-10-17] MEDS ORDERED: LIDOCAINE HCL 2% LOCAL 20 ML VIAL ONE (17:11)
[2018-10-17] MEDS ORDERED: SODIUM CHLORIDE 0.9% 1000ML 1,000 ML ONE (17:11)
[2018-10-17] MEDS ORDERED: HEPARIN SOD/SOD CHLORIDE 2,000 ML ONE (17:11)
--- NOTE | 2018-10-17 19:50 | NUR ---
Patient came from [facility]. patient to be dc at 2030 as per written order from Dr. Fitzgerald
--- OUTSIDE RECORDS SUMMARY | 2018-10-17 19:51 | XMS REPORT | Clinical Summary ---
Author Author [facility] Address Unknown Phone Unavailable Care Team Providers Care Systems Testing Laboratory Technician Name Role Phone Asked, No Pcp PCP [...] Tmpry Cardiovasc N/A: N/A [employer] Streamline - [id number] [facility] - Implanted: 11/12/2017 (Quantity not Implants CARDIAC on file) SRGRY 02/27/2022 [id number] / / [id number] Drain Fluted Full Chnl Silicone Rnd Surgical N/A: N/A CR BARD Hubless 19fr 1/4in 6.3mm - Implants; [id number] Expanders; Implanted: 11/12/2017 (Quantity not Extenders; on file) Surgical Wires 02/27/2022 [id number] / / [id number] Drain Fluted Full Chnl Silicone Rnd Surgical N/A: N/A CR BARD Hubless 19fr 1/4in 6.3mm - Implants; [id number] Expanders; Implanted: 11/12/2017 (Quantity not Extenders; on file) Surgical Wires 05/27/2022 [id number] / / [id number] Mathews Perph Vasclr Ptfe 1.2x10cm Vascular N/A: N/A BARD 1.65mm - [id number] Graft PERIPHERAL Implanted: 11/12/2017 (Quantity not VASCULAR [...] Inferior: normal 16- Apical Septal: normal 17- Brandon: normal Valves Aortic Valve: Annulus normal. 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 Elect brachial to left NH AN ELECTIVE Routine 11/12/2017 ENDOTRACHEAL AIRWAY 1:35 PM CDT Procedure Note - Ariadne Covarrubias MD - 11/12/2017 1:35 PM CDT Airway Date/Time: 11/12/2017 1:03 PM Performed by: MATTHEW MARQUIS Authorized by: ARIADNE COVARRUBIAS Location: OR Urgency: Elective Difficult Airway: No Anesthesio logist: ARIADNE COVARRUBIAS Resident/C KEVAN/AA: MATTHEW MARUQIS Other Anesthesia Staff: VALERIA SZYMANSKI Performed by: [...] within the time period is included. Pathologist [facility] [place] POC glucose 289 (H) 65 - 99 mg/dL [facility] DEPARTMENT Comment: OF PATHOLOGY Meter ID: [id number] AND GENOMIC Evp Chief Exploration Officer: Arron Bird MEDICINE Specimen Performing Organization Address City/State/Zipcode Phone Number [facility] DEPARTMENT OF [address] [place] [address] PATHOLOGY AND GENOMIC MEDICINE * CBC with platelet and differential (11/17/2017 4:45 AM CDT) Only the most recent of 4 results within the time period is included. WBC 9.33 4.50 - 11.00 k/uL [facility] DEPARTMENT OF PATHOLOGY AND GENOMIC MEDICINE RBC 3.34 (L) 4.40 - 6.00 m/uL [facility] DEPARTMENT OF PATHOLOGY AND GENOMIC MEDICINE HGB 8.7 (L) 14.0 - 18.0 g/dL [facility] DEPARTMENT OF PATHOLOGY AND GENOMIC MEDICINE HCT 26.6 (L) 41.0 - 51.0 % [facility] DEPARTMENT OF PATHOLOGY AND GENOMIC MEDICINE MCV 79.6 (L) 82.0 - 100.0 fL [facility] DEPARTMENT OF PATHOLOGY AND GENOMIC MEDICINE MCH 26.0 (L) 27.0 - 34.0 pg [facility] DEPARTMENT OF PATHOLOGY AND GENOMIC MEDICINE MCHC 32.7 31.0 - 37.0 g/dL [facility] DEPARTMENT OF PATHOLOGY AND GENOMIC MEDICINE RDW - SD 50.1 37.0 - 55.0 fL [facility] DEPARTMENT OF PATHOLOGY AND GENOMIC MEDICINE MPV 9.7 8.8 - 13.2 fL [facility] DEPARTMENT OF PATHOLOGY AND GENOMIC MEDICINE Platelet count 209 150 - 400 k/uL [facility] DEPARTMENT OF PATHOLOGY AND GENOMIC MEDICINE Nucleated RBC 0.00 /100 WBC [facility] DEPARTMENT OF PATHOLOGY AND GENOMIC MEDICINE Neutrophils 69.4 (H) 39.0 - 69.0 % [facility] DEPARTMENT OF PATHOLOGY AND GENOMIC MEDICINE Lymphocytes 14.5 (L) 25.0 - 45.0 % [facility] DEPARTMENT OF PATHOLOGY AND GENOMIC MEDICINE Monocytes 12.5 (H) 0.0 - 10.0 % [facility] DEPARTMENT OF PATHOLOGY AND GENOMIC MEDICINE Eosinophils 2.8 0.0 - 5.0 % [facility] DEPARTMENT OF PATHOLOGY AND GENOMIC MEDICINE Basophils 0.4 0.0 - 1.0 % [facility] DEPARTMENT OF PATHOLOGY AND GENOMIC MEDICINE Immature 0.4Comment: "Immature 0.0 - 1.0 % [facility] DEPARTMENT granulocytes granulocytes" (promyelocytes, OF PATHOLOGY myelocytes, metamyelocytes) AND GENOMIC MEDICINE Specimen Blood Performing Organization Address City/State/Zipcode Phone Number [facility] DEPARTMENT OF [address] [place] [address] PATHOLOGY AND GENOMIC MEDICINE * Estimated GFR (11/17/2017 4:00 AM CDT) Only the most recent of 7 results within the time period is included. GFR Non Af Amer >90 mL/min/1.73 m2 [facility] DEPARTMENT OF PATHOLOGY AND GENOMIC MEDICINE GFR Af Amer >90 mL/min/1.73 m2 [facility] DEPARTMENT Comment: OF PATHOLOGY Chronic kidney disease: [...] Americans. Specimen Plasma specimen Performing Organization Address City/[facility] [place] [address] PATHOLOGY [facility] * Magnesium level (11/17/2017 4:00 AM CDT) Only the most recent of 8 results within the time period is included. [facility] Magnesium 1.8 1.6 - 2.4 mg/dL [facility] PATHOLOGY AND GENOMIC MEDICINE Specimen Plasma specimen Performing Organization Address City/[facility] [place] [address] PATHOLOGY [facility] * Basic metabolic panel (11/17/2017 4:00 AM CDT) Only the most recent of 6 results within the time period is included. Pathologist [facility] [place] Sodium 133 (L) 135 - 148 mEq/L [facility] DEPARTMENT OF PATHOLOGY AND GENOMIC MEDICINE Potassium 3.8 3.5 - 5.0 mEq/L [facility] DEPARTMENT OF PATHOLOGY AND GENOMIC MEDICINE Chloride 95 (L) 98 - 112 mEq/L [facility] DEPARTMENT OF PATHOLOGY AND GENOMIC MEDICINE CO2 26 24 - 31 mEq/L [facility] DEPARTMENT OF PATHOLOGY AND GENOMIC MEDICINE Anion gap 12@ANIO 7 - 15 mEq/L [facility] DEPARTMENT OF PATHOLOGY AND GENOMIC MEDICINE BUN 13 8 - 23 mg/dL [facility] DEPARTMENT OF PATHOLOGY AND GENOMIC MEDICINE Creatinine 0.6 (L) 0.7 - 1.2 mg/dL [facility] DEPARTMENT OF PATHOLOGY AND GENOMIC MEDICINE Glucose 95 65 - 99 mg/dL [facility] DEPARTMENT OF PATHOLOGY AND GENOMIC MEDICINE Calcium 8.5 (L) 8.8 - 10.2 mg/dL [facility] DEPARTMENT OF PATHOLOGY AND GENOMIC MEDICINE Specimen Plasma specimen Performing Organization Address [facility] [place] [address] PATHOLOGY AND GENOMIC MEDICINE * XR Chest 1 Vw Portable (11/16/2017 1:34 PM CDT) Only the most recent of 4 results within the time period is included. Specimen Narrative Performed At EXAMINATION:XR CHEST 1 VW [facility]:Shortness of breath COMPARISON:November 13, 2017 IMPRESSION: Changes related to midline sternotomy are noted.There is thoracic scoliosis. Heart size is the upper is normal.Pulmonary vessels are congested bilaterally with some minimal interstitial infiltrates.There is blunting of the costophrenic sulcus and atelectasis at the left lung base.There appear to be subacute left rib fractures with callus formation. [facility]-[id number] Procedure Note Hm Interface, Radiology Results Incoming [...] subacute left rib fractures with callus formation. [facility]-[id number] Performing Organization Address City/[facility]/Zipcode Phone Number [place] [id number] [place] [address] * CBC hemogram (11/15/2017 3:03 AM CDT) Only the most recent of 3 results within the time period is included. WBC 12.75 (H) 4.50 - 11.00 k/uL [facility] DEPARTMENT OF PATHOLOGY AND GENOMIC MEDICINE RBC 3.38 (L) 4.40 - 6.00 m/uL [facility] DEPARTMENT OF PATHOLOGY AND GENOMIC MEDICINE HGB 8.7 (L) 14.0 - 18.0 g/dL [facility] DEPARTMENT OF PATHOLOGY AND GENOMIC MEDICINE HCT 27.3 (L) 41.0 - 51.0 % [facility] DEPARTMENT OF PATHOLOGY AND GENOMIC MEDICINE MCV 80.8 (L) 82.0 - 100.0 fL [facility] DEPARTMENT OF PATHOLOGY AND GENOMIC MEDICINE MCH 25.7 (L) 27.0 - 34.0 pg [facility] DEPARTMENT OF PATHOLOGY AND GENOMIC MEDICINE MCHC 31.9 31.0 - 37.0 g/dL [facility] DEPARTMENT OF PATHOLOGY AND GENOMIC MEDICINE RDW - SD 50.6 37.0 - 55.0 fL [facility] DEPARTMENT OF PATHOLOGY AND GENOMIC MEDICINE MPV 9.8 8.8 - 13.2 fL [facility] DEPARTMENT OF PATHOLOGY AND GENOMIC MEDICINE Platelet count 120 (L) 150 - 400 k/uL [facility] DEPARTMENT OF PATHOLOGY AND GENOMIC MEDICINE Nucleated RBC 0.00 /100 WBC [facility] DEPARTMENT OF PATHOLOGY AND GENOMIC MEDICINE Specimen Blood Performing Organization Address City/[facility]/Zipcode Phone Number [address] [address] PATHOLOGY AND GENOMIC MEDICINE * Phosphorus level (11/15/2017 12:00 AM CDT) Only the most recent of 4 results within the time period is included. Phosphorus 2.2 (L) 2.4 - 4.5 mg/dL [facility] DEPARTMENT OF PATHOLOGY AND GENOMIC MEDICINE Specimen Plasma specimen Performing Organization Address [facility] [place] [address] PATHOLOGY AND [facility] * Ionized calcium (11/15/2017 12:00 AM CDT) Only the most recent of 3 results within the time period is included. pH 7.57 [facility] DEPARTMENT OF PATHOLOGY AND GENOMIC MEDICINE Ionized calcium 1.06 (L) 1.11 - 1.32 mmol/L [facility] PATHOLOGY AND GENOMIC MEDICINE Specimen Plasma specimen Performing Organization Address [facility] Phone Number [facility] [place] [place] [address] PATHOLOGY AND [facility]ICINE * ECG 12 lead (11/14/2017 6:14 AM CDT) Only the most recent of 3 results within the time period is included. Ventricular 82 [facility] MUSE rate Atrial rate 82 H MUSE NH interval 174 [facility] QRSD interval 82 [facility] M[facility] QT interval 382 [facility] QTC interval 446 [facility] P axis 1 32 [facility] M[facility] QRS axis 1 33 [facility] M[facility] T wave axis 32 [facility] MUSE EKG impression Normal sinus rhythm-Possible [facility] MUSE Inferior infarct , age undetermined-Abnormal ECG-In automated comparison with ECG of 13-NOV-2017 05:44,-No significant change was found- Specimen Performing Organization Address City/[facility] Phone Number [facility] MUSE [address] [place] [address] * Potassium level (11/13/2017 4:40 PM CDT) Potassium 4.0 3.5 - 5.0 mEq/L [facility] DEPARTMENT PATHOLOGY AND GENOMIC MEDICINE Specimen Plasma specimen Performing Organization Address [facility] [place] [address] PATHOLOGY AND [facility] * O2 saturation, venous (11/13/2017 4:00 AM CDT) [facility] Hemoglobin, 9.9 (L) 14.0 - 18.0 g/dL [facility] DEPARTMENT venous, syringe OF PATHOLOGY AND GENOMIC MEDICINE O2 saturation, 73 (H) 40 - 70 % [facility] DEPARTMENT venous OF PATHOLOGY AND GENOMIC MEDICINE Specimen Blood Performing Organization Address City/[facility] Phone Number [facility] [place] [place] [address] PATHOLOGY AND GENOMIC MEDICINE * Ionized calcium, arterial (11/12/2017 8:30 PM CDT) Only the most recent of 7 results within the time period is included. [facility] Ionized 1.18 1.11 - 1.32 mmol/L [facility] DEPARTMENT calcium, OF PATHOLOGY arterial AND GENOMIC MEDICINE Specimen Blood Performing Organization Address [facility] Phone Number [facility] [place] [place] [address] PATHOLOGY AND GENOMIC MEDICINE * Partial thromboplastin time, activated (11/12/2017 8:30 PM CDT) Only the most recent of 2 results within the time period is included. [facility] PTT 30.9 23.0 - 36.0 sec [facility] DEPARTMENT Comment: OF PATHOLOGY PTT therapeutic range for AND GENOMIC unfractionated heparin is MEDICINE 61.0-112.0 seconds which corresponds to Anti-Xa 0.3-0.7 U/ml. Specimen Blood Performing Organization Address [facility] Phone Number [facility] [place] [place] [address] PATHOLOGY AND [employer] MEDICINE * Prothrombin time with INR (11/12/2017 8:30 PM CDT) Only the most recent of 3 results within the time period is included. [facility] Prothrombin 20.0 (H) 12.0 - 15.0 sec [facility] DEPARTMENT time OF PATHOLOGY AND GENOMIC MEDICINE INR 1.7 [facility] DEPARTMENT Comment: OF PATHOLOGY The International Normalized AND GENOMIC Ratio (INR) is a therapeutic MEDICINE monitoring tool for patients who are stable on oral anticoagulant therapy. An INR of 2.0-3.0 is suggested for deep vein thrombosis/pulmonary embolism. Specimen Blood Performing Organization Address [facility] Phone Number [facility] [place] [place] [address] PATHOLOGY AND [employer] MEDICINE * Arterial blood gas (11/12/2017 8:30 PM CDT) pH, arterial 7.45 7.35 - 7.45 [facility] DEPARTMENT OF PATHOLOGY AND GENOMIC MEDICINE pCO2, arterial 31 (L) 35 - 45 mmHg [facility] DEPARTMENT OF PATHOLOGY AND GENOMIC MEDICINE pO2, arterial 206 (H) 80 - 90 mmHg [facility] DEPARTMENT OF PATHOLOGY AND GENOMIC MEDICINE Bicarbonate, 21.0 21.0 - 28.0 mmol/L [facility] DEPARTMENT arterial OF PATHOLOGY AND GENOMIC MEDICINE Base excess, -2 -2 - 2 mEq/L [facility] DEPARTMENT arterial OF PATHOLOGY AND GENOMIC MEDICINE O2 saturation, 99 95 - 100 % [facility] DEPARTMENT arterial OF PATHOLOGY AND GENOMIC MEDICINE Specimen Blood Performing Organization Address City/[facility] [place] [address] PATHOLOGY AND GENOMIC MEDICINE * Sodium level, syringe (11/12/2017 7:10 PM CDT) Only the most recent of 6 results within the time period is included. Sodium, syringe 135 135 - 148 mEq/L [facility] DEPARTMENT OF PATHOLOGY AND GENOMIC MEDICINE Specimen Blood Performing Organization Address City/[facility] [place] [address] PATHOLOGY AND GENOMIC MEDICINE * Potassium, syringe (11/12/2017 7:10 PM CDT) Only the most recent of 6 results within the time period is included. Potassium, 3.5 3.5 - 5.0 mEq/L [facility] DEPARTMENT syringe OF PATHOLOGY AND GENOMIC MEDICINE Specimen Blood Performing Organization Address City/[facility] [place] [address] PATHOLOGY AND GENOMIC MEDICINE * Hemoglobin, syringe (11/12/2017 7:10 PM CDT) Only the most recent of 6 results within the time period is included. Hemoglobin, 9.5 (L) 14.0 - 18.0 g/dL [facility] DEPARTMENT syringe OF PATHOLOGY AND GENOMIC MEDICINE Specimen Blood Performing Organization Address City/[facility] [place] [address] PATHOLOGY AND GENOMIC MEDICINE * Glucose level, syringe (11/12/2017 7:10 PM CDT) Only the most recent of 6 results within the time period is included. Glucose, 209 (H) 65 - 99 mg/dL [facility] DEPARTMENT syringe OF PATHOLOGY AND GENOMIC MEDICINE Specimen Blood Performing Organization Address [facility] Phone Number [facility] [place] [place] [address] PATHOLOGY AND GENOMIC MEDICINE * Arterial blood gas, corrected (11/12/2017 7:10 PM CDT) Only the most recent of 6 results within the time period is included. pH, arterial 7.42 7.35 - 7.45 [facility] DEPARTMENT OF PATHOLOGY AND GENOMIC MEDICINE pCO2, arterial 35 35 - 45 mmHg [facility] DEPARTMENT OF PATHOLOGY AND GENOMIC MEDICINE pO2, arterial 366 (H) 80 - 90 mmHg [facility] DEPARTMENT OF PATHOLOGY AND GENOMIC MEDICINE Temperature, 37.0 Degrees C [facility] DEPARTMENT [employer] OF PATHOLOGY AND GENOMIC MEDICINE O2 saturation, 100 95 - 100 % [facility] DEPARTMENT arterial OF PATHOLOGY AND GENOMIC MEDICINE pH, arterial 7.42 [facility] DEPARTMENT corrected OF PATHOLOGY AND GENOMIC MEDICINE pCO2, arterial 35 mmHg [facility] DEPARTMENT corrected OF PATHOLOGY AND GENOMIC MEDICINE pO2, arterial 366 mmHg [facility] DEPARTMENT corrected OF PATHOLOGY AND GENOMIC MEDICINE Base excess, -2 -2 - 2 mEq/L [facility] DEPARTMENT arterial OF PATHOLOGY AND GENOMIC MEDICINE Specimen Blood Performing Organization Address [facility] Phone Number [facility] [place] [place] [address] PATHOLOGY AND GENOMIC MEDICINE * Lactic acid, syringe (11/12/2017 6:32 PM CDT) Only the most recent of 2 results within the time period is included. Lactic acid, 2.0 0.5 - 2.2 mmol/L [facility] DEPARTMENT syringe OF PATHOLOGY AND GENOMIC MEDICINE Specimen Blood Performing Organization Address [facility] Phone Number [facility] [place] [place] [address] PATHOLOGY AND GENOMIC MEDICINE * Fibrinogen (11/12/2017 6:32 PM CDT) Fibrinogen 184 (L) 200 - 450 mg/dL [facility] DEPARTMENT OF PATHOLOGY AND GENOMIC MEDICINE Specimen Blood Performing Organization Address [facility] [place] [address] PATHOLOGY AND GENOMIC MEDICINE * Platelet count (11/12/2017 6:32 PM CDT) Platelet count 96 (L) 150 - 400 k/uL [facility] DEPARTMENT OF PATHOLOGY AND GENOMIC MEDICINE Specimen Performing Organization Address [facility] Phone Number [facility] DEPARTMENT OF [address] [place] [address] PATHOLOGY AND GENOMIC MEDICINE * XR Chest 2 Vw (11/07/2017 1:45 PM CDT) Specimen Narrative Performed At EXAMINATION:XR CHEST 2 [facility]W [facility]:77 years Male Z01.818 Encounter for [...] There are multiple old left-sided rib fractures. [facility]-[id number] Procedure Note Interface, Radiology Results Incoming - [...] There are multiple old left-sided rib fractures. [facility]-[id number] Performing Organization Address City/[facility]/Zipcode Phone Number [facility] [address] [place] [address] * Urine culture (11/07/2017 1:26 PM CDT) Urine culture SEE COMMENTComment: [facility] DEPARTMENT Bacteriuria screen negative. OF PATHOLOGY AND GENOMIC MEDICINE Specimen Performing Organization Address City/[facility]/Zipcode Phone Number [facility] DEPARTMENT OF [address] [place] [address] PATHOLOGY AND GENOMIC MEDICINE * Spirometry (11/07/2017 [...] 86 [facility] Specimen Performing Organization Address City/[facility] Phone Number [facility] [address] [place] [address] * ECG Pre/Post Op (11/07/2017 12:29 PM CDT) Ventricular 69 [facility] MUSE rate Atrial rate 69 [facility] MUSE NH interval 212 [facility] MUSE QRSD interval 82 [facility] MUSE QT interval 386 [facility] MUSE QTC interval 413 [facility] MUSE P axis 1 77 [facility] MUSE QRS axis 1 42 [facility] MUSE T wave axis 38 [facility] MUSE EKG impression Sinus rhythm with 1st degree [facility] MUSE AV block-Otherwise normal ECG-No previous ECGs available- Specimen Performing Organization Address City/[facility] Phone Number [facility] MUSE [address] [place] [address] * Urinalysis screen and microscopy, with reflex to culture (11/07/2017 12:05 PM CDT) Specimen site Clean catch [facility] DEPARTMENT OF PATHOLOGY AND GENOMIC MEDICINE Color, UA Yellow [facility] DEPARTMENT OF PATHOLOGY AND GENOMIC MEDICINE Appearance, UA Clear [facility] DEPARTMENT OF PATHOLOGY AND GENOMIC MEDICINE Specific 1.014 1.001 - 1.035 [facility] DEPARTMENT gravity, OF PATHOLOGY AND GENOMIC MEDICINE pH, UA 6.0 5.0 - 8.5 [facility] DEPARTMENT OF PATHOLOGY AND GENOMIC MEDICINE Protein, UA Negative Negative [facility] DEPARTMENT OF PATHOLOGY AND GENOMIC MEDICINE Glucose, UA Negative Negative [facility] DEPARTMENT OF PATHOLOGY AND GENOMIC MEDICINE Ketones, UA Trace (A) Negative [facility] DEPARTMENT OF PATHOLOGY AND GENOMIC MEDICINE Bilirubin, UA Negative Negative [facility] DEPARTMENT OF PATHOLOGY AND GENOMIC MEDICINE Blood, UA Negative Negative [facility] DEPARTMENT OF PATHOLOGY AND GENOMIC MEDICINE Nitrite, UA Negative Negative [facility] DEPARTMENT OF PATHOLOGY AND GENOMIC MEDICINE Urobilinogen, <2.0 <2.0 [facility] DEPARTMENT UA OF PATHOLOGY AND GENOMIC MEDICINE Leukocyte Negative Negative [facility] DEPARTMENT esterase, UA OF PATHOLOGY AND GENOMIC MEDICINE WBC, UA 1 0 - 1 /HPF [facility] DEPARTMENT OF PATHOLOGY AND GENOMIC MEDICINE RBC, UA 1 0 - 5 /HPF [facility] DEPARTMENT OF PATHOLOGY AND GENOMIC MEDICINE Bacteria, UA Few None seen [facility] DEPARTMENT OF PATHOLOGY AND GENOMIC MEDICINE Yeast, UA None seen [facility] DEPARTMENT OF PATHOLOGY AND GENOMIC MEDICINE Yeast with None seen [facility] DEPARTMENT pseudohyphae, OF PATHOLOGY UA AND GENOMIC MEDICINE Specimen Urine Performing Organization Address City/State/Zipcode Phone Number [facility] DEPARTMENT OF [address] [place] [address] PATHOLOGY AND GENOMIC MEDICINE * Prepare RBC (11/07/2017 12:05 PM CDT) Product name Red Blood Cells -1, Leukored [facility] DEPARTMENT OF PATHOLOGY AND GENOMIC MEDICINE Unit number [id number] [facility] DEPARTMENT OF PATHOLOGY AND GENOMIC MEDICINE Product code [id number] [facility] DEPARTMENT OF PATHOLOGY AND GENOMIC MEDICINE Dispense status Transfused [facility] DEPARTMENT OF PATHOLOGY AND GENOMIC MEDICINE Blood [id number] [facility] DEPARTMENT expiration date OF PATHOLOGY AND GENOMIC MEDICINE Blood type code 6200 [facility] DEPARTMENT OF PATHOLOGY AND GENOMIC MEDICINE Blood type A POSITIVE [facility] DEPARTMENT OF PATHOLOGY AND GENOMIC MEDICINE Product name Red Blood Cells -1, Leukored [facility] DEPARTMENT OF PATHOLOGY AND GENOMIC MEDICINE Unit number [id number] [facility] DEPARTMENT OF PATHOLOGY AND GENOMIC MEDICINE Product code [id number] [facility] DEPARTMENT OF PATHOLOGY AND GENOMIC MEDICINE Dispense status Transfused [facility] DEPARTMENT OF PATHOLOGY AND GENOMIC MEDICINE Blood [id number] [facility] DEPARTMENT expiration date OF PATHOLOGY AND GENOMIC MEDICINE Blood type code 6200 [facility] DEPARTMENT OF PATHOLOGY AND GENOMIC MEDICINE Blood type A POSITIVE [facility] DEPARTMENT OF PATHOLOGY AND GENOMIC MEDICINE Product name Red Blood Cells -1, Leukored [facility] DEPARTMENT OF PATHOLOGY AND GENOMIC MEDICINE Unit number [id number] [facility] DEPARTMENT OF PATHOLOGY AND GENOMIC MEDICINE Product code [id number] [facility] DEPARTMENT OF PATHOLOGY AND GENOMIC MEDICINE Dispense status Returned to BB not transfused [facility] DEPARTMENT OF PATHOLOGY AND GENOMIC MEDICINE Blood [id number] [facility] DEPARTMENT expiration date OF PATHOLOGY AND GENOMIC MEDICINE Blood type code 6200 [facility] DEPARTMENT OF PATHOLOGY AND GENOMIC MEDICINE Blood type A POSITIVE [facility] DEPARTMENT OF PATHOLOGY AND GENOMIC MEDICINE Product name Red Blood Cells -1, Leukored [facility] DEPARTMENT OF PATHOLOGY AND GENOMIC MEDICINE Unit number [id number] [facility] DEPARTMENT OF PATHOLOGY AND GENOMIC MEDICINE Product code [id number] [facility] DEPARTMENT OF PATHOLOGY AND GENOMIC MEDICINE Dispense status Returned to BB not transfused [facility] DEPARTMENT OF PATHOLOGY AND GENOMIC MEDICINE Blood [id number] [facility] DEPARTMENT expiration date OF PATHOLOGY AND GENOMIC MEDICINE Blood type code 6200 [facility] DEPARTMENT OF PATHOLOGY AND GENOMIC MEDICINE Blood type A POSITIVE [facility] DEPARTMENT OF PATHOLOGY AND GENOMIC MEDICINE Specimen Performing Organization Address City/[facility]/Zipcode Phone Number [facility] DEPARTMENT [address] [address] PATHOLOGY AND GENOMIC MEDICINE * Type and screen (11/07/2017 12:05 PM CDT) ABO grouping A [facility] DEPARTMENT OF PATHOLOGY AND GENOMIC MEDICINE Rh type POS [facility] DEPARTMENT OF PATHOLOGY AND GENOMIC MEDICINE Antibody screen NEG [facility] DEPARTMENT (gel) OF PATHOLOGY AND GENOMIC MEDICINE Specimen Blood Performing Organization Address City/State/Zipcode Phone Number [facility] DEPARTMENT OF [address] [place] [phone] PATHOLOGY AND GENOMIC MEDICINE * Hemoglobin A1c (11/07/2017 12:05 PM CDT) Pathologist [facility] [place] Hemoglobin A1C 6.5 (H) 4.0 - 5.6 % [facility] DEPARTMENT Comment: OF PATHOLOGY HbA1c cutoffs for [...] Blood Performing Organization Address City/State/Zipcode Phone Number [facility] DEPARTMENT OF [address] [place] [address] PATHOLOGY AND GENOMIC MEDICINE * Comprehensive metabolic panel (11/07/2017 12:05 PM CDT) Sodium 131 (L) 135 - 148 mEq/L [facility] DEPARTMENT OF PATHOLOGY AND GENOMIC MEDICINE Potassium 5.4 (H) 3.5 - 5.0 mEq/L [facility] DEPARTMENT OF PATHOLOGY AND GENOMIC MEDICINE Chloride 92 (L) 98 - 112 mEq/L [facility] DEPARTMENT OF PATHOLOGY AND GENOMIC MEDICINE CO2 25 24 - 31 mEq/L [facility] DEPARTMENT OF PATHOLOGY AND GENOMIC MEDICINE Anion gap 14@ANIO 7 - 15 mEq/L [facility] DEPARTMENT OF PATHOLOGY AND GENOMIC MEDICINE BUN 19 8 - 23 mg/dL [facility] DEPARTMENT OF PATHOLOGY AND GENOMIC MEDICINE Creatinine 0.6 (L) 0.7 - 1.2 mg/dL [facility] DEPARTMENT OF PATHOLOGY AND GENOMIC MEDICINE Glucose 248 (H) 65 - 99 mg/dL [facility] DEPARTMENT OF PATHOLOGY AND GENOMIC MEDICINE Calcium 9.1 8.8 - 10.2 mg/dL [facility] DEPARTMENT OF PATHOLOGY AND GENOMIC MEDICINE Protein 8.1 6.3 - 8.3 g/dL [facility] DEPARTMENT Comment: OF PATHOLOGY [place] AND GENOMIC 4.6-7.0 g/dL MEDICINE 1 week 4.4-7.6 g/dL 7 months-1year 5.1-7.3 g/dL 1-2 years5.6-7 .5 g/dL >3 years6.0-8 .0 g/dL 18-150 6.3-8.3 g/dL Albumin 3.5 3.5 - 5.0 g/dL [facility] DEPARTMENT OF PATHOLOGY AND GENOMIC MEDICINE A/G ratio 0.8 0.7 - 3.8 [facility] DEPARTMENT OF PATHOLOGY AND GENOMIC MEDICINE Alkaline 63 40 - 129 U/L [facility] DEPARTMENT phosphatase OF PATHOLOGY AND GENOMIC MEDICINE AST 14 10 - 50 U/L [facility] DEPARTMENT OF PATHOLOGY AND GENOMIC MEDICINE ALT 8 5 - 50 U/L [facility] DEPARTMENT OF PATHOLOGY AND GENOMIC MEDICINE Total bilirubin <0.2 0.0 - 1.2 mg/dL [facility] DEPARTMENT OF PATHOLOGY AND GENOMIC MEDICINE Specimen Plasma specimen Performing Organization Address City/[facility] [place] [address] PATHOLOGY AND GENOMIC MEDICINE * Total iron binding capacity (11/07/2017 12:04 PM CDT) Iron level 38 (L) 59 - 158 ug/dL [facility] DEPARTMENT OF PATHOLOGY AND GENOMIC MEDICINE Iron binding 362 200 - 400 ug/dL [facility] DEPARTMENT capacity OF PATHOLOGY AND GENOMIC MEDICINE % Saturation 10.5 (L) 20.0 - 40.0 % [facility] DEPARTMENT OF PATHOLOGY AND GENOMIC MEDICINE Specimen Plasma specimen Performing Organization Address City/[facility] [place] [address] PATHOLOGY AND [employer] MEDICINE * Ferritin level (11/07/2017 12:04 PM CDT) Ferritin level 26 (L) 30 - 400 ng/mL [facility] DEPARTMENT OF PATHOLOGY AND GENOMIC MEDICINE Specimen Plasma specimen Performing Organization Address City/[facility] Phone Number [facility] DEPARTMENT OF [address] [place] [address] PATHOLOGY AND GENOMIC MEDICINE * Vitamin B12 level (11/07/2017 12:04 PM CDT) Vitamin B12 839 211 - 946 pg/mL [facility] DEPARTMENT Comment: OF PATHOLOGY Significant overlap exists AND GENOMIC between normal and deficiency MEDICINE states. However, most patients with deficiencies will have Serum B12 <200 pg/mL. Specimen Serum Performing Organization Address City/State/Zipcode Phone Number [facility] DEPARTMENT OF [address] [place] [address] PATHOLOGY AND GENOMIC MEDICINE after 10/16/2017 Insurance Type Payer Benefit Subscriber ID Effective Phone Address Plan / Dates Group HMO [employer] C[employer] xxxxxxxxxxx [id number] [employer] resent NG O MCR ADV Advance Directives Patient has advance care planning documents on file. For more information, elvira hinson contact: [facility] [place] [address] [place] [address]
--- NOTE | 2018-10-17 21:35 | NUR ---
Patient vitals remained stable, 1950: 145/80, hr 66, temp. 98.4, 2030: 148/76, hr=70, temp. 98.2 2100: sh=220/72, hr 66, temp. 97.9. Patient was discharge and wheeled to front gate for a waiting van, site of the procedure, right groin remained soft and intact. patient was educated to keep it free of pressure, and avoid touching it, patient was instructed to come back to [facility] IF SIGNS OF BLEEDING.
--- NOTE | 2018-12-05 15:56 | Operative Report ---
DATE OF PROCEDURE: 10/17/2018 SURGEON: Ahsan Fitzgerald DO PROCEDURES PERFORMED: 1. Selective coronary angiography x2. 2. Selective graft angiography. PREPROCEDURE DIAGNOSIS: Precardiac clearance with known history of coronary artery disease, status post bypass surgery. POSTPROCEDURE DIAGNOSIS: Precardiac clearance with known history of coronary artery disease, status post bypass surgery. ESTIMATED BLOOD LOSS: Less than 20 mL. SPECIMENS REMOVED: None. PROCEDURE IN DETAIL: After informed consent was obtained, the patient was brought to the cardiac catheterization laboratory in a fasting and nonsedated state. Bilateral groins were prepped and draped in the usual sterile fashion. Lidocaine 2% was infiltrated over the right anterior groin for local anesthesia. Using micropuncture needle, the right common femoral artery was accessed via modified Seldinger technique and a 5-Zambian sheath was placed. Next, selective graft angiography, coronary angiography, and left heart catheterization were performed. Conscious sedation was given for 30 minutes. The patient tolerated the procedure well with no immediate complications, transferred back to his room in stable condition. PROCEDURAL FINDINGS: 1. Left main coronary artery has a 20% stenosis. 2. Left anterior descending coronary artery is patent proximally and has mid 50% to 60% stenosis. 3. Left circumflex coronary artery is patent proximally and provides two obtuse marginal vessels. After the second OM, it continues into a third OM with 80% disease, however, this is small vessel, less than 2 mm. 4. Right coronary artery is chronically occluded proximally and fills via collaterals from the left coronary system. 5. There is arterial graft seen anastomosed to the mid left anterior descending coronary, which is patent. 6. The left internal mammary artery was not visualized in its anatomic position. 7. The right internal mammary artery is in its little river position and is not anastomosed to any coronary vessel. 8. No saphenous vein grafts were visualized. IMPRESSION: Coronary artery disease with patent grafts and collaterals to his right coronary artery. RECOMMENDATIONS: Medical management. Ahsan Fitzgerald DO BM/MODL /[id number]
[2019-01-01] MEDS ORDERED: CLOPIDOGREL75 MG PO (11:37)
[2019-01-01] MEDS ORDERED: SOLIQUA SQ (11:37)
== END 2018-10-17 21:37 | disposition home or self-care (01) ==
LOC: CATH LAB 14:31 → IMCU 19:49
PROVIDERS: ADMIT Internal Medicine Cardiovascular Disease; ATTEND Internal Medicine Cardiovascular Disease
DX: I25.118 Atherosclerotic heart disease of native coronary artery with other forms of angina pectoris (principal); I73.9 Peripheral vascular disease, unspecified; Z88.8 Allergy status to other drugs, medicaments and biological substances; Z01.812 Encounter for preprocedural laboratory examination; I10 Essential (primary) hypertension; Z95.1 Presence of aortocoronary bypass graft; E11.9 Type 2 diabetes mellitus without complications; Z86.73 Personal history of transient ischemic attack (TIA), and cerebral infarction without residual deficits; I25.2 Old myocardial infarction; Z83.3 Family history of diabetes mellitus; Z82.49 Family history of ischemic heart disease and other diseases of the circulatory system; Z80.9 Family history of malignant neoplasm, unspecified
CPT/HCPCS: 36415; 80053; 85025; 85610; 93459; C1760; C1769; G0378; J2001; J2250; J7030; J3010

== ENCOUNTER 2018-11-13 10:39 | Observation (INO) | payer MEDICARE ==
[2018-11-05 13:12] LABS: BASOPHILS % 0.5 % (0.0-1.0); EOSINOPHILS # (AUTO) 0.1 (0.0-0.4); EOSINOPHILS % 1.2 % (0.0-6.0); HEMATOCRIT 39.5 % (38.2-49.6); HEMOGLOBIN 13.3 g/dL (14.0-18.0); LYMPHOCYTES # (AUTO) 1.2 (1.0-3.2); LYMPHOCYTES % 16.2 % (18.0-39.1); MEAN CORPUSCULAR HEMOGLOBIN 29.6 pg (28-32); MEAN CORPUSCULAR HGB CONC 33.7 g/dL (31-35); MONOCYTES # (AUTO) 0.7 (0.2-0.8); MONOCYTES % 9.9 % (4.4-11.3); NEUTROPHILS # (AUTO) 5.3 (2.1-6.9); NEUTROPHILS % 71.8 % (38.7-80.0); PLATELET COUNT 195 x10e3/uL (140-360); RED BLOOD COUNT 4.49 x10e6/uL (4.3-5.7); RED CELL DISTRIBUTION WIDTH 12.6 % (11.7-14.4)
[2018-11-05 13:32] LABS: ALANINE AMINOTRANSFERASE 16 IU/L (0-55); ALBUMIN 3.6 g/dL (3.5-5.0); ALBUMIN/GLOBULIN RATIO 0.9 (0.8-2.0); ALKALINE PHOSPHATASE 61 IU/L (40-150); ANION GAP 12.3 mmol/L (8-16); BLOOD UREA NITROGEN 15 mg/dL (7-26); BUN/CREATININE RATIO 19 (6-25); CALCIUM 9.4 mg/dL (8.4-10.2); CARBON DIOXIDE 26 mmol/L (22-29); CHLORIDE 92 mmol/L (98-107); CREATININE, SERUM 0.77 mg/dL (0.72-1.25); EST GLOMERULAR FILTRATION RATE > 60 ML/MIN (60-); GLUCOSE 297 mg/dL (74-118); POTASSIUM 4.3 mmol/L (3.5-5.1); SODIUM 126 mmol/L (136-145)
--- NOTE | 2018-11-05 13:38 | Diagnostic Imaging Report ---
PROCEDURE: X-RAY CHEST, TWO VIEWS COMPARISON: 01/15/2017. INDICATIONS: PRE-OP, PROSTATE SURGERY FINDINGS: Lungs are well-expanded and without focal consolidation, pleural effusion, or pneumothorax. Biapical pleural-parenchymal scar unchanged, with right apical calcified granuloma. Interval median sternotomy with multiple intact wires. Atherosclerotic calcification of the thoracic aorta. Normal heart size without pulmonary edema. Partially healed fracture deformities of the left fifth, sixth, seventh, and eighth ribs were not present on the comparison. No pneumothorax. No acute osseous abnormality. CONCLUSION: No acute cardiopulmonary abnormality. Interval median sternotomy. Multiple incompletely healed left-sided rib fracture deformities new compared to 01/15/2017. Dictated by: Yovanny Mcfarland M.D. on 11/05/2018 at 13:43 Electronically approved by: Yovanny Mcfarland M.D. on 11/05/2018 at 13:43
[~2018-11-13] VITALS: Ht 170.2 cm; Wt 62.0 kg
[~2018-11-13 10:39] MED LIST changes: +FERROUS SULFAT325 MG PO; +LEVOTHYROXINE50 MCG PO; +LISINOPRIL5 MG PO; +MACRODANTIN100 MG PO; +METOPROLOL TART25 MG PO
--- OUTSIDE RECORDS SUMMARY | 2018-11-13 10:43 | XMS REPORT | Clinical Summary ---
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 Name Role Phone Asked, No Pcp PCP [...] Nancy Aragon RN 11/17/2017 Patient Quality Outreach Shawn Martines MD CABx3 (AO-FREE POWER-LAD; AO-[id number]) 11/12/2017 Surgery Cardiothoracic Surgery Jennifer Eugene NP 11/12/2017 Anesthesia Cardiothoracic Surgery Event Shawn Martines MD 11/12/2017 Hospital Cardiovascular - Encounter 11/17/2017 after 11/12/2017 Social History Date Tobacco Use Types Packs/Day [...] Tmpry Cardiovasc N/A: N/A [employer] Streamline - [id number] [facility] - Implanted: 11/12/2017 (Quantity not Implants CARDIAC on file) SRGRY 02/27/2022 [id number] / / [id number] Drain Fluted Full Chnl Silicone Rnd Surgical N/A: N/A CR BARD Hubless 19fr 1/4in 6.3mm - Implants; [id number] Expanders; Implanted: 11/12/2017 (Quantity not Extenders; on file) Surgical Wires 02/27/2022 [id number] / / [id number] Drain Fluted Full Chnl Silicone Rnd Surgical N/A: N/A CR BARD Hubless 19fr 1/4in 6.3mm - Implants; [id number] Expanders; Implanted: 11/12/2017 (Quantity not Extenders; on file) Surgical Wires 05/27/2022 [id number] / / [id number] [place] Perph Vasclr Ptfe 1.2x10cm Vascular N/A: N/A BARD 1.65mm - [id number] Graft PERIPHERAL Implanted: 11/12/2017 (Quantity not VASCULAR [...] Echo: hemodynami c monitoring Physician Requesting Echo: SHAWN MARTINES Location performed: OR Intubated Bite block [...] Inferior: normal 16- Apical Septal: normal 17- [place]: normal Valves Aortic Valve: Annulus normal. Stenosis [...] solutions labeled Procedure details: PA Catheter Type: CHALK CUTTER PA Catheter Size: 9 PA Catheter Side: [...] Staff: Anesthesio logist: ARIADNE COVARRUBIAS Performed by: /Barry MATHUR Pre-proced ure: patient identified , IV checked, [...] to thread cath. Elect brachial to left [place] AN ELECTIVE Routine 11/12/2017 ENDOTRACHEAL AIRWAY 1:35 PM CDT Procedure Note - Ariadne Covarrubias MD - 11/12/2017 1:35 PM CDT Airway Date/Time: 11/12/2017 1:03 PM Performed by: MATTHEW MARQUIS Authorized by: ARIADNE COVARRUBIAS Location: OR Urgency: Elective Difficult Airway: No Anesthesio logist: ARIADNE COVARRUBIAS Resident/C RNA/AA: MATTHEW MARQUIS Other Anesthesia Staff: VALERIA SZYMANSKI [...] POC GLUCOSE Routine 11/12/2017 12:07 PM CDT after 11/12/2017 Results * POC glucose (11/17/2017 12:27 PM CDT) Only the most recent of 43 results within the time period is included. [facility] POC glucose 289 (H) 65 - 99 mg/dL [facility] DEPARTMENT Comment: OF PATHOLOGY Meter ID: [id number] AND GENOMIC Environmental Services Coordinator: Arron ALEX Specimen Performing Organization Address City/State/[facility] Phone Number [facility] DEPARTMENT OF [address] [place] [address] PATHOLOGY AND GENOMIC MEDICINE * CBC with platelet and differential (11/17/2017 4:45 AM CDT) Only the most recent of 3 results within the time period is included. Pathologist [facility] WBC 9.33 4.50 - 11.00 k/uL [facility] DEPARTMENT OF PATHOLOGY AND GENOMIC MEDICINE RBC 3.34 (L) 4.40 - 6.00 m/uL [facility] DEPARTMENT OF PATHOLOGY AND GENOMIC MEDICINE HGB 8.7 (L) 14.0 - 18.0 g/dL [facility] DEPARTMENT OF PATHOLOGY AND GENOMIC MEDICINE HCT 26.6 (L) 41.0 - 51.0 % [facility] DEPARTMENT OF PATHOLOGY AND GENOMIC MEDICINE MCV 79.6 (L) 82.0 - 100.0 fL [facility] DEPARTMENT OF PATHOLOGY AND GENOMIC MEDICINE MCH 26.0 (L) 27.0 - 34.0 pg [facility] DEPARTMENT OF PATHOLOGY AND GENOMIC MEDICINE MCHC 32.7 31.0 - 37.0 g/dL [facility] DEPARTMENT OF PATHOLOGY AND GENOMIC MEDICINE RDW - SD 50.1 37.0 - 55.0 fL [facility] DEPARTMENT OF PATHOLOGY AND GENOMIC MEDICINE MPV 9.7 8.8 - 13.2 fL [facility] DEPARTMENT OF PATHOLOGY AND GENOMIC MEDICINE Platelet count 209 150 - 400 k/uL [facility] DEPARTMENT OF PATHOLOGY AND GENOMIC MEDICINE Nucleated RBC 0.00 /100 WBC [facility] DEPARTMENT OF PATHOLOGY AND GENOMIC MEDICINE Neutrophils 69.4 (H) 39.0 - 69.0 % [facility] DEPARTMENT OF PATHOLOGY AND GENOMIC MEDICINE Lymphocytes 14.5 (L) 25.0 - 45.0 % [facility] DEPARTMENT OF PATHOLOGY AND GENOMIC MEDICINE Monocytes 12.5 (H) 0.0 - 10.0 % [facility] DEPARTMENT OF PATHOLOGY AND GENOMIC MEDICINE Eosinophils 2.8 0.0 - 5.0 % [facility] DEPARTMENT OF PATHOLOGY AND GENOMIC MEDICINE Basophils 0.4 0.0 - 1.0 % [facility] DEPARTMENT OF PATHOLOGY AND GENOMIC MEDICINE Immature 0.4Comment: "Immature 0.0 - 1.0 % [facility] DEPARTMENT granulocytes granulocytes" (promyelocytes, OF PATHOLOGY myelocytes, metamyelocytes) AND GENOMIC MEDICINE Specimen Blood Performing Organization Address City/State/[facility]ode Phone Number [facility] DEPARTMENT OF [address] [place] [address] PATHOLOGY AND GENOMIC [facility] * Estimated GFR (11/17/2017 4:00 AM CDT) Only the most recent of 6 results within the time period is included. GFR Non Af Amer >90 mL/min/1.73 m2 [facility] DEPARTMENT OF PATHOLOGY AND GENOMIC MEDICINE GFR Af Amer >90 mL/min/1.73 m2 [facility] DEPARTMENT Comment: OF PATHOLOGY Chronic [...] Americans. Specimen Plasma specimen Performing Organization Address City/State/Zipcode Phone Number [facility] [place] [address] PATHOLOGY AND GENOMIC MEDICINE * Magnesium level (11/17/2017 4:00 AM CDT) Only the most recent of 8 results within the time period is included. Pathologist [facility] Magnesium 1.8 1.6 - 2.4 mg/dL [facility] DEPARTMENT OF PATHOLOGY AND GENOMIC MEDICINE Specimen Plasma specimen Performing Organization Address [facility] [place] [address] PATHOLOGY AND GENOMIC MEDICINE * Basic metabolic panel (11/17/2017 4:00 AM CDT) Only the most recent of 6 results within the time period is included. Sodium 133 (L) 135 - 148 mEq/L [facility] DEPARTMENT OF PATHOLOGY AND GENOMIC MEDICINE Potassium 3.8 3.5 - 5.0 mEq/L [facility] DEPARTMENT OF PATHOLOGY AND GENOMIC MEDICINE Chloride 95 (L) 98 - 112 mEq/L [facility] DEPARTMENT OF PATHOLOGY AND GENOMIC MEDICINE CO2 26 24 - 31 mEq/L [facility] DEPARTMENT OF PATHOLOGY AND GENOMIC MEDICINE Anion gap 12@ANIO 7 - 15 mEq/L [facility] DEPARTMENT OF PATHOLOGY AND GENOMIC MEDICINE BUN 13 8 - 23 mg/dL [facility] DEPARTMENT OF PATHOLOGY AND GENOMIC MEDICINE Creatinine 0.6 (L) 0.7 - 1.2 mg/dL [facility] DEPARTMENT OF PATHOLOGY AND GENOMIC MEDICINE Glucose 95 65 - 99 mg/dL [facility] DEPARTMENT OF PATHOLOGY AND GENOMIC MEDICINE Calcium 8.5 (L) 8.8 - 10.2 mg/dL [facility] DEPARTMENT OF PATHOLOGY AND GENOMIC MEDICINE Specimen Plasma specimen Performing Organization Address [facility] Centerconj Phone Number [facility] [place] [address] PATHOLOGY AND GENOMIC MEDICINE * XR Chest 1 Vw Portable (11/16/2017 1:34 PM CDT) Only the most recent of 4 results within the time period is included. Specimen Narrative Performed At EXAMINATION:XR CHEST [facility]ICAL HISTORY:Shortness of breath COMPARISON:November 13, 2017 IMPRESSION: Changes related to midline sternotomy are noted.There is thoracic scoliosis. Heart size is the upper is normal.Pulmonary vessels are congested bilaterally with some minimal interstitial infiltrates.There is blunting of the costophrenic sulcus and atelectasis at the left lung base.There appear to be subacute left rib fractures with callus formation. [facility]-[id number] Procedure Note Hm Interface, Radiology Results Incoming [...] subacute left rib fractures with callus formation. [facility]-[id number] Performing Organization Address City/[facility]/Zipcode Phone Number [address] [address] * CBC hemogram (11/15/2017 3:03 AM CDT) Only the most recent of 3 results within the time period is included. WBC 12.75 (H) 4.50 - 11.00 k/uL [facility] DEPARTMENT OF PATHOLOGY AND GENOMIC MEDICINE RBC 3.38 (L) 4.40 - 6.00 m/uL [facility] DEPARTMENT OF PATHOLOGY AND GENOMIC MEDICINE HGB 8.7 (L) 14.0 - 18.0 g/dL [facility] DEPARTMENT OF PATHOLOGY AND GENOMIC MEDICINE HCT 27.3 (L) 41.0 - 51.0 % [facility] DEPARTMENT OF PATHOLOGY AND GENOMIC MEDICINE MCV 80.8 (L) 82.0 - 100.0 fL [facility] DEPARTMENT OF PATHOLOGY AND GENOMIC MEDICINE MCH 25.7 (L) 27.0 - 34.0 pg [facility] DEPARTMENT OF PATHOLOGY AND GENOMIC MEDICINE MCHC 31.9 31.0 - 37.0 g/dL [facility] DEPARTMENT OF PATHOLOGY AND GENOMIC MEDICINE RDW - SD 50.6 37.0 - 55.0 fL [facility] DEPARTMENT OF PATHOLOGY AND GENOMIC MEDICINE MPV 9.8 8.8 - 13.2 fL [facility] DEPARTMENT OF PATHOLOGY AND GENOMIC MEDICINE Platelet count 120 (L) 150 - 400 k/uL [facility] DEPARTMENT OF PATHOLOGY AND GENOMIC MEDICINE Nucleated RBC 0.00 /100 WBC [facility] DEPARTMENT OF PATHOLOGY AND GENOMIC MEDICINE Specimen Blood Performing Organization Address City/[facility]/Zipcode Phone Number [address] [address] PATHOLOGY AND GENOMIC MEDICINE * Phosphorus level (11/15/2017 12:00 AM CDT) Only the most recent of 4 results within the time period is included. Phosphorus 2.2 (L) 2.4 - 4.5 mg/dL [facility] DEPARTMENT OF PATHOLOGY AND GENOMIC MEDICINE Specimen Plasma specimen Performing Organization Address [facility] [place] [address] PATHOLOGY AND [facility] MEDICINE * Ionized calcium (11/15/2017 12:00 AM CDT) Only the most recent of 3 results within the time period is included. pH 7.57 [facility] DEPARTMENT OF PATHOLOGY AND GENOMIC MEDICINE Ionized calcium 1.06 (L) 1.11 - 1.32 mmol/L [facility] DEPARTMENT PATHOLOGY [facility] GENOMIC MEDICINE Specimen Plasma specimen Performing Organization Address [facility] Phone Number [facility] [place] [address] PATHOLOGY [facility] MEDICINE * ECG 12 lead (11/14/2017 6:14 AM CDT) Only the most recent of 3 results within the time period is included. Ventricular 82 [facility] rate Atrial rate 82 [facility] W[place] interval 174 [facility] QRSD interval 82 [facility] QT interval 382 [facility] QTC interval 446 [facility] MUSE P axis 1 32 HM MUSE QRS axis 1 33 [facility] MUSE T wave axis 32 [facility] MUSE EKG impression Normal sinus rhythm-Possible [facility] MUSE Inferior infarct , age undetermined-Abnormal ECG-In automated comparison with ECG of 13-NOV-2017 05:44,-No significant change was found- Specimen Performing Organization Address [facility] [place] [address] * Potassium level (11/13/2017 4:40 PM CDT) Potassium 4.0 3.5 - 5.0 mEq/L [facility] DEPARTMENT OF PATHOLOGY AND GENOMIC MEDICINE Specimen Plasma specimen Performing Organization Address [facility] [place] [address] PATHOLOGY AND [facility] MEDICINE * O2 saturation, venous (11/13/2017 4:00 AM CDT) Hemoglobin, 9.9 (L) 14.0 - 18.0 g/dL [facility] DEPARTMENT venous, syringe OF PATHOLOGY AND GENOMIC MEDICINE O2 saturation, 73 (H) 40 - 70 % [facility] DEPARTMENT venous OF PATHOLOGY AND GENOMIC MEDICINE Specimen Blood Performing Organization Address City/[facility] [place] [address] PATHOLOGY AND GENOMIC MEDICINE * Ionized calcium, arterial (11/12/2017 8:30 PM CDT) Only the most recent of 7 results within the time period is included. Pathologist [facility] Ionized 1.18 1.11 - 1.32 mmol/L [facility] DEPARTMENT calcium, OF PATHOLOGY arterial AND GENOMIC MEDICINE Specimen Blood Performing Organization Address [facility] [place] [address] PATHOLOGY AND [facility] MEDICINE * Partial thromboplastin time, activated (11/12/2017 8:30 PM CDT) [facility] PTT 30.9 23.0 - 36.0 sec [facility] DEPARTMENT Comment: OF PATHOLOGY PTT therapeutic range for [facility] GENOMIC unfractionated heparin is MEDICINE 61.0-112.0 seconds which corresponds to Anti-Xa 0.3-0.7 U/ml. Specimen Blood Performing Organization Address [facility] Centercode Phone Number [facility] [place] [address] PATHOLOGY AND GENOMIC MEDICINE * Prothrombin time with INR (11/12/2017 8:30 PM CDT) Only the most recent of 2 results within the time period is included. Pathologist [facility] Prothrombin 20.0 (H) 12.0 - 15.0 sec [facility] DEPARTMENT time OF PATHOLOGY AND GENOMIC MEDICINE INR 1.7 [facility] DEPARTMENT Comment: OF PATHOLOGY The International Normalized AND GENOMIC Ratio (INR) is a therapeutic MEDICINE monitoring tool for patients who are stable on oral anticoagulant therapy. An INR of 2.0-3.0 is suggested for deep vein thrombosis/pulmonary embolism. Specimen Blood Performing Organization Address City/[facility]/Zipcode Phone Number [facility] [place] [address] PATHOLOGY AND GENOMIC MEDICINE * Arterial blood gas (11/12/2017 8:30 PM CDT) Pathologist [facility] pH, arterial 7.45 7.35 - 7.45 [facility] DEPARTMENT OF PATHOLOGY AND GENOMIC MEDICINE pCO2, arterial 31 (L) 35 - 45 mmHg [facility] DEPARTMENT OF PATHOLOGY AND GENOMIC MEDICINE pO2, arterial 206 (H) 80 - 90 mmHg [facility] DEPARTMENT OF PATHOLOGY AND GENOMIC MEDICINE Bicarbonate, 21.0 21.0 - 28.0 mmol/L [facility] DEPARTMENT arterial OF PATHOLOGY AND GENOMIC MEDICINE Base excess, -2 -2 - 2 mEq/L [facility] DEPARTMENT arterial OF PATHOLOGY AND GENOMIC MEDICINE O2 saturation, 99 95 - 100 % [facility] DEPARTMENT arterial OF PATHOLOGY AND GENOMIC MEDICINE Specimen Blood Performing Organization Address City/[facility]ercode Phone Number [facility] [place] [address] PATHOLOGY AND GENOMIC MEDICINE * Sodium level, syringe (11/12/2017 7:10 PM CDT) Only the most recent of 6 results within the time period is included. Sodium, syringe 135 135 - 148 mEq/L [facility] DEPARTMENT OF PATHOLOGY AND GENOMIC MEDICINE Specimen Blood Performing Organization Address City/[facility]ercode Phone Number [facility] [place] [address] PATHOLOGY AND GENOMIC MEDICINE * Potassium, syringe (11/12/2017 7:10 PM CDT) Only the most recent of 6 results within the time period is included. Potassium, 3.5 3.5 - 5.0 mEq/L [facility] DEPARTMENT syringe OF PATHOLOGY AND GENOMIC MEDICINE Specimen Blood Performing Organization Address [facility] [place] [address] PATHOLOGY AND GENOMIC MEDICINE * Hemoglobin, syringe (11/12/2017 7:10 PM CDT) Only the most recent of 6 results within the time period is included. Hemoglobin, 9.5 (L) 14.0 - 18.0 g/dL [facility] DEPARTMENT syringe OF PATHOLOGY AND GENOMIC MEDICINE Specimen Blood Performing Organization Address City/[facility]ercode Phone Number [facility] [place] [address] PATHOLOGY AND GENOMIC MEDICINE * Glucose level, syringe (11/12/2017 7:10 PM CDT) Only the most recent of 6 results within the time period is included. Glucose, 209 (H) 65 - 99 mg/dL [facility] DEPARTMENT syringe OF PATHOLOGY AND GENOMIC MEDICINE Specimen Blood Performing Organization Address [facility] [place] [address] PATHOLOGY AND GENOMIC MEDICINE * Arterial blood gas, corrected (11/12/2017 7:10 PM CDT) Only the most recent of 6 results within the time period is included. pH, arterial 7.42 7.35 - 7.45 [facility] DEPARTMENT OF PATHOLOGY AND GENOMIC MEDICINE pCO2, arterial 35 35 - 45 mmHg [facility] DEPARTMENT OF PATHOLOGY AND GENOMIC MEDICINE pO2, arterial 366 (H) 80 - 90 mmHg [facility] DEPARTMENT OF PATHOLOGY AND GENOMIC MEDICINE Temperature, 37.0 Degrees C [facility] DEPARTMENT Cels[employer] OF PATHOLOGY AND GENOMIC MEDICINE O2 saturation, 100 95 - 100 % [facility] DEPARTMENT arterial OF PATHOLOGY AND GENOMIC MEDICINE pH, arterial 7.42 [facility] DEPARTMENT corrected OF PATHOLOGY AND GENOMIC MEDICINE pCO2, arterial 35 mmHg [facility] DEPARTMENT corrected OF PATHOLOGY AND GENOMIC MEDICINE pO2, arterial 366 mmHg [facility] DEPARTMENT corrected OF PATHOLOGY AND GENOMIC MEDICINE Base excess, -2 -2 - 2 mEq/L [facility] DEPARTMENT arterial OF PATHOLOGY AND GENOMIC MEDICINE Specimen Blood Performing Organization Address City/[facility]ercode Phone Number [facility] [place] [address] PATHOLOGY AND GENOMIC MEDICINE * Lactic acid, syringe (11/12/2017 6:32 PM CDT) Only the most recent of 2 results within the time period is included. Lactic acid, 2.0 0.5 - 2.2 mmol/L [facility] DEPARTMENT syringe OF PATHOLOGY AND GENOMIC MEDICINE Specimen Blood Performing Organization Address City/[facility] [place] [address] PATHOLOGY AND GENOMIC MEDICINE * Fibrinogen (11/12/2017 6:32 PM CDT) Fibrinogen 184 (L) 200 - 450 mg/dL [facility] DEPARTMENT OF PATHOLOGY AND GENOMIC MEDICINE Specimen Blood Performing Organization Address City/State/[facility] Phone Number [facility] [place] [address] PATHOLOGY AND GENOMIC MEDICINE * Platelet count (11/12/2017 6:32 PM CDT) Platelet count 96 (L) 150 - 400 k/uL [facility] DEPARTMENT OF PATHOLOGY AND GENOMIC MEDICINE Specimen Performing Organization Address City/[facility] [place] [address] PATHOLOGY AND GENOMIC MEDICINE after 11/12/2017 Insurance Type Payer Benefit Subscriber ID Effective Phone Address Plan / Dates Group HMO [employer] 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 For more information, elvira hinson contact: [place] [address] [place] [address]
[2018-11-13] MEDS ORDERED: CEFAZOLIN SOD 1 GM/NS 50ML 100 ML IV ONE (11:07)
[2018-11-13] MEDS ORDERED: B&O 60MG R/S 60 MG SUPP PR ONE (14:15)
[2018-11-13] MEDS ORDERED: FENTANYL CITRATE/PF 100MCG/2 ML INJ ONE (14:36)
[2018-11-13] MEDS ORDERED: MIDAZOLAM HCL 2 MG/2 ML VIAL ONE (14:36)
--- OUTSIDE RECORDS SUMMARY | 2018-11-13 14:49 | XMS REPORT | Clinical Summary ---
Author Author [facility] Address Unknown Phone Unavailable Care Team Providers Care Manager Ambulatory Name Role Phone Asked, No Pcp PCP [...] Tmpry Cardiovasc N/A: N/A [employer] Streamline - [id number] [facility] - Implanted: 11/12/2017 (Quantity not Implants CARDIAC on file) SRGRY 02/27/2022 [id number] / / [id number] Drain Fluted Full Chnl Silicone Rnd Surgical N/A: N/A CR BARD Hubless 19fr 1/4in 6.3mm - Implants; [id number] Expanders; Implanted: 11/12/2017 (Quantity not Extenders; on file) Surgical Wires 02/27/2022 [id number] / / [id number] Drain Fluted Full Chnl Silicone Rnd Surgical N/A: N/A CR BARD Hubless 19fr 1/4in 6.3mm - Implants; [id number] Expanders; Implanted: 11/12/2017 (Quantity not Extenders; on file) Surgical Wires 05/27/2022 [id number] / / [id number] [place] Perph Vasclr Ptfe 1.2x10cm Vascular N/A: N/A BARD 1.65mm - [id number] Graft PERIPHERAL Implanted: 11/12/2017 (Quantity not VASCULAR [...] Inferior: normal 16- Apical Septal: normal 17- [place]: normal Valves Aortic Valve: Annulus normal. Stenosis [...] solutions labeled Procedure details: PA Catheter Type: CLINICAL LAB ASSISTANT PA Catheter Size: 9 PA Catheter Side: [...] to thread cath. Elect brachial to left MN AN ELECTIVE Routine 11/12/2017 ENDOTRACHEAL AIRWAY 1:35 [...] results within the time period is included. [facility] POC glucose 289 (H) 65 - 99 mg/dL [facility] DEPARTMENT Comment: OF PATHOLOGY Meter ID: [id number] AND GENOMIC Social Services Director: Arron ALEX Specimen Performing Organization Address City/State/[facility] Cent[facility] Phone Number [facility] DEPARTMENT OF [address] [place] [address] PATHOLOGY AND GENOMIC MEDICINE * CBC with platelet and differential (11/17/2017 4:45 AM CDT) Only the most recent of 3 results within the time period is included. Pathologist [facility] WBC 9.33 4.50 - 11.00 k/uL [facility] DEPARTMENT OF PATHOLOGY AND GENOMIC MEDICINE RBC 3.34 (L) 4.40 - 6.00 m/uL [facility] DEPARTMENT OF PATHOLOGY AND GENOMIC MEDICINE HGB 8.7 (L) 14.0 - 18.0 g/dL [facility] DEPARTMENT OF PATHOLOGY AND GENOMIC MEDICINE HCT 26.6 (L) 41.0 - 51.0 % [facility] DEPARTMENT OF PATHOLOGY AND GENOMIC MEDICINE MCV 79.6 (L) 82.0 - 100.0 fL [facility] DEPARTMENT OF PATHOLOGY AND GENOMIC MEDICINE MCH 26.0 (L) 27.0 - 34.0 pg [facility] DEPARTMENT OF PATHOLOGY AND GENOMIC MEDICINE MCHC 32.7 31.0 - 37.0 g/dL [facility] DEPARTMENT OF PATHOLOGY AND GENOMIC MEDICINE RDW - SD 50.1 37.0 - 55.0 fL [facility] DEPARTMENT OF PATHOLOGY AND GENOMIC MEDICINE MPV 9.7 8.8 - 13.2 fL [facility] DEPARTMENT OF PATHOLOGY AND GENOMIC MEDICINE Platelet count 209 150 - 400 k/uL [facility] DEPARTMENT OF PATHOLOGY AND GENOMIC MEDICINE Nucleated RBC 0.00 /100 WBC [facility] DEPARTMENT OF PATHOLOGY AND GENOMIC MEDICINE Neutrophils 69.4 (H) 39.0 - 69.0 % [facility] DEPARTMENT OF PATHOLOGY AND GENOMIC MEDICINE Lymphocytes 14.5 (L) 25.0 - 45.0 % [facility] DEPARTMENT OF PATHOLOGY AND GENOMIC MEDICINE Monocytes 12.5 (H) 0.0 - 10.0 % [facility] DEPARTMENT OF PATHOLOGY AND GENOMIC MEDICINE Eosinophils 2.8 0.0 - 5.0 % [facility] DEPARTMENT OF PATHOLOGY AND GENOMIC MEDICINE Basophils 0.4 0.0 - 1.0 % [facility] DEPARTMENT OF PATHOLOGY AND GENOMIC MEDICINE Immature 0.4Comment: "Immature 0.0 - 1.0 % [facility] DEPARTMENT granulocytes granulocytes" (promyelocytes, OF PATHOLOGY myelocytes, metamyelocytes) AND GENOMIC MEDICINE Specimen Blood Performing Organization Address City/State/[facility] Cent[facility]ode Phone Number [facility] DEPARTMENT OF [address] [place] [address] PATHOLOGY AND GENOMIC [facility] * Estimated GFR (11/17/2017 4:00 AM CDT) Only the most recent of 6 results within the time period is included. GFR Non Af Amer >90 mL/min/1.73 m2 [facility] DEPARTMENT OF PATHOLOGY AND GENOMIC MEDICINE GFR Af Amer >90 mL/min/1.73 m2 [facility] DEPARTMENT Comment: OF PATHOLOGY Chronic kidney [...] specimen Performing Organization Address City/State/Zipcode Phone Number [facility] [place] [place] [address] PATHOLOGY AND GENOMIC MEDICINE * Magnesium level (11/17/2017 4:00 AM CDT) Only the most recent of 8 results within the time period is included. Pathologist [facility] Magnesium 1.8 1.6 - 2.4 mg/dL [facility] DEPARTMENT OF PATHOLOGY AND GENOMIC MEDICINE Specimen Plasma specimen Performing Organization Address [facility] [place] [address] PATHOLOGY AND GENOMIC MEDICINE * Basic metabolic panel (11/17/2017 4:00 AM CDT) Only the most recent of 6 results within the time period is included. Sodium 133 (L) 135 - 148 mEq/L [facility] DEPARTMENT OF PATHOLOGY AND GENOMIC MEDICINE Potassium 3.8 3.5 - 5.0 mEq/L [facility] DEPARTMENT OF PATHOLOGY AND GENOMIC MEDICINE Chloride 95 (L) 98 - 112 mEq/L [facility] DEPARTMENT OF PATHOLOGY AND GENOMIC MEDICINE CO2 26 24 - 31 mEq/L [facility] DEPARTMENT OF PATHOLOGY AND GENOMIC MEDICINE Anion gap 12@ANIO 7 - 15 mEq/L [facility] DEPARTMENT OF PATHOLOGY AND GENOMIC MEDICINE BUN 13 8 - 23 mg/dL [facility] DEPARTMENT OF PATHOLOGY AND GENOMIC MEDICINE Creatinine 0.6 (L) 0.7 - 1.2 mg/dL [facility] DEPARTMENT OF PATHOLOGY AND GENOMIC MEDICINE Glucose 95 65 - 99 mg/dL [facility] DEPARTMENT OF PATHOLOGY AND GENOMIC MEDICINE Calcium 8.5 (L) 8.8 - 10.2 mg/dL [facility] DEPARTMENT OF PATHOLOGY AND GENOMIC MEDICINE Specimen Plasma specimen Performing Organization Address [facility] Centercosc Phone Number [facility] [place] [address] PATHOLOGY AND GENOMIC MEDICINE * XR Chest 1 Vw Portable (11/16/2017 1:34 PM CDT) Only the most recent of 4 results within the time period is included. Specimen Narrative Performed At EXAMINATION:[facility]:Shortness of breath COMPARISON:November 13, 2017 IMPRESSION: Changes related to midline sternotomy are noted.There is thoracic scoliosis. Heart size is the upper is normal.Pulmonary vessels are congested bilaterally with some minimal interstitial infiltrates.There is blunting of the costophrenic sulcus and atelectasis at the left lung base.There appear to be subacute left rib fractures with callus formation. [facility]-[id number] Procedure Note Hm Interface, Radiology Results Incoming [...] subacute left rib fractures with callus formation. [facility]-[id number] Performing Organization Address City/[facility]/Zipcode Phone Number [address] [address] * CBC hemogram (11/15/2017 3:03 AM CDT) Only the most recent of 3 results within the time period is included. WBC 12.75 (H) 4.50 - 11.00 k/uL [facility] DEPARTMENT OF PATHOLOGY AND GENOMIC MEDICINE RBC 3.38 (L) 4.40 - 6.00 m/uL [facility] DEPARTMENT OF PATHOLOGY AND GENOMIC MEDICINE HGB 8.7 (L) 14.0 - 18.0 g/dL [facility] DEPARTMENT OF PATHOLOGY AND GENOMIC MEDICINE HCT 27.3 (L) 41.0 - 51.0 % [facility] DEPARTMENT OF PATHOLOGY AND GENOMIC MEDICINE MCV 80.8 (L) 82.0 - 100.0 fL [facility] DEPARTMENT OF PATHOLOGY AND GENOMIC MEDICINE MCH 25.7 (L) 27.0 - 34.0 pg [facility] DEPARTMENT OF PATHOLOGY AND GENOMIC MEDICINE MCHC 31.9 31.0 - 37.0 g/dL [facility] DEPARTMENT OF PATHOLOGY AND GENOMIC MEDICINE RDW - SD 50.6 37.0 - 55.0 fL [facility] DEPARTMENT OF PATHOLOGY AND GENOMIC MEDICINE MPV 9.8 8.8 - 13.2 fL [facility] DEPARTMENT OF PATHOLOGY AND GENOMIC MEDICINE Platelet count 120 (L) 150 - 400 k/uL [facility] DEPARTMENT OF PATHOLOGY AND GENOMIC MEDICINE Nucleated RBC 0.00 /100 WBC [facility] DEPARTMENT OF PATHOLOGY AND GENOMIC MEDICINE Specimen Blood Performing Organization Address City/[facility]/Zipcode Phone Number [address] [address] PATHOLOGY AND GENOMIC MEDICINE * Phosphorus level (11/15/2017 12:00 AM CDT) Only the most recent of 4 results within the time period is included. Phosphorus 2.2 (L) 2.4 - 4.5 mg/dL [facility] DEPARTMENT OF PATHOLOGY AND GENOMIC MEDICINE Specimen Plasma specimen Performing Organization Address [facility] [place] [address] PATHOLOGY AND [facility] MEDICINE * Ionized calcium (11/15/2017 12:00 AM CDT) Only the most recent of 3 results within the time period is included. pH 7.57 [facility] DEPARTMENT OF PATHOLOGY AND GENOMIC MEDICINE Ionized calcium 1.06 (L) 1.11 - 1.32 mmol/L [facility] DEPARTMENT PATHOLOGY [employer] [facility] [employer] GENOMIC MEDICINE Specimen Plasma specimen Performing Organization Address [facility] Phone Number [facility] [place] [address] PATHOLOGY [facility] MEDICINE * ECG 12 lead (11/14/2017 6:14 AM CDT) Only the most recent of 3 results within the time period is included. Ventricular 82 [facility] MUSE rate Atrial rate 82 [facility] MUSE MN interval 174 [facility] QRSD interval 82 [facility] M[facility] QT interval 382 [facility] M[facility] QTC interval 446 [facility] MUSE P axis 1 32 [facility] MUSE QRS axis 1 33 [facility] MUSE T wave axis 32 [facility] MUSE EKG impression Normal sinus rhythm-Possible [facility] MUSE Inferior infarct , age undetermined-Abnormal ECG-In automated comparison with ECG of 13-NOV-2017 05:44,-No significant change was found- Specimen Performing Organization Address [facility] [place] [address] * Potassium level (11/13/2017 4:40 PM CDT) Potassium 4.0 3.5 - 5.0 mEq/L [facility] DEPARTMENT OF PATHOLOGY AND GENOMIC MEDICINE Specimen Plasma specimen Performing Organization Address [facility] [place] [address] PATHOLOGY AND [facility] MEDICINE * O2 saturation, venous (11/13/2017 4:00 AM CDT) Hemoglobin, 9.9 (L) 14.0 - 18.0 g/dL [facility] DEPARTMENT venous, syringe OF PATHOLOGY AND GENOMIC MEDICINE O2 saturation, 73 (H) 40 - 70 % [facility] DEPARTMENT venous OF PATHOLOGY AND GENOMIC MEDICINE Specimen Blood Performing Organization Address City/[facility] [place] [address] PATHOLOGY AND GENOMIC MEDICINE * Ionized calcium, arterial (11/12/2017 8:30 PM CDT) Only the most recent of 7 results within the time period is included. Pathologist [facility] Ionized 1.18 1.11 - 1.32 mmol/L [facility] DEPARTMENT calcium, OF PATHOLOGY arterial AND GENOMIC MEDICINE Specimen Blood Performing Organization Address [facility] [place] [address] PATHOLOGY AND [facility] MEDICINE * Partial thromboplastin time, activated (11/12/2017 8:30 PM CDT) [facility] PTT 30.9 23.0 - 36.0 sec [facility] DEPARTMENT Comment: OF PATHOLOGY PTT therapeutic range for [employer] [facility] GENOMIC unfractionated heparin is MEDICINE 61.0-112.0 seconds which corresponds to Anti-Xa 0.3-0.7 U/ml. Specimen Blood Performing Organization Address [facility] Centercode Phone Number [facility] [place] [address] PATHOLOGY AND GENOMIC MEDICINE * Prothrombin time with INR (11/12/2017 8:30 PM CDT) Only the most recent of 2 results within the time period is included. Pathologist [facility] Prothrombin 20.0 (H) 12.0 - 15.0 sec [facility] DEPARTMENT time OF PATHOLOGY AND GENOMIC MEDICINE INR 1.7 [facility] DEPARTMENT Comment: OF PATHOLOGY The International Normalized AND GENOMIC Ratio (INR) is a therapeutic MEDICINE monitoring tool for patients who are stable on oral anticoagulant therapy. An INR of 2.0-3.0 is suggested for deep vein thrombosis/pulmonary embolism. Specimen Blood Performing Organization Address City/[facility]/Zipcode Phone Number [facility] [place] [address] PATHOLOGY AND GENOMIC MEDICINE * Arterial blood gas (11/12/2017 8:30 PM CDT) Pathologist [facility] pH, arterial 7.45 7.35 - 7.45 [facility] DEPARTMENT OF PATHOLOGY AND GENOMIC MEDICINE pCO2, arterial 31 (L) 35 - 45 mmHg [facility] DEPARTMENT OF PATHOLOGY AND GENOMIC MEDICINE pO2, arterial 206 (H) 80 - 90 mmHg [facility] DEPARTMENT OF PATHOLOGY AND GENOMIC MEDICINE Bicarbonate, 21.0 21.0 - 28.0 mmol/L [facility] DEPARTMENT arterial OF PATHOLOGY AND GENOMIC MEDICINE Base excess, -2 -2 - 2 mEq/L [facility] DEPARTMENT arterial OF PATHOLOGY AND GENOMIC MEDICINE O2 saturation, 99 95 - 100 % [facility] DEPARTMENT arterial OF PATHOLOGY AND GENOMIC MEDICINE Specimen Blood Performing Organization Address City/[facility] Centercode Phone Number [facility] [place] [address] PATHOLOGY AND GENOMIC MEDICINE * Sodium level, syringe (11/12/2017 7:10 PM CDT) Only the most recent of 6 results within the time period is included. Sodium, syringe 135 135 - 148 mEq/L [facility] DEPARTMENT OF PATHOLOGY AND GENOMIC MEDICINE Specimen Blood Performing Organization Address City/[facility]ercode Phone Number [facility] [place] [address] PATHOLOGY AND GENOMIC MEDICINE * Potassium, syringe (11/12/2017 7:10 PM CDT) Only the most recent of 6 results within the time period is included. Potassium, 3.5 3.5 - 5.0 mEq/L [facility] DEPARTMENT syringe OF PATHOLOGY AND GENOMIC MEDICINE Specimen Blood Performing Organization Address [facility] [place] [address] PATHOLOGY AND GENOMIC MEDICINE * Hemoglobin, syringe (11/12/2017 7:10 PM CDT) Only the most recent of 6 results within the time period is included. Hemoglobin, 9.5 (L) 14.0 - 18.0 g/dL [facility] DEPARTMENT syringe OF PATHOLOGY AND GENOMIC MEDICINE Specimen Blood Performing Organization Address City/[facility]ercode Phone Number [facility] [place] [address] PATHOLOGY AND GENOMIC MEDICINE * Glucose level, syringe (11/12/2017 7:10 PM CDT) Only the most recent of 6 results within the time period is included. Glucose, 209 (H) 65 - 99 mg/dL [facility] DEPARTMENT syringe OF PATHOLOGY AND GENOMIC MEDICINE Specimen Blood Performing Organization Address [facility] [place] [address] PATHOLOGY AND GENOMIC MEDICINE * Arterial blood gas, corrected (11/12/2017 7:10 PM CDT) Only the most recent of 6 results within the time period is included. pH, arterial 7.42 7.35 - 7.45 [facility] DEPARTMENT OF PATHOLOGY AND GENOMIC MEDICINE pCO2, arterial 35 35 - 45 mmHg [facility] DEPARTMENT OF PATHOLOGY AND GENOMIC MEDICINE pO2, arterial 366 (H) 80 - 90 mmHg [facility] DEPARTMENT OF PATHOLOGY AND GENOMIC MEDICINE Temperature, 37.0 Degrees C [facility] DEPARTMENT Celsius OF PATHOLOGY AND GENOMIC MEDICINE O2 saturation, 100 95 - 100 % [facility] DEPARTMENT arterial OF PATHOLOGY AND GENOMIC MEDICINE pH, arterial 7.42 [facility] DEPARTMENT corrected OF PATHOLOGY AND GENOMIC MEDICINE pCO2, arterial 35 mmHg [facility] DEPARTMENT corrected OF PATHOLOGY AND GENOMIC MEDICINE pO2, arterial 366 mmHg [facility] DEPARTMENT corrected OF PATHOLOGY AND GENOMIC MEDICINE Base excess, -2 -2 - 2 mEq/L [facility] DEPARTMENT arterial OF PATHOLOGY AND GENOMIC MEDICINE Specimen Blood Performing Organization Address City/[facility]ercode Phone Number [facility] [place] [address] PATHOLOGY AND GENOMIC MEDICINE * Lactic acid, syringe (11/12/2017 6:32 PM CDT) Only the most recent of 2 results within the time period is included. Lactic acid, 2.0 0.5 - 2.2 mmol/L [facility] DEPARTMENT syringe OF PATHOLOGY AND GENOMIC MEDICINE Specimen Blood Performing Organization Address City/[facility] [place] [address] PATHOLOGY AND GENOMIC MEDICINE * Fibrinogen (11/12/2017 6:32 PM CDT) Fibrinogen 184 (L) 200 - 450 mg/dL [facility] DEPARTMENT OF PATHOLOGY AND GENOMIC MEDICINE Specimen Blood Performing Organization Address City/State/[facility]ercode Phone Number [facility] [place] [address] PATHOLOGY AND GENOMIC MEDICINE * Platelet count (11/12/2017 6:32 PM CDT) Platelet count 96 (L) 150 - 400 k/uL [facility] DEPARTMENT OF PATHOLOGY AND GENOMIC MEDICINE Specimen Performing Organization Address City/[facility] [place] [address] PATHOLOGY AND GENOMIC MEDICINE after 11/12/2017 Insurance Type Payer Benefit Subscriber ID Effective Phone Address Plan / Dates Group HMO [employer] CIGNA xxxxxxxxxxx [id number] [facility] Advance Directives Patient has advance care planning documents on file. For more information, elvira hinson contact: [facility] [place] [address] [place] [address]
[2018-11-13] MEDS ORDERED: LACTATED RINGER'S 1,000 ML IV ONE (15:00)
--- NOTE | 2018-11-13 15:00 | NUR ---
report received from PACU, patient to arrive via stretcher, alert and oriented with at bedside.
--- NOTE | 2018-11-13 15:29 | NUR ---
patient arrived on unit via stretcher, alert and oriented. at bedside, call urbina within reach and bed in lowest position
[2018-11-13 15:51] LABS: BLOOD UREA NITROGEN 18 mg/dL (7-26); BUN/CREATININE RATIO 23 (6-25); CALCIUM 9.4 mg/dL (8.4-10.2); CARBON DIOXIDE 25 mmol/L (22-29); CHLORIDE 99 mmol/L (98-107); CREATININE, SERUM 0.79 mg/dL (0.72-1.25); EST GLOMERULAR FILTRATION RATE > 60 ML/MIN (60-); GLUCOSE 169 mg/dL (74-118); SODIUM 134 mmol/L (136-145)
[2018-11-13 15:57] VITALS: BP 136/62
[2018-11-13 16:07] VITALS: BP 136/62
[2018-11-13 16:13] VITALS: BP 136/62
[2018-11-13] MEDS ORDERED: FERROUS SULFATE 300 MG/5 ML LIQD PEG SCH (17:00)
[2018-11-13] MEDS ORDERED: METFORMIN HCL 850 MG TAB PO SCH (17:00)
[2018-11-13] MEDS ORDERED: FERROUS SULFATE 300 MG/5 ML LIQD PO SCH (17:00)
[2018-11-13] MEDS ORDERED: INSULIN SC SCH ×2 (17:00)
[2018-11-13] MEDS ORDERED: HUMULIN 70/30 VIAL SQ SCH (17:00)
[2018-11-13] MEDS: METFORMIN HCL 500 MG TAB PO SCH (17:13)
[2018-11-13] MEDS: FERROUS SULFATE 325 MG TAB PO SCH (17:13)
[2018-11-13] MEDS: HUMULIN 70/30 VIAL SQ SCH (17:13)
[2018-11-13] MEDS: METOPROLOL TARTRATE 25 MG TAB PO SCH (17:13)
[2018-11-13] MEDS ORDERED: ONDANSETRON HCL INJ 2MG/ML 2ML 2 MG/ML VIAL ONE (18:42)
[2018-11-13] MEDS ORDERED: LIDOCAINE HCL 2% LOCAL INJ 5 ML SDV VIAL INJ ONE (18:42)
[2018-11-13] MEDS ORDERED: EPHEDRINE SULFATE INJ 50 MG/10 ML SYR ONE (18:42)
[2018-11-13] MEDS ORDERED: SEVOFLURANE INHAL SOLN 250 ML PEN BTL ONE (18:42)
[2018-11-13] MEDS ORDERED: PROPOFOL IV EMULSION 10 MG/ML 20 ML VIAL ONE (18:42)
[2018-11-13] MEDS ORDERED: DEXAMETHASONE SOD PHOS INJ 4 MG/ML VIAL ONE (18:42)
--- NOTE | 2018-11-13 18:47 | NUR ---
rounded with coffee grower nurse, patient aware of change and in no distress. call urbina within reach and bed in lowest position.
[2018-11-13 19:09] VITALS: BP 136/62
[2018-11-13] MEDS: CEPHALEXIN 500 MG CAP PO SCH (20:08)
[2018-11-13 20:20] VITALS: BP 143/64
--- NOTE | 2018-11-13 20:28 | Operative Report ---
DATE OF PROCEDURE: 11/13/2018 SURGEON: Romario Watts MD PREOPERATIVE DIAGNOSIS: Benign prostatic hypertrophy. POSTOPERATIVE DIAGNOSES: 1. Urethral stenosis and stricture. 2. Benign prostatic hypertrophy. OPERATION PERFORMED: Urethral dilatation, cystoscopy, and transurethral resection of the prostate. ANESTHESIOLOGIST: Staff. ANESTHESIA: General. FINDINGS: The patient had a normal urethra to deep bulbar membranous where stricture was found. This was dilated satisfactory from 22-28 Bakari sound. Cystoscopy was performed. Large intravesical component of the prostate was identified with grade 2-3 trabeculation, cellules and saccules and polyps around the verumontanum. No tumors or stones were seen within the bladder. PROCEDURE IN DETAIL: With the patient under satisfactory general anesthesia, the patient was placed in the supine position on the operating table. Legs were placed on stirrups. Genitalia was prepped with pHisoHex solution and draped in the usual manner. Time-out was obtained and all agreed with the procedure as planned. The cystoscope was placed in the urethra, stenosis and stricture of the deep bulbar membranous urethra was found, this was dilated satisfactorily. At that point, examination of the bladder was done with the cystoscope and findings as dictated above. Cystoscope was removed and replaced with a continuous flow bipolar machine. Resection was started at the bladder neck and carried to the verumontanum using the loop electrode. The Ellik evacuator was used to remove all prostate chips from the bladder and the button electrode was used to electro-fulgurating to obtain good hemostasis. The patient then had a 22-Malagasy Campbell catheter placed in the bladder using the catheter introducer, the bladder was irrigated until the return was clear. The B and O suppository were placed in the rectum. The patient was taken to the recovery room in satisfactory condition. DISCHARGE INSTRUCTIONS: The patient was given Cipro to take b.i.d. and he was also given tramadol for pain that he is to take 1 to 2 tablets as needed for pain. The patient was kept overnight for observation. The bladder was irrigated as needed and he was given pain medication. The next day, the patient was stable and met discharge criteria, he was sent home. He will be in my office Sunday morning to remove Campbell catheter. He was given leg bag and overnight bag and was instructed how to empty the bags. If the patient needs to stay an extra night, a separate dictation will be made to explain why the patient stayed in the hospital and what was done about it. MD SILVERIO Brody/MODL /[id number]
[2018-11-13] MEDS ORDERED: ATORVASTATIN 20 MG TAB PO SCH (21:00)
[2018-11-13] MEDS ORDERED: ATORVASTATIN 40 MG TAB PO SCH (21:00)
[2018-11-14 00:12] VITALS: BP 129/59
[2018-11-14 04:57] VITALS: BP 125/62
[2018-11-14] MEDS ORDERED: LEVOTHYROXINE SODIUM 50 MCG TAB PO SCH ×2 (06:00→09:00)
--- NOTE | 2018-11-14 07:00 | NUR ---
RECEIVED BEDSIDE SHIFT REPORT FROM NIGHT RN. PT DENIES NEEDS AT THIS TIME.
[2018-11-14 08:00] VITALS: BP 134/63
[2018-11-14] MEDS: FERROUS SULFATE 325 MG TAB PO SCH (08:00)
[2018-11-14] MEDS: METFORMIN HCL 500 MG TAB PO SCH (08:00)
[2018-11-14] MEDS: CEPHALEXIN 500 MG CAP PO SCH (08:00)
[2018-11-14] MEDS: METOPROLOL TARTRATE 25 MG TAB PO SCH (08:01)
[2018-11-14] MEDS: HUMULIN 70/30 VIAL SQ SCH (08:02)
[2018-11-14] MEDS ORDERED: NON-FORMULARY MEDICATION (Lisinopril 5 MG) PO SCH (09:00)
[2018-11-14] MEDS ORDERED: NON-FORMULARY MEDICATION (Amlodipine Besylate/Benazepril (Amlodipine-Benazepril 5-20 Mg) 1 PO SCH (09:00)
[2018-11-14] MEDS ORDERED: PANTOPRAZOLE SOD 40 MG TABEC PO SCH (09:00)
[2018-11-14] MEDS ORDERED: LISINOPRIL 10 MG TAB PO SCH (09:00)
[2018-11-14] MEDS ORDERED: AMLODIPINE BESYLATE 5 MG TAB PO SCH (09:00)
[2018-11-14] MEDS ORDERED: BENAZEPRIL HCL 10 MG TAB PO SCH (09:00)
[2018-11-14 12:00] VITALS: BP 129/60
[2019-01-01] MEDS ORDERED: SOLIQUA SQ (11:37)
[2019-01-01] MEDS ORDERED: CLOPIDOGREL75 MG PO (11:37)
== END 2018-11-14 13:22 | disposition home or self-care (01) ==
LOC: OR 10:39 → PACU V 14:40 → IMCU 15:33
PROVIDERS: ADMIT Urology; ATTEND Urology
DX: N40.1 Benign prostatic hyperplasia with lower urinary tract symptoms (principal); R39.14 Feeling of incomplete bladder emptying; R35.1 Nocturia; R39.12 Poor urinary stream
CPT/HCPCS: 36415 ×3; 50436; 52601; 71046; 80048; 80053; 82948 ×2; 85025; 87086; 88305; 93005; G0378 ×2; J0690; J2250; J3010; S0164; J1100; J2001; J2405

== ENCOUNTER → 2019-01-03 | Day surgery (SDC) | payer MEDICARE ==
[2019-01-01 12:33] LABS: BASOPHILS % 0.4 % (0.0-1.0); EOSINOPHILS # (AUTO) 0.2 (0.0-0.4); EOSINOPHILS % 2.2 % (0.0-6.0); HEMATOCRIT 39.1 % (38.2-49.6); HEMOGLOBIN 13.4 g/dL (14.0-18.0); LYMPHOCYTES # (AUTO) 1.4 (1.0-3.2); LYMPHOCYTES % 18.2 % (18.0-39.1); MEAN CORPUSCULAR HEMOGLOBIN 29.5 pg (28-32); MEAN CORPUSCULAR HGB CONC 34.3 g/dL (31-35); MEAN CORPUSCULAR VOLUME 86.1 fL (81-99); MONOCYTES # (AUTO) 0.8 (0.2-0.8); MONOCYTES % 10.3 % (4.4-11.3); NEUTROPHILS # (AUTO) 5.3 (2.1-6.9); NEUTROPHILS % 68.6 % (38.7-80.0); PLATELET COUNT 250 x10e3/uL (140-360); RED BLOOD COUNT 4.54 x10e6/uL (4.3-5.7); RED CELL DISTRIBUTION WIDTH 13.2 % (11.7-14.4)
[~2019-01-03] MED LIST changes: +DEXTROSE 5% 250ML 250 ML IV ONE; +PROPOFOL IV EMULSION 10 MG/ML 20 ML VIAL ONE; +SOLIQUA SQ
--- OUTSIDE RECORDS SUMMARY | 2019-01-03 05:18 | XMS REPORT | Clinical Summary ---
Author Author [facility] Organization [facility] Address Unknown Phone Unavailable Care Team Providers Care Pipe Changer Name Role Phone Asked, No Pcp PCP [...] by 0 MG capsule mouth daily. 11/17/2018 atorvastatin (LIPITOR) 10 Take 1 tablet 90 tablet 0 MG tablet (10 mg total) 8 by mouth nightly. 02/15/2018 metoprolol tartrate Take 1 tablet 180 tablet 0 (LOPRESSOR) 25 mg tablet (25 mg total) 8 by mouth 2 (two) times a day for 90 days. 11/17/2018 ferrous sulfate 325 (65 Take 1 tablet 90 tablet 0 FE) MG tablet (325 mg 8 total) by mouth 2 (two) times a day with meals. 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 Last Filed Vital Signs Not on file Plan of Treatment Health Maintenance Due Date [...] Tmpry Cardiovasc N/A: N/A [employer] Streamline - [id number] [employer] - Implanted: 11/12/2017 at [facility] (Quantity not on file) SRGRY 02/27/2022 [id number] / / [id number] Drain Fluted Full Chnl Silicone Rnd Surgical N/A: N/A CR BARD Hubless 19fr 1/4in 6.3mm - Implants; [id number] Expanders; Implanted: 11/12/[address] [facility] (Quantity not on file) Surgical Wires 02/27/2022 [id number] / / [id number] Drain Fluted Full Chnl Silicone Rnd Surgical N/A: N/A CR BARD Hubless 19fr 1/4in 6.3mm - Implants; [id number] Expanders; Implanted: 11/12/[address] 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
[2019-01-03 07:50] VITALS: BP 116/75
== END | disposition home or self-care (01) ==
LOC: OR 05:17
PROVIDERS: ATTEND Internal Medicine Gastroenterology
DX: Z12.11 Encounter for screening for malignant neoplasm of colon (principal); Z86.010 Personal history of colon polyps; Z68.21 Body mass index [BMI] 21.0-21.9, adult; E10.9 Type 1 diabetes mellitus without complications; I10 Essential (primary) hypertension; Z71.3 Dietary counseling and surveillance; Z88.8 Allergy status to other drugs, medicaments and biological substances; I25.10 Atherosclerotic heart disease of native coronary artery without angina pectoris; Z95.1 Presence of aortocoronary bypass graft; K64.8 Other hemorrhoids
CPT/HCPCS: 36415 ×2; 45378; 82948; 85025; J2704; J7070

== ENCOUNTER → 2019-03-20 | Day surgery (SDC) | payer MEDICARE ==
[2019-03-17 11:06] LABS: BASOPHILS % 0.6 % (0.0-1.0); EOSINOPHILS # (AUTO) 0.1 (0.0-0.4); EOSINOPHILS % 1.9 % (0.0-6.0); HEMATOCRIT 40.4 % (38.2-49.6); HEMOGLOBIN 13.6 g/dL (14.0-18.0); LYMPHOCYTES # (AUTO) 1.5 (1.0-3.2); LYMPHOCYTES % 22.8 % (18.0-39.1); MEAN CORPUSCULAR HEMOGLOBIN 29.8 pg (28-32); MEAN CORPUSCULAR HGB CONC 33.7 g/dL (31-35); MEAN CORPUSCULAR VOLUME 88.4 fL (81-99); MONOCYTES # (AUTO) 0.8 (0.2-0.8); MONOCYTES % 11.9 % (4.4-11.3); NEUTROPHILS # (AUTO) 4.2 (2.1-6.9); NEUTROPHILS % 62.5 % (38.7-80.0); PLATELET COUNT 241 x10e3/uL (140-360); RED BLOOD COUNT 4.57 x10e6/uL (4.3-5.7); RED CELL DISTRIBUTION WIDTH 12.5 % (11.7-14.4)
[~2019-03-20] MED LIST changes: +METOCLOPRAMIDE10 MG PO
[2019-03-20 11:15] VITALS: BP 115/76
== END | disposition home or self-care (01) ==
LOC: OR 07:43
PROVIDERS: ATTEND Internal Medicine Gastroenterology
DX: K29.70 Gastritis, unspecified, without bleeding (principal); K22.2 Esophageal obstruction; K21.0 Gastro-esophageal reflux disease with esophagitis; K22.8 Other specified diseases of esophagus; K44.9 Diaphragmatic hernia without obstruction or gangrene; E10.9 Type 1 diabetes mellitus without complications; I10 Essential (primary) hypertension; I25.10 Atherosclerotic heart disease of native coronary artery without angina pectoris; I25.2 Old myocardial infarction; I44.0 Atrioventricular block, first degree; Z88.6 Allergy status to analgesic agent; Z01.810 Encounter for preprocedural cardiovascular examination; Z01.812 Encounter for preprocedural laboratory examination; Z79.02 Long term (current) use of antithrombotics/antiplatelets; Z79.84 Long term (current) use of oral hypoglycemic drugs; Z95.5 Presence of coronary angioplasty implant and graft
CPT/HCPCS: 36415 ×2; 43239; 43249; 82948; 85025; 88305; 88312; 93005; J2704; J7070; 43450

== ENCOUNTER → 2019-07-07 | Outpatient (CLI) | payer MEDICARE ==
[~2019-07-07] MED LIST changes: -DEXTROSE 5% 250ML 250 ML IV ONE; -PROPOFOL IV EMULSION 10 MG/ML 20 ML VIAL ONE
== END ==
LOC: RAD 13:55
PROVIDERS: ATTEND Internal Medicine
DX: I25.10 Atherosclerotic heart disease of native coronary artery without angina pectoris (principal)
CPT/HCPCS: 93306

== ENCOUNTER 2019-08-06 13:28 | Inpatient (IN) | payer MEDICARE, OTHER ==
[~2019-08-06] VITALS: Ht 154.2 cm; Wt 67.3 kg
[2019-08-06] MEDS ORDERED: ACETAMINOPHEN 325 MG TAB PO ONE (14:00)
[2019-08-06] MEDS: CEFTRIAXONE SOD 1 GM/NS 50 ML 50 ML IV ONE ×2 (14:15→14:30)
[2019-08-06 14:33] LABS: BASOPHILS % 0.1 % (0.0-1.0); HEMATOCRIT 31.4 % (38.2-49.6); HEMOGLOBIN 11.5 g/dL (14.0-18.0); LYMPHOCYTES # (AUTO) 0.6 (1.0-3.2); LYMPHOCYTES % 2.7 % (18.0-39.1); MEAN CORPUSCULAR HEMOGLOBIN 30.3 pg (28-32); MEAN CORPUSCULAR HGB CONC 36.6 g/dL (31-35); MEAN CORPUSCULAR VOLUME 82.8 fL (81-99); MONOCYTES # (AUTO) 2.7 (0.2-0.8); MONOCYTES % 11.9 % (4.4-11.3); NEUTROPHILS # (AUTO) 18.6 (2.1-6.9); NEUTROPHILS % 83.5 % (38.7-80.0); PLATELET COUNT 260 x10e3/uL (140-360); RED BLOOD COUNT 3.79 x10e6/uL (4.3-5.7); RED CELL DISTRIBUTION WIDTH 12.2 % (11.7-14.4)
[2019-08-06 14:39] LABS: STREPTOCOCCUS GRP A ANTIGEN NEGATIVE (NEGATIVE)
[2019-08-06 14:45] LABS: INR 1.09; PARTIAL THROMBOPLASTIN TIME 32.1 seconds (23.8-35.5); PROTHROMBIN TIME 14.8 seconds (11.9-14.5)
[2019-08-06 14:51] LABS: INFLUENZAE A&B ANTIGEN (RAPID) NEGATIVE (NEGATIVE)
[2019-08-06] MEDS ORDERED: SODIUM CHLORIDE 0.9% 1000ML 1,000 ML IV STA (14:52)
[2019-08-06 14:54] LABS: ALANINE AMINOTRANSFERASE 26 IU/L (0-55); ALBUMIN 3.6 g/dL (3.5-5.0); ALBUMIN/GLOBULIN RATIO 0.9 (0.8-2.0); ALKALINE PHOSPHATASE 100 IU/L (40-150); ANION GAP 15.5 mmol/L (8-16); BLOOD UREA NITROGEN 16 mg/dL (7-26); BUN/CREATININE RATIO 17 (6-25); CALCIUM 9.2 mg/dL (8.4-10.2); CARBON DIOXIDE 21 mmol/L (22-29); CHLORIDE 83 mmol/L (98-107); CREATINE KINASE 284 IU/L (30-200); CREATININE, SERUM 0.95 mg/dL (0.72-1.25); EST GLOMERULAR FILTRATION RATE > 60 ML/MIN (60-); GLUCOSE 358 mg/dL (74-118); POTASSIUM 4.5 mmol/L (3.5-5.1)
[2019-08-06 14:59] LABS: SODIUM 115 mmol/L (136-145)
[2019-08-06] MEDS ORDERED: AZITHROMYCIN 500MG/NS 250 ML 250 ML IV ONE (15:00)
[2019-08-06] MEDS ORDERED: FLOMAX0.4 MG PO (15:29)
[2019-08-06 15:43] LABS: CLARITY,URINE CLEAR (CLEAR); COLOR,URINE YELLOW (YELLOW); LEUKOCYTE ESTERASE ,URINE NEGATIVE (NEGATIVE); NITRITE,URINE NEGATIVE (NEGATIVE); PROTEIN,URINE DIPSTICK 2+ (NEGATIVE)
[2019-08-06 15:44] LABS: BILIRUBIN,URINE NEGATIVE (NEGATIVE); KETONES,URINE 1+ (NEGATIVE); URINE UROBILINOGEN 0.2 mg/dL (0.2 - 1)
[2019-08-06 15:47] LABS: BACTERIA,URINE MODERATE /HPF; EPITHELIAL CELLS,URINE FEW /LPF; RBC,URINE 21-50 /HPF (0-5)
[2019-08-06] MEDS ORDERED: ALBUTEROL SULFATE HFA 8GM INHALATION AEROSOL INH PRN (18:00)
[2019-08-06] MEDS ORDERED: DEXTROSE 50% SYRINGE 50 ML IV PRN (18:00)
[2019-08-06] MEDS ORDERED: ACETAMINOPHEN 325 MG TAB PO PRN ×2 (18:00→21:45)
[2019-08-06] MEDS ORDERED: IOPAMIDOL 370 MG/ML 200 ML INFUS..BTL INJ ONE (18:03)
[2019-08-06] MEDS ORDERED: SODIUM CHLORIDE 0.9% 50ML 50 ML ONE (18:03)
[2019-08-06] MEDS ORDERED: FUROSEMIDE INJ 10 MG/ML 4 ML VIAL IV ONE (18:30)
--- NOTE | 2019-08-06 19:04 | Diagnostic Imaging Report ---
EXAM: CT Chest WITH contrast 08/06/2019 1:54 PM INDICATION: ^sob ^[id number] ^[id number] COMPARISON: Chest radiograph 11/08/2016 TECHNIQUE: Spiral CT images of the chest were performed from the lung apices through the level of the adrenal glands after the IV contrast administration. Thin section reconstructions were obtained with special concentration on the pulmonary arteries. IV CONTRAST: 100 mL of Isovue-370 ORAL CONTRAST: None COMPLICATIONS: None RADIATION DOSE: Total DLP: Not available mGy*cm Estimated effective dose: (DLP x 0.015 x size factor) mSv CTDIvol has been reviewed. It is below the limits set by the Radiation Protocol Committee (RPC). FINDINGS: LINES/ TUBES: None. PULMONARY ARTERIES: No filling defects are identified in the main, right or left pulmonary arteries to their segmental and subsegmental levels, to suggest pulmonary embolism. The main pulmonary artery is normal in size, measuring 2.5 cm in diameter. LUNGS AND AIRWAYS: Subsegmental atelectasis in both lung bases. Diffuse bilateral interstitial edema. Bilateral central peribronchial wall thickening likely related to interstitial edema. Airways are patent. No bronchiectasis. PLEURA: Small bilateral pleural effusions. Small amount of loculated fluid along the minor fissure on series 2, image 39. No pneumothorax. HEART AND MEDIASTINUM: The thyroid gland is normal. Few nonspecific noncalcified subcentimeter mediastinal lymph nodes. Biatrial enlargement. The right ventricle appears mildly enlarged with flattening of the interventricular septum suggestive of increased right-sided pressures. There is no pericardial effusion. Extensive coronary artery calcification, status post CABG. The thoracic aorta is normal in size and associated with moderate atherosclerotic calcifications in the aortic arch and descending thoracic segment. UPPER ABDOMEN: Unremarkable. BONES: Remote mildly displaced posttraumatic deformity of the left 2nd to 7th ribs. SOFT TISSUES: Unremarkable. IMPRESSION: No pulmonary embolism. Pulmonary arteries are normal in caliber, however, there is dilation of the right atrium and right ventricle with flattening of the interventricular septum suggestive of increased right-sided pressures. Correlate with echocardiogram. Bilateral interstitial edema and small bilateral pleural effusions with adjacent bibasilar atelectasis. Signed by: Dr. Tara Rollins M.D. on 08/06/2019 7:00 PM
--- NOTE | 2019-08-06 19:21 | NUR ---
LINDSAY SMITH (DR. DONAHUE) SPOKE TO DR. HERZOG
[2019-08-06 21:10] VITALS: BP 152/70
[2019-08-06 21:26] VITALS: BP 152/70
[2019-08-06] MEDS ORDERED: NON-FORMULARY MEDICATION (Amlodipine Besylate/Benazepril (Amlodipine-Benazepril 5-20 Mg) 1 PO SCH (21:45)
[2019-08-06] MEDS ORDERED: HYDRALAZINE HCL 20 MG/ML VIAL IV PRN (21:45)
[2019-08-06] MEDS ORDERED: ONDANSETRON HCL INJ 2MG/ML 2ML 2 MG/ML VIAL IV PRN (21:45)
[2019-08-06] MEDS ORDERED: GUAIFENESIN/CODEINE 10 ML CUP PO PRN (21:45)
[2019-08-06] MEDS ORDERED: HYDROCODONE/APAP 5MG-325MG TAB PO PRN (21:45)
[2019-08-06] MEDS: INSULIN LISPRO 100 UNIT/1 ML 3ML VIAL SQ SCH (21:50)
[2019-08-06] MEDS: METOPROLOL TARTRATE 25 MG TAB PO SCH (21:50)
[2019-08-06] MEDS: MELATONIN 5 MG TABLET PO PRN (22:00)
[2019-08-06] MEDS: BENZONATATE 100 MG CAP PO PRN (22:00)
[2019-08-06] MEDS: AMLODIPINE BESYLATE 5 MG TAB PO SCH (22:04)
[2019-08-06] MEDS: BENAZEPRIL HCL 10 MG TAB PO SCH (22:04)
[2019-08-06 22:13] VITALS: BP 152/70
[2019-08-06 22:17] VITALS: BP 152/70
[2019-08-06] MEDS: ENOXAPARIN SOD INJ 40 MG/0.4 ML SYR SC SCH (22:33)
--- NOTE | 2019-08-06 22:33 | NUR ---
pulmonary dictated [id number] Thanks
[2019-08-06 22:46] LABS: CREATINE KINASE MB 9.3 ng/mL (0-5.0)
--- NOTE | 2019-08-06 23:24 | Consultation ---
DATE OF CONSULTATION: 08/06/2019 Pulmonary Medicine Consult HISTORY OF PRESENT ILLNESS: Mr. Smith is a pleasant 78-year-old gentleman with shortness of breath. The patient presented on August 06, 2019 to [facility]. The patient is with dyspnea for about 7 days. He is feeling chest tightness associated with this. He is also having some swelling to the arms and legs. The patient sites wheezing. He comes to the emergency room. It is noted that the patient has a temperature of 101 degrees Fahrenheit, 118 heart rate, 182/75 blood pressure. The patient looks reasonably uncomfortable and fatigued. On labs, 0.2 white count noted, 115 sodium. Urinalysis with 11 to 20 white blood cells and 21 to 50 RBCs. Influenza antigen swab negative. Chest x-ray demonstrating bilateral pleural effusions, bilateral pleural and subpleural atelectatic stranding, mild RV enlargement. At this point, he is elected for hospitalization. PAST MEDICAL HISTORY: Hypertension, diabetes, TIA, UT, hypothyroidism, GERD, hyperlipidemia, peripheral vascular disease, CABG, amputation of left foot toes. On July 07, 2019, echo with 55% to 60% LVEF, history of angioplasty, left posterior tibial artery/peripheral vascular disease. MEDICATIONS: Medication list reviewed per electronic record include metformin, lisinopril, amlodipine, benazepril, atorvastatin, Plavix, Reglan, metoprolol, and tamsulosin. ALLERGIES: TO ASPIRIN. SOCIAL HISTORY: No smoking. No drinking. No drugs. FAMILY HISTORY: Noncontributory. REVIEW OF SYSTEMS: GENERAL: No weight changes. OPHTHALMOLOGIC: No floaters. ENT: No mouth ulcers. ENDOCRINE: No thyroid disease. PULMONARY: No doc asthma. CARDIAC: No UT. GI: No constipation. : No blood in urine. DERMATOLOGIC: No rash. NEUROLOGIC: No seizures. PSYCHIATRIC: No depression. OBJECTIVE: VITAL SIGNS: Now afebrile, vital signs noted per the chart record. GENERAL: In no distress, slightly pale, slightly anxious. HEENT: Normocephalic, atraumatic. NECK: Supple. Throat midline. LUNGS: Bilateral air entry, decreased breath sounds at bases, a few wheezes bilaterally. CARDIOVASCULAR: S1, S2. No murmurs, rubs, or gallops. ABDOMEN: Soft, nontender. EXTREMITIES: No clubbing. No cyanosis. There is 2+ edema in the legs. INTEGUMENT: No rash or purpura. LABORATORY DATA: 21 bicarbonate, 16 BUN, 0.95 creatinine. 31 hematocrit, 260 platelets. LFTs are noted. Mostly, unremarkable LFTs. IMPRESSION AND PLAN: 1. Febrile syndrome, sepsis. 2. Urinary tract infection. 3. Pneumonia. 4. Pleural effusions. 5. Strandy atelectasis, rule out chronic pleural disease. 6. Borderline RV enlargement, on CAT scan. 7. Hypertension. 8. Diabetes. 9. 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 10. Critical hyponatremia. 11. Leukocytosis. 12. Moderate anemia. 13. Mild rhabdomyolysis, CK elevation. Repeat labs including CK values and check for inflammatory markers. COVID-19 testing was sent out. Repeat echo to assess the heart better. Antibiotics for community-acquired pneumonia initially. Check thyroid level. Serial followup of hyponatremia and careful correction of the natremia is recommended. Deep venous thrombosis prophylaxis should be appropriate. Thank you very much, Dr. Tamez for this consult. Please call for questions. MD SREEDHAR Brewer/MODL /[id number]
--- NOTE | 2019-08-06 23:35 | History and Physical ---
CHIEF COMPLAINT: Cough, congestion, and subjective fever. HISTORY OF PRESENT ILLNESS: This is an 78-year-old male with history of type 2 diabetes, hypertension, comes into the ED with complaints of cough, congestion, and subjective fever ongoing for the last several days at home. The patient denies any sick contacts. He lives with his . He has not recently traveled anywhere. He reports having also some underlying shortness of breath. Denies any chest pain or any palpitations. He has no history of COPD or any asthma. The patient was seen and evaluated at bedside on the medical floor. He is currently in isolation to rule out coronavirus PCR. REVIEW OF SYSTEMS: Pertinent positives; shortness of breath, cough, congestion, and fever. The rest of 14-point review of systems have been reviewed with the patient and are negative. ALLERGIES: TO ASPIRIN. HOME MEDICATIONS: Amlodipine with benazepril, atorvastatin, Plavix, metoclopramide, metoprolol, tamsulosin, lisinopril, and metformin. PAST MEDICAL HISTORY: Type 2 diabetes, hypertension, hyperlipidemia, and BPH. PAST SURGICAL HISTORY: Reports none. FAMILY HISTORY: Hypertension and diabetes. SOCIAL HISTORY: No drugs. No alcohol. Does not smoke. Good social support. PHYSICAL EXAMINATION: VITAL SIGNS: Temperature is 99.4. His T-max was 101, pulse 105, respiratory rate is 20, blood pressure 152/70, pulse ox 97% on 3 L nasal cannula. GENERAL: Not in acute distress. Alert and oriented x3. Cooperative on examination. HEENT: Head is normocephalic, atraumatic. Eyes; pupils are equal, round, and reactive to light bilaterally. Extraocular movements are intact bilaterally. Throat, no evidence of erythema or exudates in the posterior pharynx. He has poor dentition. NECK: Supple. Good range of motion. PULMONARY: He does have decreased breath sounds bilaterally with fine crackles. CARDIOVASCULAR: Positive S1 and S2. No murmurs, rubs, or gallops appreciated. ABDOMEN: Soft, nondistended and nontender to palpation. Bowel sounds are present. MUSCULOSKELETAL: Strength is 5/5 throughout. No evidence of any muscle deficits on examination. No weakness appreciated. NEUROLOGIC: Cranial nerves II through XII grossly intact. No evidence of any neurological deficits on exam. SKIN: Intact. Warm to touch. Good cap refill. PSYCHIATRIC: Normal affect and mood. EXTREMITIES: No edema. Good range of motion throughout. LABORATORY DATA: Showed white count was 22, hemoglobin 11.5, hematocrit 31, platelets of 260. Chemistry; sodium was 115 on admission, pending repeat; potassium was 4.5, chloride was 83, bicarbonate was 21, anion gap was 15, BUN was 16, creatinine was 0.95, glucose was 358, lactic acid was 2.2, calcium was 9.2, total bilirubin was 1.2, AST was 26, ALT 26, alkaline phosphatase was 100, troponins 0.117. Rest are pending. CK level was 284. Albumin was 3.6. BNP 1165. Urinalysis 2+ protein, 1+ ketones, 21-50 RBC's, 11-20 WBC's. Respiratory panel all pending. Microbiology, urine, blood, and throat cultures are pending. IMAGING STUDIES: Chest CT with IV contrast shows no pulmonary embolism. Pulmonary arteries are normal in caliber, however, there is a dilatation in the right atrium and right ventricle. Flattening of the interventricular septum suggestive of increased right-sided pressures correlated with the echo. Bilateral interstitial edema with bilateral pleural effusion with adjacent bibasilar atelectasis. IMPRESSION: 1. Sepsis with leukocytosis concerning for underlying community-acquired pneumonia. 2. Hyponatremia, asymptomatic. 3. Type 2 diabetes. 4. Hypertension. 5. Benign prostatic hypertrophy. PLAN: At this time, the patient has cultures pending, blood cultures, throat cultures, and urine cultures. He is on IV azithromycin and Rocephin. ID and Pulmonary have been consulted. Coronavirus PCR is pending as well as the respiratory panel. As for his sodium, stat sodium level has been ordered. I am awaiting those final results, which I discussed with the nurse to call me. Hold all fluids. Hold all diuretics for now. We will get repeat labs in the morning. Resume same home medications. Put on Lovenox for DVT prophylaxis. Start on sliding scale, moderate. Consultants involved ID and Pulmonary. We will monitor the patient's volume status as well as his BNP is elevated. He may need some diuretics, but since then there is low sodium. I would like to be very careful in terms of giving significant amount of diuresis at this time. MD CONNOR Ellington/YESI /[id number]
[2019-08-07] VITALS (10 sets, daily range): BP systolic 116–147; BP diastolic 57–68
[2019-08-07 05:38] LABS: BASOPHILS % 0.1 % (0.0-1.0); EOSINOPHILS # (AUTO) 0.1 (0.0-0.4); EOSINOPHILS % 0.3 % (0.0-6.0); HEMATOCRIT 30.9 % (38.2-49.6); HEMOGLOBIN 10.9 g/dL (14.0-18.0); LYMPHOCYTES # (AUTO) 1.1 (1.0-3.2); LYMPHOCYTES % 6.7 % (18.0-39.1); MEAN CORPUSCULAR HEMOGLOBIN 29.7 pg (28-32); MEAN CORPUSCULAR HGB CONC 35.3 g/dL (31-35); MEAN CORPUSCULAR VOLUME 84.2 fL (81-99); MONOCYTES # (AUTO) 2.6 (0.2-0.8); MONOCYTES % 15.1 % (4.4-11.3); NEUTROPHILS # (AUTO) 13.1 (2.1-6.9); NEUTROPHILS % 77.2 % (38.7-80.0); PLATELET COUNT 245 x10e3/uL (140-360); RED BLOOD COUNT 3.67 x10e6/uL (4.3-5.7); RED CELL DISTRIBUTION WIDTH 12.4 % (11.7-14.4)
[2019-08-07 05:55] LABS: ALANINE AMINOTRANSFERASE 21 IU/L (0-55); ALBUMIN 2.9 g/dL (3.5-5.0); ALBUMIN/GLOBULIN RATIO 0.8 (0.8-2.0); ALKALINE PHOSPHATASE 77 IU/L (40-150); ANION GAP 11.6 mmol/L (8-16); BLOOD UREA NITROGEN 12 mg/dL (7-26); BUN/CREATININE RATIO 16 (6-25); CALCIUM 8.6 mg/dL (8.4-10.2); CARBON DIOXIDE 27 mmol/L (22-29); CHLORIDE 91 mmol/L (98-107); CREATININE, SERUM 0.75 mg/dL (0.72-1.25); EST GLOMERULAR FILTRATION RATE > 60 ML/MIN (60-); GLUCOSE 146 mg/dL (74-118); POTASSIUM 3.6 mmol/L (3.5-5.1); SODIUM 126 mmol/L (136-145)
[2019-08-07 06:37] LABS: CREATINE KINASE MB 9.2 ng/mL (0-5.0)
[2019-08-07 06:42] LABS: CHOL/HDL RATIO 2.2 (3.9-4.7)
--- NOTE | 2019-08-07 07:00 | NUR ---
RECEIVED PATIENT RESTING IN BED NO S/S OF DISTRESS. BED LOW, WHEELS LOCKED, SIDE RAILS X2. CALL LIGHT IN REACH WILL CONTINUE TO MONITOR PATIENT.
[2019-08-07 07:05] LABS: FERRITIN 201.59 ng/mL (21.81-274.66); FREE THYROXINE INDEX 3.6681 (1.4-3.8); THYROID STIMULATING HORMONE 0.666 uIU/mL (0.350-4.940)
[2019-08-07] MEDS: INSULIN LISPRO 100 UNIT/1 ML 3ML VIAL SQ SCH ×4 (07:30→20:38)
[2019-08-07 08:01] LABS: LYMPHOCYTES % (MANUAL) 7 % (19-48); MONOCYTES % (MANUAL) 9 % (3.4-9.0); NEUTROPHILS % (MANUAL) 84 % (40-74); PLATELET ESTIMATE ADEQUATE; PLATELET MORPHOLOGY COMMENT NORMAL; RBC MORPHOLOGY COMMENT NORMAL
[2019-08-07] MEDS: TAMSULOSIN HCL 0.4 MG CAP PO SCH (08:14)
[2019-08-07] MEDS: METOCLOPRAMIDE HCL 10 MG TAB PO SCH (08:14)
[2019-08-07] MEDS: CLOPIDOGREL BISULFATE 75 MG TAB PO SCH (08:14)
[2019-08-07] MEDS: METOPROLOL TARTRATE 25 MG TAB PO SCH ×2 (08:14→16:14)
--- NOTE | 2019-08-07 10:59 | Diagnostic Imaging Report ---
EXAM: CHEST SINGLE (PORTABLE) DATE: 08/07/2019 5:00 AM INDICATION: CHF, pneumonia COMPARISON: CT from 08/06/2019 FINDINGS: There are postsurgical changes from prior median sternotomy. The trachea is midline. There is prominence of the central pulmonary vasculature and increased interstitial markings present bilaterally. There is no evidence for large focal consolidation or pneumothorax. There is blunting of the bilateral costophrenic angle suggestive of trace pleural effusions. The cardiomediastinal silhouette is within normal limits. Atherosclerotic calcifications are noted within the aortic arch. No acute osseous abnormality is identified. IMPRESSION: Findings suggestive of interstitial edema. Trace bilateral pleural effusions. Signed by: Dr. Bimal Dominguez MD on 08/07/2019 10:55 AM
--- NOTE | 2019-08-07 12:10 | Consultation ---
DATE OF CONSULTATION: HISTORY OF PRESENT ILLNESS: The patient has fever, chills, and cough. This patient, who is an 78-year-old male with history of diabetes mellitus and hypertension, comes to the emergency room with cough, congestion, and fever. The patient lives with his . He was admitted. PAST MEDICAL AND SURGICAL HISTORY: He does have above medical history and above surgical history. MEDICATIONS: 1. Amlodipine. 2. Atorvastatin. 3. Plavix. Medications, he is currently on: 1. Flomax. 2. Lopressor. 3. Reglan. 4. . 5. . SOCIAL HISTORY: There is no smoking, drug abuse, or alcohol abuse. FAMILY HISTORY: Hypertension. LABORATORY DATA: Blood culture is pending. White count on admission was 22, hemoglobin 11, hematocrit 31, and platelets 260. His respiratory panel is pending. COVID-19 is pending. PHYSICAL EXAMINATION: GENERAL: He is currently alert and oriented, does not seem to be in acute distress. VITAL SIGNS: Stable, currently afebrile, T-max 101.1. HEENT: Not icteric. NECK: Supple. CHEST: Few crackles. COR: S1 and S2. ABDOMEN: Soft. IMPRESSION: Pneumonia, community acquired, concerned about COVID-19, concerned about bacteria. PLAN: Agree with antibiotic. We will put droplet isolation until we get the cultures. MD JAX Galvan/YESI /[id number]
[2019-08-07] MEDS ORDERED: CEFTRIAXONE SOD 1 GRAM/0.9% SOD CHL 50ML BAG IV SCH (13:00)
[2019-08-07] MEDS ORDERED: AZITHROMYCIN 500MG/SOD CHL 0.9% 250ML BAG IV SCH (13:00)
--- NOTE | 2019-08-07 13:06 | NUR ---
Pulmonary Medicine DATE 08/07/2019 SUBJECTIVE NO FEVERS OXYGEN 3.5 l/MIN BY az EDEMA IN LEGS 1+ eating well low Na again REVIEW OF SYSTEMS: no rash, no bleeding OBJECTIVE: VITAL SIGNS: vital signs noted per the chart record. GENERAL: no distress, slightly pale HEENT: Normocephalic, atraumatic. NECK: Supple. Throat midline. LUNGS: Bilateral air entry, decreased breath sounds at bases. no wheezes CARDIOVASCULAR: S1, S2. No murmurs, rubs, or gallops. ABDOMEN: Soft, nontender. EXTREMITIES: No clubbing. No cyanosis. 2+ edema in the legs. INTEGUMENT: No rash or purpura. LABORATORY DATA: k 3.6, cr 0.75. wbc 16.9, hct 30.9, plt 245 IMPRESSION AND PLAN: 1. Febrile syndrome, sepsis. 2. Urinary tract infection. 3. Pneumonia. 4. Pleural effusions. 5. Strandy atelectasis, rule out chronic pleural disease. 6. Borderline RV enlargement, on CAT scan. 7. Hypertension. 8. Diabetes. 9. Peripheral vascular disease, s/p [facility] left posterior tibialis artery. 10. Critical hyponatremia. 11. Leukocytosis. 12. Moderate anemia. 13. Mild rhabdomyolysis, CK elevation. Repeat intermittent labs including CK values and inflammatory markers. Follow up COVID-19 testing Consider repeat echo Rx for community-acquired pneumonia, Antibiotics Serial followup of hyponatremia DVT prophylaxis Thank you very much, Dr. Tamez for this consult. Please call for questions.
[2019-08-07] MEDS: CEFTRIAXONE SOD 1 GM/NS 50 ML 50 ML IV SCH (13:25)
--- NOTE | 2019-08-07 13:50 | NUR ---
CONSULT CALLED TO DR. Smiley STAHL OFFICE.
[2019-08-07] MEDS ORDERED: DEXTROSE 5% 1,000 ML IV ONE (14:00)
[2019-08-07] MEDS ORDERED: DESMOPRESSIN ACETATE 4 MCG/ML VIAL SQ ONE (14:00)
--- NOTE | 2019-08-07 14:06 | Consultation ---
DATE OF CONSULTATION: 08/06/2019 HISTORY OF PRESENT ILLNESS: This is a late entry. The patient was originally seen on August 06, 2019 in the emergency room. The patient was seen for shortness of breath and cough. The patient who is an 78-year-old male, has history of diabetes mellitus, hypertension, comes into emergency room with cough, shortness of breath. The patient in the emergency room he has fever 101. He was tachypneic and tachycardic. The patient was seen and examined on August 05. Discussed with the ER physician and notes evaluated. The patient does have history of hypertension, diabetes mellitus, TIA, myocardial infarction, hypothyroidism, GERD, CABG, amputation of the toes. He had an echocardiogram on July 17, which showed an ejection fraction of 55%. MEDICATION LIST: Reviewed. He is on: 1. Atorvastatin. 2. Metformin. ALLERGIES: ASPIRIN. SOCIAL HISTORY: There is no smoking, drug abuse or abuse. FAMILY HISTORY: Hypertension. HOME MEDICATION: Reviewed. Chest x-ray also reviewed. Chart reviewed. PHYSICAL EXAMINATION: GENERAL: He was alert, oriented, but little bit short of breath. VITAL SIGNS: Stable, currently afebrile, 101 T-max. HEENT: Not icteric. NECK: Supple. CHEST: Few crackles. COR: S1, S2. No murmur. ABDOMEN: Soft. Bowel sounds present. EXTREMITIES: No edema. SKIN: No rash. IMPRESSION: Sepsis on admission, shortness of breath, increase pneumonia. I am concerned about component of acute congestive heart failure, also hyponatremia. From Infectious Disease point of view, we will put him on Rocephin and azithromycin since this is the season we have in the middle of epidemic of COVID-19. We will go ahead and check him. We will keep him on droplet isolation. Further recommendations to follow. MD JAX Galvan/YESI /[id number]
[2019-08-07] MEDS: AZITHROMYCIN 500MG/NS 250 ML 250 ML IV SCH (15:03)
[2019-08-07] MEDS: ENOXAPARIN SOD INJ 40 MG/0.4 ML SYR SC SCH (16:14)
[2019-08-07] MEDS: AMLODIPINE BESYLATE 5 MG TAB PO SCH (20:14)
[2019-08-07] MEDS: ATORVASTATIN 20 MG TAB PO SCH (20:14)
[2019-08-07] MEDS: MELATONIN 5 MG TABLET PO PRN (20:18)
[2019-08-07] MEDS: BENZONATATE 100 MG CAP PO PRN (20:18)
[2019-08-07] MEDS: BENAZEPRIL HCL 10 MG TAB PO SCH (20:34)
[2019-08-07] MEDS ORDERED: FUROSEMIDE INJ 10 MG/ML 4 ML VIAL IV STA (21:24)
[2019-08-07 21:30] LABS: CREATINE KINASE MB 3.4 ng/mL (0-5.0)
[2019-08-07] MEDS ORDERED: FUROSEMIDE INJ 10 MG/ML 4 ML VIAL IV ONE (22:00)
--- NOTE | 2019-08-07 22:17 | Progress Note ---
DATE: 08/07/2019 Medicine Progress Note SUBJECTIVE: The patient is doing well today with no issues. His sodium level was noted to be elevated in which I had given DDAVP as well as D5W. No overnight events. OBJECTIVE: VITAL SIGNS: Temperature is 98.6, pulse 87 respiratory rate is 20, blood pressure was 141/68. He was on room air and then later in the day he required a non-rebreather due to a possible volume overload. GENERAL: Not in acute distress. Alert and oriented x3. Cooperative on examination. HEENT: Head is normocephalic and atraumatic. Eyes; pupils are equal, round, and reactive to light bilaterally. Extraocular movements intact bilaterally. Throat; no evidence of erythema or exudates in the posterior pharynx. Has poor dentition. NECK: Supple. Good range of motion. PULMONARY: Clear to auscultation bilaterally. No wheezing, rales, or rhonchi. No crackles appreciated. CARDIOVASCULAR: Positive S1, S2. No murmurs, rubs, or gallops appreciated. ABDOMEN: Soft, nondistended, and nontender to palpation. Bowel sounds present. MUSCULOSKELETAL: Strength is 5/5 throughout. No evidence of any muscle deficits on examination. No weakness appreciated. NEUROLOGIC: Cranial nerves II through XII grossly intact. No evidence of any neurological deficits on exam. SKIN: Intact. Warm to touch. Good cap refill. PSYCHIATRIC: Normal affect and mood. EXTREMITIES: No edema. Good range of motion throughout. LABORATORY DATA: Labs show white count 16.9, hemoglobin 10.9, hematocrit 31, platelets of 245. Chemistry; sodium was found to be 126 this morning and then it down trended to 124, potassium 3.6, chloride 91, bicarb 27, anion gap of 11, BUN is 12, creatinine 0.75, glucose is 146. His troponin is slightly elevated at 0.871. Albumin was 2.9. Urinalysis noted. Microbiology; urine culture shows gram-negative bacilli x2. Sputum cultures are pending. Throat cultures are pending. Blood cultures, no growth to date. IMAGING STUDIES: Chest x-ray this morning 08/07/2019 shows finding suggestive of interstitial edema. Trace bilateral pleural effusion. IMPRESSION: 1. Sepsis with leukocytosis, concern for underlying community-acquired pneumonia. 2. Hyponatremia, asymptomatic. 3. Type 2 diabetes. 4. Hypertension. 5. Benign prostatic hyperplasia. 6. Respiratory distress. 7. Mtj-YH-pdluxesia myocardial infarction. PLAN: At this time urine cultures were positive. Blood cultures, no growth to date. Continue with IV antibiotics and ID is following very closely. As for the shortness of breath, he was actually breathing much better early this morning, but later in the day he became short of breath after given IV fluids. Stat chest x-ray is ordered. Lasix 40 mg IV x1 has been ordered as well. His kearns virus PCR still pending. As well as his respiratory panel pending. His sodium improved after given DDAVP 2 mcg subcu x1 as well as D5W. Current sodium 124 compared to 126 this morning. D5W has being discontinued. We will get the stat chest x-ray, but in the interim will give Lasix 40 mg IV x1. As for his mild elevation of the troponin. Cardiology has been consulted. He will be on Lovenox for DVT prophylaxis. Consultants involved in this case are ID, Pulmonary, and Cardiology. Discussed plan of care with nursing staff. MD CONNOR Ellington/YESI /[id number]
--- NOTE | 2019-08-07 22:22 | Diagnostic Imaging Report ---
EXAMINATION: CHEST SINGLE (PORTABLE) INDICATION: Shortness of breath. COMPARISON: Chest radiograph 08/07/[address] chest 08/06/2019. FINDINGS: TUBES and LINES: None. LUNGS: Lungs are well inflated. Unchanged moderate bilateral perihilar and lower lung interstitial and airspace opacities. PLEURA: Small left and trace right pleural effusion. No pneumothorax. HEART AND MEDIASTINUM: The cardiomediastinal silhouette is unremarkable. There are atherosclerotic calcifications within the aorta. BONES AND SOFT TISSUES: No acute osseous abnormality. Status post median sternotomy. UPPER ABDOMEN: No free air under the diaphragm. IMPRESSION: Unchanged pulmonary edema, small left and trace right pleural effusions. No new consolidation. Signed by: Dr. Kaylah Gay MD on 08/07/2019 10:19 PM
[2019-08-08] VITALS (8 sets, daily range): BP systolic 132–156; BP diastolic 60–69
[2019-08-08 05:06] LABS: BASOPHILS % 0.3 % (0.0-1.0); EOSINOPHILS # (AUTO) 0.2 (0.0-0.4); EOSINOPHILS % 1.8 % (0.0-6.0); HEMATOCRIT 32.1 % (38.2-49.6); HEMOGLOBIN 11.1 g/dL (14.0-18.0); LYMPHOCYTES % 8.2 % (18.0-39.1); MEAN CORPUSCULAR HEMOGLOBIN 29.3 pg (28-32); MEAN CORPUSCULAR HGB CONC 34.6 g/dL (31-35); MEAN CORPUSCULAR VOLUME 84.7 fL (81-99); NEUTROPHILS # (AUTO) 8.9 (2.1-6.9); NEUTROPHILS % 72.9 % (38.7-80.0); PLATELET COUNT 283 x10e3/uL (140-360); RED BLOOD COUNT 3.79 x10e6/uL (4.3-5.7); RED CELL DISTRIBUTION WIDTH 12.8 % (11.7-14.4)
[2019-08-08 05:28] LABS: ANION GAP 14.3 mmol/L (8-16); BLOOD UREA NITROGEN 11 mg/dL (7-26); BUN/CREATININE RATIO 15 (6-25); CALCIUM 8.2 mg/dL (8.4-10.2); CARBON DIOXIDE 28 mmol/L (22-29); CHLORIDE 88 mmol/L (98-107); CREATINE KINASE 81 IU/L (30-200); CREATININE, SERUM 0.75 mg/dL (0.72-1.25); EST GLOMERULAR FILTRATION RATE > 60 ML/MIN (60-); GLUCOSE 157 mg/dL (74-118); MAGNESIUM 1.6 MG/DL (1.3-2.1); PHOSPHORUS 2.5 MG/DL (2.3-4.7); POTASSIUM 3.3 mmol/L (3.5-5.1); SODIUM 127 mmol/L (136-145)
[2019-08-08] MEDS ORDERED: POTASSIUM CHLORIDE 10MEQ EA PO ONE (07:00)
[2019-08-08] MEDS ORDERED: FUROSEMIDE INJ 10 MG/ML 2 ML VIAL IV ONE (07:00)
--- NOTE | 2019-08-08 07:11 | NUR ---
RECEIVED PATIENT RESTING IN BED NO S/S OF DISTRESS. BED LOW, WHEELS LOCKED, SIDE RAILS X2. CALL LIGHT IN REACH WILL CONTINUE TO MONITOR PATIENT.
[2019-08-08] MEDS: INSULIN LISPRO 100 UNIT/1 ML 3ML VIAL SQ SCH ×4 (07:30→21:05)
[2019-08-08] MEDS: CLOPIDOGREL BISULFATE 75 MG TAB PO SCH (07:59)
[2019-08-08] MEDS: METOPROLOL TARTRATE 25 MG TAB PO SCH ×2 (07:59→17:04)
[2019-08-08] MEDS: TAMSULOSIN HCL 0.4 MG CAP PO SCH (07:59)
[2019-08-08] MEDS: METOCLOPRAMIDE HCL 10 MG TAB PO SCH (07:59)
--- NOTE | 2019-08-08 09:10 | NUR ---
Attempted telephonic visit. Pt did not answer. [facility] [employer] [facility] Care Department O: [phone]
--- NOTE | 2019-08-08 10:59 | Diagnostic Imaging Report ---
EXAM: CHEST SINGLE (PORTABLE) DATE: 08/08/2019 5:00 AM INDICATION: CHF COMPARISON: 08/07/2019 FINDINGS/IMPRESSION: Post surgical changes from median sternotomy again noted. There are unchanged increased perihilar and lower lung zone interstitial and airspace opacities. Stable appearing trace bilateral pleural effusions again noted. There is no evidence for new large focal consolidation or pneumothorax. The cardiomediastinal silhouette is stable in appearance. No acute osseous abnormality is identified. Signed by: Dr. Bimal Dominguez MD on 08/08/2019 10:55 AM
[2019-08-08] MEDS: CEFTRIAXONE SOD 1 GM/NS 50 ML 50 ML IV SCH (13:22)
[2019-08-08] MEDS ORDERED: FUROSEMIDE INJ 10 MG/ML 2 ML VIAL IV NR (13:30)
[2019-08-08] MEDS: AZITHROMYCIN 500MG/NS 250 ML 250 ML IV SCH (14:07)
[2019-08-08] MEDS: ENOXAPARIN SOD INJ 40 MG/0.4 ML SYR SC SCH (17:04)
--- NOTE | 2019-08-08 17:05 | Progress Note ---
DATE: SUBJECTIVE: Mr. Gregory said he is feeling better today, but he is still on high FiO2. His lab data reviewed. His urine showed Acinetobacter baumannii and Klebsiella pneumonia. Sensitivity pattern reviewed. PHYSICAL EXAMINATION: GENERAL: Currently alert. VITAL SIGNS: Stable. Afebrile. HEENT: Not icteric. NECK: Supple. CHEST: Few crackles, bilateral. COR: S1-S2. No S3, S4, or murmur. ABDOMEN: Soft. Bowel sounds present. No tenderness. EXTREMITIES: No edema. IMPRESSION: 1. Urinary tract infection, present on admission. 2. Sepsis, present on admission. 3. Cardiomegaly. 4. Congestive heart failure. PLAN: He was still waiting for COVID-19. The patient is currently on azithromycin and Rocephin, which both bacteria sensitive too. Await Covid-19. Continue IV antibiotic. May want to consider Cardiology evaluation and echocardiogram. MD JAX Galvan/YESI /[id number]
--- NOTE | 2019-08-08 17:14 | NUR ---
Nutrition Screen Note RD Recommendation for Physician: -Recommend low sodium/1800 kcal consistent carbohydrate diet Plan of Care: RD following, monitoring for tolerance and adequacy Nutrition reason for involvement: Diagnosis - CHF Primary Diagnose(s): CHF, hypoxia, and pneumonia PMH: Type 2 diabetes, hypertension, hyperlipidemia, and BPH. Ht: 67 in Wt:138 lb BMI: 21.6 kg/m2 IBW:[address] Assessment: (08/08/19) Chart reviewed. Labs and meds reviewed. Pt is an 78 year old male admitted with CHF, hypoxia, and pneumonia. Pt is currently in isolation, COVID-19 results pending. Attempted to call pt via phone, but unable to gather information from patient. Per chart, pt is eating well and consumed 100% of meals yesterday. No weight loss is evident per weight history. Will continue to monitor Current Diet: 1800 ADA Malnutrition Evaluation (08/08/19) The patient does not meet criteria for a specified degree of malnutrition at this time. Will re-evaluate at follow-up as appropriate. Diet Education Needs Assessment: RD is available for diet education as needed Nutrition Care Level: low Signed: Adalgisa Rodriguez, RD, LD
[2019-08-08 17:51] LABS: ANION GAP 12.1 mmol/L (8-16); BLOOD UREA NITROGEN 13 mg/dL (7-26); BUN/CREATININE RATIO 17 (6-25); CALCIUM 7.9 mg/dL (8.4-10.2); CARBON DIOXIDE 30 mmol/L (22-29); CHLORIDE 88 mmol/L (98-107); CREATININE, SERUM 0.78 mg/dL (0.72-1.25); EST GLOMERULAR FILTRATION RATE > 60 ML/MIN (60-); GLUCOSE 264 mg/dL (74-118); POTASSIUM 4.1 mmol/L (3.5-5.1); SODIUM 126 mmol/L (136-145)
--- NOTE | 2019-08-08 18:01 | NUR ---
Pulmonary attending I saw and examined the patient on 08/08/19 with Kaylin Aguila NP. I agree with her findings. Await COVID testing. Follow oxygenation, which is worse today. Careful fluid administration.
[2019-08-08] MEDS ORDERED: FUROSEMIDE INJ 10 MG/ML 4 ML VIAL IV SCH (18:30)
[2019-08-08] MEDS: AMLODIPINE BESYLATE 5 MG TAB PO SCH (20:15)
[2019-08-08] MEDS: MELATONIN 5 MG TABLET PO PRN (20:15)
--- NOTE | 2019-08-08 20:52 | Progress Note ---
DATE: 08/08/2019 Medicine Progress Note SUBJECTIVE: The patient was short of breath last night, on non-rebreather with chest x-ray showing pulmonary edema. The patient was given several rounds of diuretics with much improvement. PHYSICAL EXAMINATION: VITAL SIGNS: Temperature is 98.9, pulse 81, respiratory rate is 19, blood pressure 132/61, pulse ox 95% and he is now on nasal cannula. GENERAL: Not in acute distress. Alert and oriented x3. Cooperative on examination. HEENT: Head is normocephalic, atraumatic. Eyes; pupils are equal, round, and reactive to light bilaterally. Extraocular movements intact bilaterally. Throat; no evidence of erythema or exudates in the posterior pharynx. He has poor dentition. NECK: Supple. Good range of motion. PULMONARY: Clear to auscultation bilaterally. No wheezing, rales, or rhonchi. No crackles appreciated. CARDIOVASCULAR: Positive S1 and S2. No murmurs, rubs, or gallops appreciated. ABDOMEN: Soft, nondistended, and nontender to palpation. Bowel sounds present. MUSCULOSKELETAL: Strength is 5/5 throughout. No evidence of any muscle deficits on examination. No weakness appreciated. NEUROLOGIC: Cranial nerve 2 through 12 grossly intact. No evidence of any neurological deficits on exam. SKIN: Intact. Warm to touch. Good cap refill. PSYCHIATRIC: Normal affect and mood. EXTREMITIES: No edema. Good range of motion throughout. LABORATORY DATA: Labs show white count 12.2, hemoglobin 11.1, hematocrit 32.1, and platelets of 283. Chemistry; sodium 126, potassium 4.1, chloride 88, bicarb 30, anion gap of 12, BUN is 13, creatinine is 0.78, and calcium is 7.9. Troponin is still elevated at 0.578. Viral panel not detected. Coronavirus PCR pending. Urine culture shows Acinetobacter and Klebsiella pneumoniae. Blood cultures, no growth. Throat cultures, no growth. Sputum cultures, no growth. IMAGING STUDIES: Chest x-ray this morning shows some airspace areas of pulmonary edema. IMPRESSION: 1. Sepsis with leukocytosis concerning for underlying community-acquired pneumonia. 2. Hyponatremia, asymptomatic. 3. Type 2 diabetes. 4. Hypertension. 5. Benign prostatic hypertrophy. 6. Respiratory distress secondary to pulmonary edema. 7. Gwd-[id number]-cybxcioqs myocardial infarction. PLAN: At this time, urine cultures are positive. He is currently on IV antibiotics, blood cultures no growth to date. ID is following very closely. In terms of his shortness of breath, it actually improved with IV diuretics, in which he has received several doses today. We will get a.m. labs. Monitor very closely. His coronavirus PCR still pending. Cardiology has been consulted for 2 days now and the nursing staff has been trying to get a hold of him and he is not responsive to any of his phone calls. Troponin is slightly elevated. We will have nursing staff continue to reach out to the Cardiology team. Consultants involved; ID, Pulmonary, Cardiology. Case discussed with nursing staff. MD CONNOR Ellington/YESI /[id number]
[2019-08-08] MEDS: ATORVASTATIN 20 MG TAB PO SCH (21:05)
[2019-08-08] MEDS: BENAZEPRIL HCL 10 MG TAB PO SCH (21:05)
--- NOTE | 2019-08-08 21:10 | NUR ---
RECEIVED PT (R) SIDE LAYING SEMI FOWLERS IN BED, AAOX3, RR EVEN AND NON-LABORED WITH DRY COUGH NOTED, NRB IN PLACE. O2 AT BEDSIDE IS 95-98% INSTRUCTED PT ON HOW TO CALL NURSE AND COMMUNICATIONS DESIGNER. NO S/SX OF DISTRESS NOTED. LEFT PT (R) SIDE LAYING SEMI FOWLERS IN BED, BED IN LOW LOCKED POSITION, SIDE RAILS UP X2, CALL LIGHT AND PHONE WITHIN REACH.
[2019-08-09] VITALS (8 sets, daily range): BP systolic 116–151; BP diastolic 62–71
[2019-08-09 05:26] LABS: BASOPHILS # (AUTO) 0.1 (0.0-0.1); BASOPHILS % 0.4 % (0.0-1.0); EOSINOPHILS # (AUTO) 0.5 (0.0-0.4); HEMATOCRIT 33.9 % (38.2-49.6); HEMOGLOBIN 11.4 g/dL (14.0-18.0); LYMPHOCYTES # (AUTO) 1.4 (1.0-3.2); LYMPHOCYTES % 11.1 % (18.0-39.1); MEAN CORPUSCULAR HEMOGLOBIN 29.5 pg (28-32); MEAN CORPUSCULAR HGB CONC 33.6 g/dL (31-35); MEAN CORPUSCULAR VOLUME 87.6 fL (81-99); MONOCYTES # (AUTO) 1.5 (0.2-0.8); MONOCYTES % 12.5 % (4.4-11.3); NEUTROPHILS # (AUTO) 8.7 (2.1-6.9); NEUTROPHILS % 71.2 % (38.7-80.0); PLATELET COUNT 294 x10e3/uL (140-360); RED BLOOD COUNT 3.87 x10e6/uL (4.3-5.7)
[2019-08-09 05:44] LABS: ANION GAP 13.8 mmol/L (8-16); BLOOD UREA NITROGEN 11 mg/dL (7-26); BUN/CREATININE RATIO 16 (6-25); CALCIUM 8.3 mg/dL (8.4-10.2); CARBON DIOXIDE 29 mmol/L (22-29); CHLORIDE 91 mmol/L (98-107); EST GLOMERULAR FILTRATION RATE > 60 ML/MIN (60-); GLUCOSE 114 mg/dL (74-118); POTASSIUM 3.8 mmol/L (3.5-5.1); SODIUM 130 mmol/L (136-145)
--- NOTE | 2019-08-09 06:42 | Progress Note ---
DATE: 08/07/2019 SUBJECTIVE: Mr. Gregory is feeling much better today. His breathing is much better. His cultures are still pending. His white count came down from 22 to 16.9, hemoglobin of 10, and hematocrit of 30. His respiratory panel is nondetectable. His influenza A and B negative. His COVID-19 is still pending. PHYSICAL EXAMINATION: GENERAL: He is currently alert, oriented, does not seem to be in acute distress. VITAL SIGNS: Stable. Currently afebrile. HEENT: He is not icteric. NECK: Supple. CHEST: Few crackles bilaterally. HEART: S1 and S2. No S3, S4, or murmur. ABDOMEN: Soft. Bowel sounds present. No tenderness. EXTREMITIES: No edema. SKIN: No rash. IMPRESSION: Sepsis on admission, seems to be better. Community-acquired pneumonia, on Rocephin and azithromycin. We are still waiting for the COVID-19. We kept him on droplet isolation until then. Acute on chronic congestive heart failure, seems to be clinically better. Hyponatremia being corrected. Discussed with the patient. We will follow. MD JAX Galvan/YESI /[id number]
--- NOTE | 2019-08-09 07:00 | NUR ---
bedside shift report received pt in stable condition denies pain at this time, updated on poc voiced understanding, call light in reach will continue to monitor
[2019-08-09] MEDS: INSULIN LISPRO 100 UNIT/1 ML 3ML VIAL SQ SCH ×4 (07:30→21:30)
[2019-08-09] MEDS ORDERED: FUROSEMIDE INJ 10 MG/ML 4 ML VIAL IV SCH (09:00)
[2019-08-09] MEDS: TAMSULOSIN HCL 0.4 MG CAP PO SCH (09:25)
[2019-08-09] MEDS: METOCLOPRAMIDE HCL 10 MG TAB PO SCH (09:25)
[2019-08-09] MEDS: METOPROLOL TARTRATE 25 MG TAB PO SCH ×2 (09:25→17:52)
[2019-08-09] MEDS: CLOPIDOGREL BISULFATE 75 MG TAB PO SCH (09:25)
--- NOTE | 2019-08-09 12:31 | NUR ---
Dr. Beck to see pt, no further orders at this time,
--- NOTE | 2019-08-09 13:03 | Diagnostic Imaging Report ---
EXAMINATION: CHEST SINGLE (PORTABLE) INDICATION: ^chf ^[id number] ^1220 COMPARISON: 08/08/2019 FINDINGS: AP view TUBES and LINES: None. LUNGS: Lungs are well inflated. Mild bilateral pulmonary edema, slightly improved. No new consolidations. PLEURA: No pleural effusion or pneumothorax. HEART AND MEDIASTINUM: Stable enlargement of the cardiac silhouette. BONES AND SOFT TISSUES: Intact median sternotomy wires. Soft tissues are unremarkable. UPPER ABDOMEN: No free air under the diaphragm. IMPRESSION: Slightly improved bilateral pulmonary edema. Signed by: Dr. Tara Rollins M.D. on 08/09/2019 1:00 PM
[2019-08-09] MEDS: CEFTRIAXONE SOD 1 GM/NS 50 ML 50 ML IV SCH (13:32)
--- NOTE | 2019-08-09 14:45 | Progress Note ---
DATE: SUBJECTIVE: Mr. Smith is feeling better. His breathing is better. He has no new complaints. His COVID-19 came back negative. His urine cultures showing Actinobacteria, 10-50,000 Klebsiella pneumonia, 10-50,000 sensitivity pattern reviewed. PHYSICAL EXAMINATION: GENERAL: He is currently alert, oriented, does not seem to be in acute distress. VITAL SIGNS: Stable, currently afebrile. HEENT: Not icteric. NECK: Supple. CHEST: Clear. COR: No murmur. ABDOMEN: Soft, bowel sounds present. EXTREMITIES: No edema SKIN: No rash. IMPRESSION: 1. Sepsis secondary to pyelonephritis. 2. Urinary tract infection, doing well with Rocephin. Discontinue azithromycin. The patient can leave the unit to regular floor. Can be changed to oral antibiotic once clinically better. 3. Acute on chronic congestive heart failure. Cardiology is following. PLAN: Once the patient clinically better, can change to oral Ceftin 250 mg p.o. b.i.d. Discussed with the medical team. MD JAX Galvan/YESI /[id number]
--- NOTE | 2019-08-09 15:10 | NUR ---
REPORT CALLED TO RECEIVING NURSE, PT TRANSFERRED TO 286 WITH ALL BELONGINGS, ATTEMPTED TO CALL , NO ANSWER MESSAGE LEFT RE: ROOM NUMBER.
--- NOTE | 2019-08-09 15:26 | NUR ---
The pt. arrived to room 286 from 184 via pt. bed and is awake and alert. He is Bel[place]ian speaking only. The pt. is currently on o2 at 4l and in no distress. No isolation ordered at this time and the pt. was made comfortable.
--- NOTE | 2019-08-09 15:37 | NUR ---
Pulmonary Medicine DATE 08/09/2019 SUBJECTIVE COVID negative NRB given, weaned off 5 L/min oxygen Na better slowly REVIEW OF SYSTEMS: no rash, no bleeding OBJECTIVE: VITAL SIGNS: vital signs noted per the chart record. GENERAL: no distress, slightly pale HEENT: Normocephalic, atraumatic. NECK: Supple. Throat midline. LUNGS: Bilateral air entry, decreased breath sounds at bases. no wheezes CARDIOVASCULAR: S1, S2. No murmurs, rubs, or gallops. ABDOMEN: Soft, nontender. EXTREMITIES: No clubbing. No cyanosis. 1+ edema in the legs. INTEGUMENT: No rash or purpura. LABORATORY DATA: 3.8 k , cr 0.70. wbc 12. IMPRESSION AND PLAN: 1. Febrile syndrome, sepsis. 2. Urinary tract infection. A baumannii, klebsiella pneumonia. 3. Pneumonia. 4. Pleural effusions. 5. Strandy atelectasis, rule out chronic pleural disease. 6. Borderline RV enlargement, on CAT scan. 7. Hypertension. 8. Diabetes. 9. Peripheral vascular disease, s/p MORTGAGE LOAN ORIGINATOR left posterior tibialis artery. 10. Critical hyponatremia. 11. Leukocytosis. 12. Moderate anemia. 13. Mild rhabdomyolysis, CK elevation. correct Na per designated negative COVID-19 Continue antibiotics for community-acquired pneumonia wean oxygen per protocol DVT prophylaxis Thank you very much, Dr. Tamez for this consult. Please call for questions.
[2019-08-09] MEDS ORDERED: POTASSIUM CHLORIDE 20 MEQ TAB CR PO ONE (16:30)
[2019-08-09] MEDS: ENOXAPARIN SOD INJ 40 MG/0.4 ML SYR SC SCH (17:52)
[2019-08-09] MEDS: FUROSEMIDE INJ 10 MG/ML 4 ML VIAL IV SCH ×2 (17:52→23:59)
--- NOTE | 2019-08-09 19:05 | Progress Note ---
DATE: Medicine Progress Note SUBJECTIVE: The patient is doing well today with no complaints. He is off a non-rebreather, now he is on 4 L nasal cannula. PHYSICAL EXAMINATION: VITAL SIGNS: Temperature is 98.4, pulse 75, respiratory rate 20, blood pressure 116/79, pulse ox 100% on room air. LABORATORY FINDINGS: Show white count 12.1, hemoglobin 11.4, hematocrit 33.9, platelets of 294,000. Chemistry; sodium 130, potassium 3.8, chloride 91, bicarb 29, anion gap of 13, BUN 11, creatinine 0.7, calcium is 8.3. The viral panel was all negative, coronavirus PCR was negative. Microbiology; blood cultures negative, throat cultures negative, sputum cultures negative. Urine culture was noted Klebsiella and Acinetobacter with antibiotics being managed by ID. IMAGING STUDIES: Chest x-ray slightly improved bilateral pulmonary edema. PHYSICAL EXAMINATION: GENERAL: Not in acute distress, alert and oriented x3, cooperative on examination. HEENT: Normocephalic, atraumatic. Eyes; pupils are equal, round, and reactive to light bilaterally. Extraocular movements intact bilaterally. NECK: Supple. Good range of motion throughout. Throat; no evidence of erythema or exudates in the posterior pharynx. Has poor dentition. PULMONARY: Clear to auscultation bilaterally. No wheezing, rales, or rhonchi. No crackles appreciated. CARDIOVASCULAR: Positive S1, S2. No murmurs, rubs, or gallops appreciated. ABDOMEN: Soft, nondistended, and nontender to palpation. Bowel sounds present. MUSCULOSKELETAL: Strength is 5/5 throughout. No evidence of any muscle deficits on examination. No weakness appreciated. NEUROLOGIC: Cranial nerves 2 through 12 grossly intact. No evidence of any neurological deficits on exam. SKIN: Intact. Warm to touch. Good cap refill. PSYCHIATRIC: Normal affect and mood. EXTREMITIES: No edema. Good range of motion throughout. IMPRESSION: 1. Sepsis with leukocytosis secondary to underlying community-acquired pneumonia. 2. Hyponatremia, asymptomatic. 3. Type 2 diabetes. 4. Hypertension. 5. Benign prostatic hypertrophy. 6. Respiratory distress secondary to pulmonary edema, now on 4 L nasal cannula. 7. NSTEMI. PLAN: At this time, urine cultures are positive and are noted. Blood cultures and throat cultures were all negative. Continue with IV antibiotics being managed by ID. As for his hyponatremia, sodium is 130. He is on IV Lasix. He is still on oxygen 4 L nasal cannula, we are working on trying to wean him off. He will be just weaned off face mask non-rebreather this morning. Continue with scheduled diuretics x4 doses. Replace potassium accordingly. Still waiting on Cardiology consultation, recommendation ongoing for the last 3 days now. Troponin is slightly elevated. Await for Cardiology recommendations. CONSULTANTS INVOLVED: ID, Pulmonary, and Cardiology. Plan of care discussed with nursing staff. MD CONNOR Ellington/MODL /[id number]
[2019-08-09] MEDS ORDERED: ONDANSETRON HCL 4 MG ORAL DISINTEGRATING TAB PO PRN (19:30)
--- NOTE | 2019-08-09 20:30 | NUR ---
Assessment done.no resp.distress.bed alarm on.diaper changed.nasal cannula 2 litre o2.bed locked and in lowest position.phone and call light within reach.instructed to call for assistance as needed.
[2019-08-09] MEDS: AMLODIPINE BESYLATE 5 MG TAB PO SCH (21:30)
[2019-08-09] MEDS: BENAZEPRIL HCL 10 MG TAB PO SCH (21:41)
[2019-08-09] MEDS: ATORVASTATIN 20 MG TAB PO SCH (21:41)
[2019-08-09] MEDS: MELATONIN 5 MG TABLET PO PRN (21:58)
--- NOTE | 2019-08-09 23:56 | Progress Note ---
DATE: 08/09/2019 Cardiology Progress Note SUBJECTIVE: No major events overnight. OBJECTIVE: VITAL SIGNS: Temperature afebrile, pulse 72, respiratory rate 18, blood pressure 129/62, saturating 98% on room air. GENERAL: Elderly man, in no acute distress. CARDIOVASCULAR: Regular rate and rhythm. No murmurs, rubs, or gallops. LUNGS: Bibasilar rales. ABDOMEN: Soft, nontender, nondistended. NEURO AND PSYCH: Alert and awake. INPATIENT MEDICATIONS: Reviewed. LABORATORY DATA: Reviewed. White count is 12.6, hemoglobin 11.4, creatinine 0.7, sodium is 130. TELEMETRY DATA: Reviewed shows a paced rhythm along with sinus rhythm. ASSESSMENT AND PLAN: 1. Elevated troponin due to type 2 myocardial infarction. 2. History of coronary artery disease, status post coronary artery bypass graft. 3. History of chronic systolic congestive heart failure. 4. Pneumonia. 5. Hyponatremia. PLAN: Management of volume and sodium per Nephrology. Elevated troponin likely secondary to type 2 HI in the setting of severe pneumonia, continue current cardiovascular medications. Given the patient's functional status, no reason for ischemic workup or invasive evaluation at this time. We will continue to monitor clinically if there are any changes or evidence of ischemia otherwise. Thank you for this consult. We will continue to follow. MD NORA Rees/MARLENEL /[id number]
[2019-08-10] VITALS (7 sets, daily range): BP systolic 103–156; BP diastolic 51–93
[2019-08-10] MEDS: FUROSEMIDE INJ 10 MG/ML 4 ML VIAL IV SCH ×3 (05:54→21:48)
[2019-08-10 06:33] LABS: BASOPHILS # (AUTO) 0.1 (0.0-0.1); BASOPHILS % 0.5 % (0.0-1.0); EOSINOPHILS # (AUTO) 0.4 (0.0-0.4); LYMPHOCYTES # (AUTO) 1.1 (1.0-3.2); LYMPHOCYTES % 11.7 % (18.0-39.1); MEAN CORPUSCULAR HEMOGLOBIN 29.1 pg (28-32); MEAN CORPUSCULAR HGB CONC 33.3 g/dL (31-35); MEAN CORPUSCULAR VOLUME 87.4 fL (81-99); MONOCYTES # (AUTO) 1.1 (0.2-0.8); MONOCYTES % 11.6 % (4.4-11.3); NEUTROPHILS # (AUTO) 6.9 (2.1-6.9); NEUTROPHILS % 71.5 % (38.7-80.0); PLATELET COUNT 333 x10e3/uL (140-360); RED BLOOD COUNT 4.12 x10e6/uL (4.3-5.7); RED CELL DISTRIBUTION WIDTH 12.9 % (11.7-14.4)
[2019-08-10 06:58] LABS: ANION GAP 15.3 mmol/L (8-16); BLOOD UREA NITROGEN 14 mg/dL (7-26); BUN/CREATININE RATIO 18 (6-25); CALCIUM 8.5 mg/dL (8.4-10.2); CARBON DIOXIDE 27 mmol/L (22-29); CHLORIDE 93 mmol/L (98-107); CREATININE, SERUM 0.79 mg/dL (0.72-1.25); EST GLOMERULAR FILTRATION RATE > 60 ML/MIN (60-); GLUCOSE 179 mg/dL (74-118); POTASSIUM 4.3 mmol/L (3.5-5.1); SODIUM 131 mmol/L (136-145)
--- NOTE | 2019-08-10 07:00 | NUR ---
REPORT GIVEN TO ONCOMING RN.STABLE CONDITION.
--- NOTE | 2019-08-10 07:33 | Diagnostic Imaging Report ---
EXAMINATION: CHEST SINGLE (PORTABLE) INDICATION: Shortness of breath. COMPARISON: Chest radiograph 08/09/[address] chest 08/06/2019. FINDINGS: TUBES and LINES: None. LUNGS: Lungs are well inflated. Decreased bilateral perihilar and lower lung interstitial and airspace opacities, now mild. PLEURA: Decreased trace bilateral pleural effusions. No pneumothorax. HEART AND MEDIASTINUM: The cardiomediastinal silhouette is unremarkable. There are atherosclerotic calcifications within the aorta. BONES AND SOFT TISSUES: No acute osseous abnormality. Status post median sternotomy. UPPER ABDOMEN: No free air under the diaphragm. IMPRESSION: Decreasing mild pulmonary edema and trace bilateral pleural effusions. No new consolidation. Signed by: Dr. Kaylah Gay MD on 08/10/2019 7:29 AM
--- NOTE | 2019-08-10 08:00 | NUR ---
PT RESTING IN BED. RESP EVEN WITHOUT DISTRESS. DENIES OF ANY PAIN.
[2019-08-10] MEDS: TAMSULOSIN HCL 0.4 MG CAP PO SCH (09:48)
[2019-08-10] MEDS: METOPROLOL TARTRATE 25 MG TAB PO SCH ×2 (09:49→17:44)
[2019-08-10] MEDS: CLOPIDOGREL BISULFATE 75 MG TAB PO SCH (09:49)
[2019-08-10] MEDS: METOCLOPRAMIDE HCL 10 MG TAB PO SCH (09:49)
[2019-08-10] MEDS: INSULIN LISPRO 100 UNIT/1 ML 3ML VIAL SQ SCH ×4 (09:54→21:00)
--- NOTE | 2019-08-10 13:20 | NUR ---
DR. MENDOZA AND DR. STAHL AT BEDSIDE. NEW ORDERS NOTED.
[2019-08-10] MEDS: CEFTRIAXONE SOD 1 GM/NS 50 ML 50 ML IV SCH (14:00)
[2019-08-10] MEDS ORDERED: SODIUM CHLORIDE 0.9% 250ML 250 ML ONE (16:19)
--- NOTE | 2019-08-10 16:23 | NUR ---
Pulmonary Medicine DATE 08/10/2019 SUBJECTIVE 2 L/min oxygen not walking eating well covid negative REVIEW OF SYSTEMS: no rash, no bleeding OBJECTIVE: VITAL SIGNS: vital signs noted per the chart record. GENERAL: no distress, slightly pale HEENT: Normocephalic, atraumatic. NECK: Supple. Throat midline. LUNGS: Bilateral air entry, decreased breath sounds at bases. no wheezes CARDIOVASCULAR: S1, S2. No murmurs, rubs, or gallops. ABDOMEN: Soft, nontender. EXTREMITIES: No clubbing. No cyanosis. 1+ edema in the legs. INTEGUMENT: No rash or purpura. LABORATORY DATA: 4.3 k, cr 0.79 wbc 9.59. plt 333. . IMPRESSION AND PLAN: 1. Febrile syndrome, sepsis. 2. Urinary tract infection. A baumannii, klebsiella pneumonia. 3. Pneumonia. 4. Pleural effusions. 5. Strandy atelectasis, rule out chronic pleural disease. 6. Borderline RV enlargement, on CAT scan. 7. Hypertension. 8. Diabetes. 9. Peripheral vascular disease, s/p MARKET RESEARCH WORKER left posterior tibialis artery. 10. Critical hyponatremia. 11. Leukocytosis. 12. Moderate anemia. 13. Mild rhabdomyolysis, CK elevation. correct Na per designated negative COVID-19 Continue antibiotics for community-acquired pneumonia wean oxygen per protocol DVT prophylaxis diuretics ok ensure cxr continues to improve Thank you very much, Dr. Tamez for this consult. Please call for questions.
[2019-08-10] MEDS: ENOXAPARIN SOD INJ 40 MG/0.4 ML SYR SC SCH (17:44)
--- NOTE | 2019-08-10 18:07 | NUR ---
PT RESTING IN BED. RESP EVEN WITHOUT DISTRESS.
--- NOTE | 2019-08-10 18:53 | Progress Note ---
DATE: 08/10/2019 Medicine Progress Note SUBJECTIVE: The patient is reportedly doing much better today with no complaints. His breathing much better. He is on room air. PHYSICAL EXAMINATION: VITAL SIGNS: Temperature is 97.8, pulse 84, respiratory rate is 16, blood pressure 131/62, and pulse ox 99% on room air. GENERAL: In no acute distress. Alert and oriented x3. Cooperative on examination. HEENT: Normocephalic, atraumatic. Eyes; pupils are equal, round and reactive to light bilaterally. Extraocular movements are was intact. Throat; no evidence of erythema or exudates in the posterior pharynx. He has poor dentition. NECK: Supple. Good range of motion. Pulmonary: Clear to auscultation bilaterally. No wheezing, rales, or rhonchi. No crackles appreciated. CARDIOVASCULAR: Positive S1, S2. No murmurs, rubs, or gallops appreciated. ABDOMEN: Soft, nondistended, and nontender to palpation. Bowel sounds present. MUSCULOSKELETAL: Strength is 5/5 throughout. No evidence of any muscle deficits on examination. No weakness appreciated. NEUROLOGIC: Cranial nerves II through XII grossly intact. No evidence of any neurological deficits on exam. SKIN: Intact. Warm to touch. Good cap refill. PSYCHIATRIC: Normal affect and mood. EXTREMITIES: No edema. Good range of motion throughout. LABORATORY FINDINGS: Show white count is 9.5, hemoglobin 12, hematocrit 36, and platelets of 333. Chemistry reviewed and stable. Sodium is 131, much improved. Rest of electrolytes are stable. MICROBIOLOGY: Urine cultures are noted. Blood cultures, no growth. Throat cultures, no growth. Sputum cultures, no growth. IMAGING STUDIES: Chest x-ray this morning, decreased small pulmonary edema and trace bilateral pleural effusions, no new consolidation. IMPRESSION: 1. Sepsis with leukocytosis secondary to underlying community-acquired pneumonia. 2. Hyponatremia, asymptomatic, now improved. 3. Type 2 diabetes. 4. Hypertension. 5. Benign prostatic hypertrophy. 6. Respiratory distress secondary to pulmonary edema, now improved on room air. 7. Non-ST elevation myocardial infarction. PLAN: At this time, blood cultures are negative and urine cultures were noted to have a UTI. He is on IV antibiotics, being managed by ID. Sodium level improved to 131. Continue with Lasix 40 mg IV b.i.d. He is currently being weaned off. Get a chest x-ray in the morning. Discussed case with Cardiology. Reportedly, he thinks the NSTEMI from type 2 SC. No further cardiac workup was needed. Get a.m. labs. CONSULTANTS INVOLVED: ID, Pulmonary, and Cardiology. MD CONNOR Ellington/MODL /[id number]
[2019-08-10] MEDS: AMLODIPINE BESYLATE 5 MG TAB PO SCH (21:48)
[2019-08-10] MEDS: ATORVASTATIN 20 MG TAB PO SCH (21:48)
[2019-08-10] MEDS: BENAZEPRIL HCL 10 MG TAB PO SCH (21:48)
--- NOTE | 2019-08-10 23:19 | Progress Note ---
DATE: 08/10/2019 Cardiology Progress Note SUBJECTIVE: No major events overnight. OBJECTIVE: VITAL SIGNS: Temperature afebrile, pulse 80, respiratory rate 20, blood pressure 125/58, and saturating 98% on room air. GENERAL: Elderly man, in no acute distress. CARDIOVASCULAR: Regular rate and rhythm. No murmurs, rubs, or gallops. LUNGS: Bilateral rales. ABDOMEN: Soft, nontender, and nondistended. NEURO AND PSYCH: Alert and oriented. INPATIENT MEDICATIONS: Reviewed. LABORATORY DATA: Reviewed. TELEMETRY DATA: Reviewed, shows normal sinus rhythm. ASSESSMENT AND PLAN: 1. Elevated troponin due to type 2 myocardial infarction. 2. History of coronary artery disease, status post coronary artery bypass graft. 3. History of chronic systolic congestive heart failure. 4. Pneumonia. 5. Hyponatremia. PLAN: Continue IV diuretics for management of hyponatremia per Nephrology. Remains chest pain free. Elevated troponin due to type 2 IA do not recommend ischemic workup at this time. Continue cardiovascular medications otherwise. Thank you for this consult. We will continue to follow. MD NORA Rees/MARLENEL /[id number]
[2019-08-11] VITALS: BP 153/72
[2019-08-11 04:00] VITALS: BP 118/56
[2019-08-11 05:51] LABS: BASOPHILS # (AUTO) 0.1 (0.0-0.1); BASOPHILS % 0.8 % (0.0-1.0); EOSINOPHILS # (AUTO) 0.4 (0.0-0.4); EOSINOPHILS % 4.9 % (0.0-6.0); HEMATOCRIT 38.6 % (38.2-49.6); HEMOGLOBIN 13.2 g/dL (14.0-18.0); LYMPHOCYTES # (AUTO) 1.5 (1.0-3.2); LYMPHOCYTES % 16.4 % (18.0-39.1); MEAN CORPUSCULAR HEMOGLOBIN 29.7 pg (28-32); MEAN CORPUSCULAR HGB CONC 34.2 g/dL (31-35); MEAN CORPUSCULAR VOLUME 86.7 fL (81-99); MONOCYTES % 11.3 % (4.4-11.3); NEUTROPHILS # (AUTO) 5.8 (2.1-6.9); NEUTROPHILS % 65.7 % (38.7-80.0); PLATELET COUNT 338 x10e3/uL (140-360); RED BLOOD COUNT 4.45 x10e6/uL (4.3-5.7); RED CELL DISTRIBUTION WIDTH 12.7 % (11.7-14.4)
[2019-08-11 06:20] LABS: ANION GAP 15.7 mmol/L (8-16); BLOOD UREA NITROGEN 14 mg/dL (7-26); BUN/CREATININE RATIO 17 (6-25); CALCIUM 8.9 mg/dL (8.4-10.2); CARBON DIOXIDE 28 mmol/L (22-29); CHLORIDE 93 mmol/L (98-107); CREATININE, SERUM 0.83 mg/dL (0.72-1.25); EST GLOMERULAR FILTRATION RATE > 60 ML/MIN (60-); GLUCOSE 189 mg/dL (74-118); POTASSIUM 4.7 mmol/L (3.5-5.1); SODIUM 132 mmol/L (136-145)
--- NOTE | 2019-08-11 07:20 | NUR ---
Bedside report and rounds completed with oncoming nurse. Patient in bed with call light within reach. No issues or concerns noted.
[2019-08-11] MEDS: INSULIN LISPRO 100 UNIT/1 ML 3ML VIAL SQ SCH ×2 (07:30→12:19)
[2019-08-11 08:00] VITALS: BP_SYST 118; BP_SYST 140; BP_DIAS 56; BP_DIAS 64
[2019-08-11] MEDS: CLOPIDOGREL BISULFATE 75 MG TAB PO SCH (09:00)
[2019-08-11] MEDS: METOCLOPRAMIDE HCL 10 MG TAB PO SCH (09:00)
[2019-08-11] MEDS: FUROSEMIDE INJ 10 MG/ML 4 ML VIAL IV SCH (09:00)
[2019-08-11] MEDS: METOPROLOL TARTRATE 25 MG TAB PO SCH (09:00)
--- NOTE | 2019-08-11 10:00 | NUR ---
PATIENT UP AMBULATING USING ROLLING WALKER WITH PHYSICAL THERAPY. GOOD STEADY GAIT.
--- NOTE | 2019-08-11 10:10 | Diagnostic Imaging Report ---
EXAMINATION: CHEST SINGLE (PORTABLE) INDICATION: Shortness of breath COMPARISON: Chest radiograph 08/10/2019 FINDINGS: LINES/TUBES:EKG leads overlie the chest. LUNGS:The lungs are moderately inflated. There is perihilar fullness and indistinctness of the pulmonary vasculature. PLEURA:No pleural effusion or pneumothorax. MEDIASTINUM:The cardiomediastinal silhouette appears unchanged in size and shape. Atherosclerotic calcifications of the thoracic aorta. BONES/SOFT TISSUES:No acute osseous injury. Sternotomy wires in place. ABDOMEN:No free air under the diaphragm. IMPRESSION: Mild pulmonary interstitial edema. Signed by: Juliana Hagan MD on 08/11/2019 10:07 AM
[2019-08-11] MEDS: TAMSULOSIN HCL 0.4 MG CAP PO SCH (10:19)
--- NOTE | 2019-08-11 11:00 | NUR ---
PT SITTING UP IN CHAIR. CALL LIGHT WITHIN REACH.
--- NOTE | 2019-08-11 11:30 | Progress Note ---
DATE: SUBJECTIVE: Mr. Smith is doing much better today. There are no new complaints. REVIEW OF SYSTEMS: HEENT: Negative. PULMONARY: Negative. CARDIAC: Negative. : Negative. PHYSICAL EXAMINATION: GENERAL: He is currently alert and oriented, does not seem to be in acute distress. VITAL SIGNS: Stable, currently afebrile. HEENT: He is not icteric. NECK: Supple. CHEST: Clear. HEART: S1 and S2. No S3, S4, or murmur. ABDOMEN: Soft. IMPRESSION: 1. Urinary tract infection, present on admission. 2. Sepsis on admission, resolved. 3. Anemia of chronic disease. From Infectious Disease point of view, the patient is improving, can switch to oral antibiotics soon. We will discuss with the medical team. We will follow. MD JAX Galvan/YESI /[id number]
[2019-08-11 12:00] VITALS: BP 136/64
--- NOTE | 2019-08-11 13:17 | NUR ---
Pulmonary Medicine DATE 08/11/2019 SUBJECTIVE RA fio2 eating ok walked the atkins finally feels stronger REVIEW OF SYSTEMS: no rash, no bleeding OBJECTIVE: VITAL SIGNS: vital signs noted per the chart record. GENERAL: no distress, slightly pale HEENT: Normocephalic, atraumatic. NECK: Supple. Throat midline. LUNGS: Bilateral air entry, decreased breath sounds at bases. no wheezes CARDIOVASCULAR: S1, S2. No murmurs, rubs, or gallops. ABDOMEN: Soft, nontender. EXTREMITIES: No clubbing. No cyanosis. 1+ edema in the legs. INTEGUMENT: No rash or purpura. LABORATORY DATA: 4.7 k, cr 0.83. wbc 8.8. hct 38. plt 338. . IMPRESSION AND PLAN: 1. Febrile syndrome, sepsis. 2. Urinary tract infection. A baumannii, klebsiella pneumonia. 3. Pneumonia. 4. Pleural effusions. 5. Strandy atelectasis, rule out chronic pleural disease. 6. Borderline RV enlargement, on CAT scan. 7. Hypertension. 8. Diabetes. 9. 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 10. Critical hyponatremia. 11. Leukocytosis. 12. Moderate anemia. 13. Mild rhabdomyolysis, CK elevation. negative COVID-19 Continue antibiotics for community-acquired pneumonia wean oxygen per protocol DVT prophylaxis diuretics continue ensure cxr continues to improve Thank you very much, Dr. Tamez for this consult. Please call for questions.
[2019-08-11] MEDS: CEFTRIAXONE SOD 1 GM/NS 50 ML 50 ML IV SCH (14:06)
--- NOTE | 2019-08-11 15:00 | NUR ---
CALLED PT'S . INSTRUCTED HER IS DISCHARGED HOME. DISCHARGE INSTRUCTIONS GIVEN OVER THE PHONE. FOLLOW UP APPTS. RX GIVEN TO THE PATIENT, DIET, ACTIVITY TOLERATED. VOICED UNDERSTANDING.
[2019-08-11] MEDS ORDERED: AUGMENTIN 875-1 EACH PO (15:34)
[2019-08-11] MEDS ORDERED: LASIX40 MG PO (15:34)
[2019-08-11 16:00] VITALS: BP 130/63
--- NOTE | 2019-08-11 16:00 | NUR ---
DISCHARGE INSTRUCTIONS GIVEN TO THE PT REGARDING, DIET, MEDS, F/U WITH MD'S, ACTIVITY AND SAFETY. RX GIVEN TO THE PATIENT. PT VOICED UNDERSTANDING.
--- NOTE | 2019-08-11 16:30 | NUR ---
DC'ED TELEMETRY. DC'ED HL. PT TOLERATED WELL.
--- NOTE | 2019-08-11 17:00 | NUR ---
PT TAKEN TO PERSONAL CAR VIA . IS HERE TO TAKE HIM HOME. PT HAS ALL PERSONAL BELONGINGS.
--- NOTE | 2019-08-12 00:28 | Discharge Summary ---
FINAL DISCHARGE DIAGNOSES: 1. Sepsis with leukocytosis secondary to community-acquired pneumonia-resolved. 2. Hyponatremia, asymptomatic-resolved. 3. Type 2 diabetes. 4. Hypertension. 5. Benign prostatic hypertrophy. 6. Respiratory distress secondary to pulmonary edema-resolved. 7. [id number] elevation myocardial infarction, secondary type 2 myocardial infarction due to troponin leakage-no further workup needed by Cardiology. CONSULTANTS: ID, Pulmonary, and Cardiology. VITAL SIGNS: Temperature is 98, pulse 79, respiratory rate is 18, blood pressure 130/63, pulse ox 99% on room air. LABORATORY FINDINGS: Show white count 8.8, hemoglobin 13.2, hematocrit 38.6, and platelets of 338. Chemistry; sodium 132, potassium 4.7, chloride 93, bicarb 23, anion gap of 15, BUN is 14, creatinine is 0.83, glucose is 189, calcium is 8.9, phosphorus is 2.5. Total bilirubin is 0.8, AST is 26, ALT 21, albumin 2.9. Troponins were elevated, of note was 0.578 on the last draw. Albumin 2.9. LDL cholesterol 26, HDL was 33, triglycerides 61. TSH is 0.66. Urinalysis noted. Viral panel was negative. Coronavirus PCR was negative. Blood cultures were negative. Throat cultures were negative. Urine culture show Acinetobacter and Klebsiella pneumoniae. Sputum cultures were negative. IMAGING STUDIES: On 08/11/2019, chest x-ray shows mild pulmonary interstitial edema. Chest CT on 08/06/2019, shows no evidence of any pulmonary embolism. There are some pulmonary arteries that are normal in caliber. There is some bilateral interstitial edema and small bilateral pleural effusion with adjacent bibasilar atelectasis. HOSPITAL COURSE: This is an 78-year-old male, who came into the ED with complaints of shortness of breath, cough, congestion, needing further evaluation and management. The patient was admitted, in which he was initially admitted for COVID-19 rule out. He was also found to have community-acquired pneumonia. The patient was on broad-spectrum IV antibiotic therapy. ID was following. Blood cultures were negative. Urine cultures were noted. The patient was discharged on antibiotics. The patient was also found to have hyponatremia, was treated accordingly. Pulmonary was consulted for underlying shortness of breath. The patient improved throughout the hospital course with IV diuretics. He did not need oxygen prior to being discharged. He was on room air. His blood pressure and diabetes were well managed and controlled. In terms of his NSTEMI, Cardiology was consulted. It was felt by Cardiology, this is likely a type 2 IL due to a troponin leakage. No further workup needed by Cardiology. The patient was cleared for discharge by ID, Pulmonary, and Cardiology. The patient was discharged on oral antibiotics. On the day of discharge, vital signs were stable. Labs reviewed and stable. The patient is seen and evaluated and examined thoroughly on the day of discharge with no other complaints. The patient verbalized understanding and agreed to plan of care to follow up as an outpatient with the PCP in 1 week and the rest of the consultants described above in about 2 weeks' time. MEDICATIONS: See med reconciliation form. DISPOSITION: Home. CONDITION: Stable. DIET: Heart healthy. In the event of any worsening symptoms, the patient was advised to come back to the ED for further evaluation. Discharge summary took greater than 35 minutes. MD CONNOR Ellington/YSEI /[id number]
--- NOTE | 2019-08-12 06:54 | Progress Note ---
DATE: 08/11/2019 SUBJECTIVE: Mr. Smith is a pleasant gentleman, , who was admitted with complaints of fever, chills, and cough. The patient is 78 years old. He has complicated past medical history, was seen by multiple specialties. The patient was diagnosed with type 2 myocardial infarction based on elevated troponin that was worked up and also has coronary artery disease, status post CABG. The patient was admitted with sepsis, possibly secondary to pyelonephritis with UTI. The patient is treated with IV antibiotics and currently comfortable in bed. REVIEW OF SYSTEMS: No nausea, vomiting, fever, chills, chest pain, shortness of breath, headache, dysuria, polyuria, rash. ALLERGIES: TO ASPIRIN. LABORATORY DATA: White blood cells 8.83, hemoglobin 13.2, and platelet 338. Sodium 132, potassium 4.7, creatinine 0.83. SEROLOGY: COVID-19 not detected. Influenza A and B antigen negative. Group A Strep screen negative. Forrester-influenza not detected. Other coronaviruses and human metapneumovirus PCR negative. Adenovirus PCR negative. MICROBIOLOGY: Urine culture showed Acinetobacter baumannii and Klebsiella with many options as far as antibiotics. Blood culture was negative. Throat culture showed usual respiratory ryan present. RADIOLOGY STUDIES: The patient had a chest x-ray today, showing mild pulmonary interstitial edema. OBJECTIVE: VITAL SIGNS: Temperature is 97. The patient has been afebrile since 08/06/2019 on 1355 hours. GENERAL: Alert and oriented, in no acute distress. CV: S1 and S2. CHEST: Equal expansion. Clear to auscultation. HEENT: Moist. No pallor. No JVD. ABDOMEN: Soft and nontender. No distention. EXTREMITIES: Moves all. No acute distress. No edema. ASSESSMENT AND PLAN: 1. This is a pleasant 78-year-old gentleman, admitted with sepsis secondary to urinary tract infection, who was found to have elevated troponin. On further workup by Cardiology showed type 2 myocardial infarction. 2. Electrolyte abnormalities per other specialties. 3. Fever, resolved. 4. Diabetes. 5. Hypertension. His serology came back negative as I mentioned above. The patient is currently on Rocephin. The patient can be discharged with Ceftin 250 mg p.o. twice a day when ready for discharge. This case was discussed with Dr. Milligan. Please refer to the chart for more information. Dictated by Jair Pete PA-C (Al) MD CHRIS Galvan/YESI /[id number]
--- NOTE | 2019-08-12 22:22 | Discharge Summary ---
ADDENDUM: Urine cultures populated and sensitivities noted. I called in a prescription for Omnicef 300 mg p.o. b.i.d. x5 additional days for his urinary tract infection. I spoke with his , Lynn by phone. I sent the prescription to the patient's pharmacy at [facility], and I spoke with his , Lynn by phone [phone]. I discussed with her the antibiotics were sent to the pharmacy. In the event, she does not receive them for her , she was advised to please call the hospital and we will reorder these. I left a voice message with [facility]. I repeated the order several times. Discussed with nurse and the patient's and they verbalized understanding. MD CONNOR Ellington/YESI /[id number]
== END 2019-08-11 17:18 | disposition home or self-care (01) | DRG 871 ==
LOC: ER 13:28 → ERHOLD 18:04 → IMCU 21:15 → MED/SURG3 08-09 15:17
PROVIDERS: ADMIT Internal Medicine; ATTEND Internal Medicine
DX: A41.9 Sepsis, unspecified organism (principal); I21.A1 Myocardial infarction type 2; J18.9 Pneumonia, unspecified organism; I50.23 Acute on chronic systolic (congestive) heart failure; E87.1 Hypo-osmolality and hyponatremia; M62.82 Rhabdomyolysis; N12 Tubulo-interstitial nephritis, not specified as acute or chronic; N40.0 Benign prostatic hyperplasia without lower urinary tract symptoms; R79.89 Other specified abnormal findings of blood chemistry; Z95.1 Presence of aortocoronary bypass graft; Z86.73 Personal history of transient ischemic attack (TIA), and cerebral infarction without residual deficits; E03.9 Hypothyroidism, unspecified; E11.51 Type 2 diabetes mellitus with diabetic peripheral angiopathy without gangrene; B96.1 Klebsiella pneumoniae [K. pneumoniae] as the cause of diseases classified elsewhere; B96.89 Other specified bacterial agents as the cause of diseases classified elsewhere; I11.0 Hypertensive heart disease with heart failure; D63.8 Anemia in other chronic diseases classified elsewhere; R06.09 Other forms of dyspnea
CPT/HCPCS: 36415; 71045; 71260; 80048; 80053; 80061; 81001; 82550; 82553; 82728; 82948; 83518; 83605; 83735; 83880; 84100; 84295; 84436; 84443; 84479; 84484; 85025; 85379; 85610; 85730; 86140; 87040; 87070; 87086; 87186; 87205; 87400; 87633; 87635; 93005; 97139; 99284; J0360; J0456; J0696; J1650; J1940; J2405; J7030; J7050; J7070; Q9967

== ENCOUNTER → 2021-01-13 | Day surgery (SDC) | payer MEDICARE ==
[2021-01-11 10:53] LABS: BASOPHILS # (AUTO) 0.1 (0.0-0.1); BASOPHILS % 0.7 % (0.0-1.0); EOSINOPHILS # (AUTO) 0.1 (0.0-0.4); HEMATOCRIT 41.8 % (38.2-49.6); HEMOGLOBIN 14.1 g/dL (14.0-18.0); LYMPHOCYTES # (AUTO) 1.2 (1.0-3.2); LYMPHOCYTES % 13.5 % (18.0-39.1); MEAN CORPUSCULAR HEMOGLOBIN 29.8 pg (28-32); MEAN CORPUSCULAR HGB CONC 33.7 g/dL (31-35); MEAN CORPUSCULAR VOLUME 88.4 fL (81-99); MONOCYTES # (AUTO) 0.7 (0.2-0.8); MONOCYTES % 8.1 % (4.4-11.3); NEUTROPHILS # (AUTO) 6.8 (2.1-6.9); NEUTROPHILS % 76.3 % (38.7-80.0); PLATELET COUNT 215 x10e3/uL (140-360); RED BLOOD COUNT 4.73 x10e6/uL (4.3-5.7); RED CELL DISTRIBUTION WIDTH 12.3 % (11.7-14.4)
[~2021-01-13] MED LIST changes: +AUGMENTIN 875-1 EACH PO; +FLOMAX0.4 MG PO; +LASIX40 MG PO
[2021-01-13 08:35] VITALS: BP 176/82
== END | disposition home or self-care (01) ==
LOC: OR 05:27
PROVIDERS: ATTEND Internal Medicine Gastroenterology
DX: K22.2 Esophageal obstruction (principal); K29.50 Unspecified chronic gastritis without bleeding; I25.810 Atherosclerosis of coronary artery bypass graft(s) without angina pectoris; I10 Essential (primary) hypertension; I44.0 Atrioventricular block, first degree; E11.9 Type 2 diabetes mellitus without complications; Z88.6 Allergy status to analgesic agent; Z01.810 Encounter for preprocedural cardiovascular examination; Z01.812 Encounter for preprocedural laboratory examination; Z20.822 Contact with and (suspected) exposure to COVID-19; Z79.02 Long term (current) use of antithrombotics/antiplatelets; Z79.4 Long term (current) use of insulin; Z95.1 Presence of aortocoronary bypass graft
CPT/HCPCS: 36415; 43233; 43239; 85025; 93005; U0002

== ENCOUNTER 2022-08-15 04:25 | Emergency (ER) | payer MEDICARE ==
[~2022-08-15] VITALS: Ht 154.2 cm; Wt 67.1 kg
[2022-08-15] MEDS ORDERED: SODIUM CHLORIDE 0.9% 1000ML 1,000 ML IV STA (04:28)
[2022-08-15] MEDS ORDERED: ACETAMINOPHEN 325 MG TAB PO STA (04:28)
[2022-08-15 04:55] LABS: BASOPHILS # (AUTO) 0.1 (0.0-0.1); BASOPHILS % 0.3 % (0.0-1.0); HEMATOCRIT 38.3 % (38.2-49.6); HEMOGLOBIN 13.1 g/dL (14.0-18.0); LYMPHOCYTES # (AUTO) 0.4 (1.0-3.2); MEAN CORPUSCULAR HEMOGLOBIN 30.6 pg (28-32); MEAN CORPUSCULAR HGB CONC 34.2 g/dL (31-35); MEAN CORPUSCULAR VOLUME 89.5 fL (81-99); MONOCYTES # (AUTO) 1.4 (0.2-0.8); MONOCYTES % 6.9 % (4.4-11.3); NEUTROPHILS # (AUTO) 18.3 (2.1-6.9); NEUTROPHILS % 90.3 % (38.7-80.0); PLATELET COUNT 231 x10e3/uL (140-360); RED BLOOD COUNT 4.28 x10e6/uL (4.3-5.7); RED CELL DISTRIBUTION WIDTH 11.9 % (11.7-14.4)
[2022-08-15 05:14] LABS: ALBUMIN 3.8 g/dL (3.5-5.0); ANION GAP 19.2 mmol/L (8-16); CALCIUM 8.9 mg/dL (8.4-10.2); CREATININE, SERUM 0.86 mg/dL (0.72-1.25); POTASSIUM 4.2 mmol/L (3.5-5.1)
[2022-08-15 05:18] LABS: B-TYPE NATRIURETIC PEPTIDE2 103.7 pg/mL (0-100)
[2022-08-15 05:20] LABS: CREATINE KINASE MB 1.5 ng/mL (0-5.0)
[2022-08-15 06:15] LABS: CLARITY,URINE CLEAR (CLEAR); COLOR,URINE YELLOW (YELLOW); LEUKOCYTE ESTERASE ,URINE NEGATIVE (NEGATIVE); NITRITE,URINE NEGATIVE (NEGATIVE); PROTEIN,URINE DIPSTICK NEGATIVE (NEGATIVE)
[2022-08-15 06:16] LABS: KETONES,URINE TRACE (NEGATIVE); URINE UROBILINOGEN 0.2 mg/dL (0.2 - 1)
[2022-08-15 06:30] LABS: RBC,URINE 0-5 /HPF (0-5); WBC,URINE (MAN) 0-5 /HPF (0-5)
[2022-08-15] MEDS ORDERED: Vancomycin IV 500 MG in SODIUM CHLORIDE 0.9% 100 ML IV STA (06:36)
[2022-08-15] MEDS ORDERED: Vancomycin IV 500 MG ONE (06:41)
[2022-08-15] MEDS ORDERED: SODIUM CHLORIDE 0.9% 100 ML ONE (06:42)
== END 2022-08-15 08:38 | disposition other institution (70) ==
LOC: ER 04:31
DX: R50.9 Fever, unspecified (principal); R65.20 Severe sepsis without septic shock; R53.1 Weakness; E11.65 Type 2 diabetes mellitus with hyperglycemia; I10 Essential (primary) hypertension; E03.9 Hypothyroidism, unspecified; I50.9 Heart failure, unspecified; K21.9 Gastro-esophageal reflux disease without esophagitis; Z20.822 Contact with and (suspected) exposure to COVID-19; R94.31 Abnormal electrocardiogram [ECG] [EKG]; I25.2 Old myocardial infarction; Z95.1 Presence of aortocoronary bypass graft; Z86.73 Personal history of transient ischemic attack (TIA), and cerebral infarction without residual deficits
CPT/HCPCS: 36415; 71045; 80053; 81001; 82550; 82553; 83605; 83880; 84484; 85025; 87040; 93005; 99284; J2543; J3370; J7030; J7050; U0002

== ENCOUNTER → 2023-05-22 | Outpatient (REF) | payer MEDICARE | LOC: DX 09:57 | PROVIDERS: ATTEND Physician Assistant Medical | DX: I63.9 Cerebral infarction, unspecified (principal); R13.10 Dysphagia, unspecified | CPT/HCPCS: 74230 ==

== ENCOUNTER → 2024-05-22 | Day surgery (SDC) | payer MEDICARE ==
[2024-05-14 14:19] LABS: BASOPHILS # (AUTO) 0.1 (0.0-0.1); BASOPHILS % 0.6 % (0.0-1.0); EOSINOPHILS # (AUTO) 0.1 (0.0-0.4); EOSINOPHILS % 1.2 % (0.0-6.0); HEMATOCRIT 42.1 % (38.2-49.6); HEMOGLOBIN 13.5 g/dL (14.0-18.0); LYMPHOCYTES % 25.4 % (18.0-39.1); MEAN CORPUSCULAR HEMOGLOBIN 30.3 pg (28-32); MEAN CORPUSCULAR HGB CONC 32.1 g/dL (31-35); MEAN CORPUSCULAR VOLUME 94.4 fL (81-99); MONOCYTES # (AUTO) 0.8 (0.2-0.8); MONOCYTES % 9.7 % (4.4-11.3); NEUTROPHILS % 62.9 % (38.7-80.0); PLATELET COUNT 227 x10e3/uL (140-360); RED BLOOD COUNT 4.46 x10e6/uL (4.3-5.7); RED CELL DISTRIBUTION WIDTH 12.8 % (11.7-14.4); WHITE BLOOD COUNT 8.02 x10e3/uL (4.8-10.8)
[~2024-05-22] MED LIST changes: +D3 PLUS K2 DOT1 EACH PO; +LACTATED RINGER'S 1,000 ML ONE; +LIDOCAINE HCL 2% LOCAL INJ 5 ML SDV VIAL INJ ONE; +PROPOFOL IV EMULSION 10 MG/ML 20 ML VIAL ONE; +VITAMIN A3000 MCG PO; +VITAMIN C1000 MG PO; +ZINC50 M2 PO
[2024-05-22 09:50] VITALS: BP 108/56; PULSE 62; RESP 17; O2SAT 98
== END | disposition home or self-care (01) ==
LOC: ENDO 08:10
PROVIDERS: ATTEND Internal Medicine Gastroenterology
DX: K22.2 Esophageal obstruction (principal); K29.50 Unspecified chronic gastritis without bleeding; E11.9 Type 2 diabetes mellitus without complications; I10 Essential (primary) hypertension; I25.2 Old myocardial infarction; I25.10 Atherosclerotic heart disease of native coronary artery without angina pectoris; Z78.9 Other specified health status; E03.9 Hypothyroidism, unspecified; I44.0 Atrioventricular block, first degree; I45.10 Unspecified right bundle-branch block; Z88.6 Allergy status to analgesic agent; Z01.810 Encounter for preprocedural cardiovascular examination; Z01.812 Encounter for preprocedural laboratory examination; Z79.02 Long term (current) use of antithrombotics/antiplatelets; Z79.899 Other long term (current) drug therapy; Z99.3 Dependence on wheelchair; Z86.73 Personal history of transient ischemic attack (TIA), and cerebral infarction without residual deficits; Z98.61 Coronary angioplasty status
CPT/HCPCS: 36415; 43249; 85025; 93005; J2003; J2704; J7121; 43235; 43450